=== PATIENT | male | born 1935 | race Caucasian/White ===

== ENCOUNTER 2017-01-02 22:46 | Inpatient (IN) ==
[2017-01-02] MEDS ORDERED: LACTATED RINGERS 1,000 ML IV ONE (23:29)
--- NOTE | 2017-01-02 23:33 | Emergency Department Note ---
Abdominal Pain HPI - General Chief Complaint: Abdominal Pain Stated Complaint: c/o stamach pain also fever Time Seen by Provider: 01/02/17 23:19 Mode of arrival: wheelchair - History of Present Illness HPI Narrative: Patient comes in today via EMS, too weak to get up on his own he weighs probably 300 pounds and has been getting weaker and weaker over the course of last 24 hours. States today had 2 episodes of vomiting, any changes colostomy bag about noon and there has been no output is bag since about noon. Does have a history of A. fib, chronic takes Coumadin. Very weak today, denies cough, history of smoking in the past but quit many years ago, history of colon cancer with colostomy in the left lower quadrant that he's had for last 20 years.denies urinary symptoms, he does have some chronic lower leg ulcers as well. MD Complaint: abdominal pain - Related Data Home Medications Medication Instructions Recorded Confirmed Allopurinol [Zyloprim] 200 mg PO DAILY 05/29/15 05/29/15 Furosemide [Lasix] 40 mg PO DAILY 05/29/15 05/29/15 Glimepiride [Amaryl] 1 mg PO QAMAC 05/29/15 05/29/15 Levothyroxine [Synthroid] 25 mcg PO DAILY 05/29/15 05/29/15 Oxybutynin Chloride [Oxybutynin 10 mg PO DAILY 05/29/15 05/29/15 Chloride ER] Simvastatin [Zocor] 40 mg PO HS 05/29/15 05/29/15 cloNIDine HCL [Catapres] 0.1 mg PO BID 05/29/15 05/29/15 hydrALAZINE [Apresoline] 25 mg PO BID 05/29/15 05/29/15 Previous Rx's Medication Instructions Recorded HYDROcodone/APAP 5/325MG [[place] 1 - 2 tab PO Q4HP PRN #20 tablet 05/29/15 5/325Mg] Allergies Allergy/AdvReac Type Severity Reaction Status Date / Time No Known Drug Allergies Allergy Unverified 05/29/15 10:46 Review of Systems All systems ED: reviewed and negative except as stated. Constitutional: Reports: fever, chills, weakness Cardiovascular: Reports: palpitations, dyspnea on exertion. Denies: chest pain Genitourinary: Denies: dysuria, frequency Musculoskeletal: Reports: back pain Abdominal Pain PMH - Past Medical History Attestation: Yes: The following information was validated with the patient. Medical history: Reports: atrial fibrillation, coronary artery disease, GERD, hyperlipidemia, obesity, osteoporosis, peripheral artery disease, other ( history of gout, history of colon cancer) Reports: diverticulosis, diverticulitis Surgical history ED: Reports: cancer surgery, orthopedic, other Family history: Reports: no significant family history - Social History Smoking status: Never smoker Alcohol use: Reports: None Physical Exam Limitations: no limitations General appearance: alert, in distress Head: atraumatic, normocephalic Eye: Present: PERRL, EOMI, conjunctival injection. Absent: scleral icterus, nystagmus ENT: mucous membranes dry, normal external ear exam Neck: Present: normal inspection, full ROM. Absent: tenderness, meningismus Chest: Present: normal inspection, symmetric chest wall rise. Absent: tenderness Respiratory: Present: normal lung sounds bilaterally. Absent: respiratory distress, wheezes, stridor Cardiovascular: Present: tachycardia, irregular rhythm Abdominal: Present: soft, distention, tenderness, hypoactive bowel sounds, hernia Abdominal tenderness: Present: epigastrium Extremities: Present: other (redness from the ankle on the right side up to the knee) Back: Present: normal inspection. Absent: CVA tenderness (R), CVA tenderness (L ) Neurological: Present: alert, oriented X3 Psychiatric: Present: normal affect Skin: Present: warm, dry, intact, erythema, other (Cellulitis right lower extremity) Course - Reevaluation(s) Reevaluation #1: Labs reviewed and I discussed hospitalization with the patient. I strongly recommended he be hospitalized for cellulitis of the right lower leg #2 atrial fibrillation with RVR. #3 CHF. #4 renal insufficiency, chronic #5 abdominal pain resolved. Unfortunately there were no beds available at our facility nor at [facility] nor at [facility] nor at [facility]. Patient was refusing to go to [place] and thus we are treating him here in our facility, he is getting digoxin for CHF and for his slow heart rate, his blood pressure would not tolerate any further intervention with calcium channel blockers and/or more beta blockers at. We did try a low-dose carvedilol. At this point he received IV Rocephin as well as IV vancomycin. He feels much better and we will repeat labs at this point, vital signs reassess and see if he would qualify for outpatient IV vancomycin and oral antibiotics. Reevaluation #2: His lungs are clear this morning, his blood pressures improved, clinically he looks a lot better he feels better he has more energy, he has been getting IV fluids, urinalysis is still pending but he does have a significant cellulitis to right lower leg, he has atrial fibrillation which is chronic for him but he is not on Coumadin and he is on hydralazine which might help his CHF somewhat but certainly would worsen his heart rate in the setting of atrial fibrillation.His kidney function is compromise but similar to lab values 2 years ago. Vital Signs Temperature 100.9 F H 01/02/17 22:47 Pulse Rate 139 H 01/02/17 22:47 Respiratory Rate 22 01/02/17 22:47 Blood Pressure 133/62 01/02/17 22:47 Pulse Oximetry (%) 97 01/02/17 22:47 Temperature 98.5 F 01/03/17 07:30 Pulse Rate 115 H 01/03/17 08:00 Respiratory Rate 22 01/03/17 08:00 Blood Pressure 117/65 01/03/17 08:00 Pulse Oximetry (%) 100 01/03/17 08:00 Abdominal Pain - MDM Narrative Medical decision making narrative: his diagnosis isCellulitis right lower leg number to atrial fibrillation rapid ventricular response, #3 abdominal pain resolved, history of colon cancer with colostomy left lower quadrant with peristomal hernia. So far no stool output into the colostomy bag. #4 renal insufficiency #5 borderline hypotension #6 CHF #7 fever associated with cellulitis. EKG so far is improving, borderline troponin which is probably from his CHF. We will recheck this this morning. At this point he is waiting for a bed to open up. - Lab Data Result diagrams: 01/03/17 07:45 01/03/17 07:45 Lab Results 01/02/17 01/02/17 01/02/17 Range/Units 23:45 23:45 23:45 WBC 5.5 (4.5-11.0) K/mcL RBC 3.27 L (4.50-5.90) M/mcL Hgb 11.1 L (13.5-16.5) g/dL Hct 32.7 L (41.0-55.0) % MCV 100.0 (80.0-100.0) fL MCH 33.8 (26.0-34.0) pg MCHC 33.8 (31.0-36.0) g/dL RDW 16.1 H (11.5-14.5) % Plt Count 102 L (140-440) K/mcL MPV 8.2 (7.4-10.4) fL Gran % 80.0 H (38.0-78.0) % Lymph % (Auto) 14.6 L (15.5-49.0) % [place] % (Auto) 4.5 (1.0-12.0) % Eos % (Auto) 0.8 (0.0-7.0) % Baso % (Auto) 0.1 (0.0-2.0) % Gran # 4.4 (1.8-8.0) K/mcL Lymph # (Auto) 0.8 L (1.5-4.8) K/mcL [place] # (Auto) 0.2 (0.1-0.9) K/mcL Eos # (Auto) 0 (0.0-0.7) K/mcL Baso # (Auto) 0 (0.0-0.3) K/mcL Band Neutrophils % ESR 43 H (0-15) mm/hr PT 14.8 H (11.9-14.5) sec INR 1.1 (0.9-1.1) VBG Lactic Acid (0.5-2.2) mmol/L Sodium 142 (133-145) mmol/L Potassium 4.3 (3.3-5.1) mmol/L Chloride 100 (96-108) mmol/L Carbon Dioxide 26 (22-30) mmol/L Anion Gap 16.0 (8-16) BUN 50 H (8-23) mg/dl Creatinine 2.4 H (0.7-1.2) mg/dl GFR Calculation 24 Glucose 116 H (70-105) mg/dL Calcium 9.0 (8.6-10.4) mg/dl Total Bilirubin 0.7 (0.0-1.0) mg/dL AST 29 (0-37) U/l ALT 15 (0-40) U/l Alkaline Phosphatase 99 (39-117) U/L Troponin T (0-0.03) ng/ml C-Reactive Protein 0.3 (0.0-0.8) mg/dl NT-Pro-B Natriuret Pep 4037.0 H (0-450) pg/ml Total Protein 6.8 (5.9-8.4) gm/dL Albumin 3.8 (3.2-5.2) gm/dL Globulin 3.0 (2.2-3.7) gm/dL Albumin/Globulin Ratio 1.3 (1.0-2.3) 01/02/17 01/02/17 01/03/17 Range/Units 23:45 23:45 07:45 WBC 7.4 (4.5-11.0) K/mcL RBC 2.95 L (4.50-5.90) M/mcL Hgb 9.9 L (13.5-16.5) g/dL Hct 29.7 L (41.0-55.0) % MCV 100.5 H (80.0-100.0) fL MCH 33.4 (26.0-34.0) pg MCHC 33.2 (31.0-36.0) g/dL RDW 15.9 H (11.5-14.5) % Plt Count 82 L (140-440) K/mcL MPV 8.5 (7.4-10.4) fL Gran % (38.0-78.0) % Lymph % (Auto) (15.5-49.0) % [place] % (Auto) (1.0-12.0) % Eos % (Auto) (0.0-7.0) % Baso % (Auto) (0.0-2.0) % Gran # (1.8-8.0) K/mcL Lymph # (Auto) (1.5-4.8) K/mcL [place] # (Auto) (0.1-0.9) K/mcL Eos # (Auto) (0.0-0.7) K/mcL Baso # (Auto) (0.0-0.3) K/mcL Band Neutrophils % Not Reportable ESR (0-15) mm/hr PT (11.9-14.5) sec INR (0.9-1.1) VBG Lactic Acid 1.3 (0.5-2.2) mmol/L Sodium (133-145) mmol/L Potassium (3.3-5.1) mmol/L Chloride (96-108) mmol/L Carbon Dioxide (22-30) mmol/L Anion Gap (8-16) BUN (8-23) mg/dl Creatinine (0.7-1.2) mg/dl GFR Calculation Glucose (70-105) mg/dL Calcium (8.6-10.4) mg/dl Total Bilirubin (0.0-1.0) mg/dL AST (0-37) U/l ALT (0-40) U/l Alkaline Phosphatase (39-117) U/L Troponin T 0.04 H* (0-0.03) ng/ml C-Reactive Protein (0.0-0.8) mg/dl NT-Pro-B Natriuret Pep (0-450) pg/ml Total Protein (5.9-8.4) gm/dL Albumin (3.2-5.2) gm/dL Globulin (2.2-3.7) gm/dL Albumin/Globulin Ratio (1.0-2.3) 01/03/17 Range/Units 07:45 WBC (4.5-11.0) K/mcL RBC (4.50-5.90) M/mcL Hgb (13.5-16.5) g/dL Hct (41.0-55.0) % MCV (80.0-100.0) fL MCH (26.0-34.0) pg MCHC (31.0-36.0) g/dL RDW (11.5-14.5) % Plt Count (140-440) K/mcL MPV (7.4-10.4) fL Gran % (38.0-78.0) % Lymph % (Auto) (15.5-49.0) % [place] % (Auto) (1.0-12.0) % Eos % (Auto) (0.0-7.0) % Baso % (Auto) (0.0-2.0) % Gran # (1.8-8.0) K/mcL Lymph # (Auto) (1.5-4.8) K/mcL [place] # (Auto) (0.1-0.9) K/mcL Eos # (Auto) (0.0-0.7) K/mcL Baso # (Auto) (0.0-0.3) K/mcL Band Neutrophils % ESR (0-15) mm/hr PT (11.9-14.5) sec INR (0.9-1.1) VBG Lactic Acid (0.5-2.2) mmol/L Sodium 141 (133-145) mmol/L Potassium 4.3 (3.3-5.1) mmol/L Chloride 102 (96-108) mmol/L Carbon Dioxide 25 (22-30) mmol/L Anion Gap 14.0 (8-16) BUN 50 H (8-23) mg/dl Creatinine 2.3 H (0.7-1.2) mg/dl GFR Calculation 26 Glucose 84 (70-105) mg/dL Calcium 8.5 L (8.6-10.4) mg/dl Total Bilirubin 0.8 (0.0-1.0) mg/dL AST 25 (0-37) U/l ALT 13 (0-40) U/l Alkaline Phosphatase 82 (39-117) U/L Troponin T (0-0.03) ng/ml C-Reactive Protein (0.0-0.8) mg/dl NT-Pro-B Natriuret Pep (0-450) pg/ml Total Protein 5.9 (5.9-8.4) gm/dL Albumin 3.3 (3.2-5.2) gm/dL Globulin 2.6 (2.2-3.7) gm/dL Albumin/Globulin Ratio 1.3 (1.0-2.3) Disposition Pt seen by [facility] only: No Condition: Undetermined Referrals: Apryl Bravo MD [Primary Care Provider] -
[2017-01-02] MEDS ORDERED: ACETAMINOPHEN 325 MG TABLET PO ONE (23:37)
[2017-01-02] MEDS ORDERED: DIGOXIN 500 MCG/2 ML AMPUL IV ONE (23:39)
[2017-01-02] MEDS ORDERED: CARVEDILOL 6.25 MG TABLET PO ONE (23:39)
[2017-01-03 00:32] LABS: Basophils # (Auto) 0 K/mcL (0.0-0.3); Basophils % (Auto) 0.1 % (0.0-2.0); Eosinophils # (Auto) 0 K/mcL (0.0-0.7); Eosinophils % (Auto) 0.8 % (0.0-7.0); Lymphocytes # (Auto) 0.8 K/mcL (1.5-4.8); Lymphocytes % (Auto) 14.6 % (15.5-49.0); Mean Corpuscular HGB Conc 33.8 g/dL (31.0-36.0); Mean Corpuscular Hemoglobin 33.8 pg (26.0-34.0); Monocytes # (Auto) 0.2 K/mcL (0.1-0.9); Monocytes % (Auto) 4.5 % (1.0-12.0); Platelet Count 102 K/mcL (140-440); RBC 3.27 M/mcL (4.50-5.90); Red Cell Distribution Width 16.1 % (11.5-14.5)
[2017-01-03] MEDS ORDERED: VANCOMYCIN 1,500 MG in 0.9 % SODIUM CHLORIDE 500 ML IV ONE (00:41)
[2017-01-03 00:55] LABS: ALT/SGPT 15 U/l (0-40); Albumin 3.8 gm/dL (3.2-5.2); Albumin/Globulin Ratio 1.3 (1.0-2.3); Alkaline Phosphatase 99 U/L (39-117); Blood Urea Nitrogen 50 mg/dl (8-23); C-Reactive Protein 0.3 mg/dl (0.0-0.8)
[2017-01-03] MEDS ORDERED: VANCOMYCIN 1,000 MG in 0.9 % SODIUM CHLORIDE 500 ML IV ONE (00:58)
[2017-01-03 01:24] LABS: Erythrocyte Sedimentation Rate 43 mm/hr (0-15)
[2017-01-03] MEDS ORDERED: DIGOXIN 500 MCG/2 ML AMPUL IV ONE (02:51)
[2017-01-03] MEDS ORDERED: cefTRIAXone 1 GM VIAL IV ONE (02:52)
[2017-01-03] MEDS ORDERED: IBUPROFEN 600 MG TABLET PO ONE (02:52)
[2017-01-03] MEDS ORDERED: 0.9 % SODIUM CHLORIDE 1,000 ML IV SCH ×2 (05:25→11:38)
--- NOTE | 2017-01-03 07:06 | XRay Report ---
CLINICAL INFORMATION: Fever COMPARISON: 07/28/2014 and 10/04/2012 chest x-ray FINDINGS: Moderate cardiomegaly has increased considerably. Mediastinum is unremarkable. Pulmonary vessels are mildly distended in the upper lungs. No definite edema. There is minor bibasilar atelectasis, but no definite infiltrates. No effusions. IMPRESSION: Mild CHF Interpreted and Authenticated by: Gene Capellan 01/03/17
[2017-01-03] MEDS ORDERED: ENOXAPARIN 120 MG/0.8 ML SYRINGE SQ ONE (07:57)
[2017-01-03 08:14] LABS: Mean Cell Volume 100.5 fL (80.0-100.0); Mean Corpuscular HGB Conc 33.2 g/dL (31.0-36.0); Mean Corpuscular Hemoglobin 33.4 pg (26.0-34.0); Platelet Count 82 K/mcL (140-440); RBC 2.95 M/mcL (4.50-5.90); Red Cell Distribution Width 15.9 % (11.5-14.5)
[2017-01-03 08:32] LABS: ALT/SGPT 13 U/l (0-40); Albumin 3.3 gm/dL (3.2-5.2); Albumin/Globulin Ratio 1.3 (1.0-2.3); Alkaline Phosphatase 82 U/L (39-117); Blood Urea Nitrogen 50 mg/dl (8-23)
[2017-01-03 08:50] LABS: Band Neutrophils % 5 % (0-10); Eosinophils % (Manual) 1 % (0-7); Lymphocytes % 19 % (15-49); Macrocytosis 1+ (NONE SEEN); Monocytes % (Manual) 8 % (1-12); Platelet Estimate DECREASED (NORMAL); RBC Morphology ABNORM (NORMAL); Segmented Neutrophils % 66 % (38-78)
[2017-01-03 10:02] LABS: Appearance,Urine CLEAR; Bilirubin,Urine NEG (NEG); Color,Urine YELLOW; Glucose,Urine (UA) NEGATIVE (NEG); Leukocyte Esterase,Urine NEG /uL (NEG); Nitrate,Urine NEG (NEG); Protein,Urine NEG (NEG); Specific Gravity,Urine 1.015 (1.000-1.035); Urine Blood NEG mg/dL (<0.03); Urobilinogen,Urine NEG (NEG)
[2017-01-03] MEDS ORDERED: ONDANSETRON 4 MG/2 ML VIAL IV PRN (11:38)
[2017-01-03] MEDS ORDERED: ALBUTEROL SULFATE 2.5 MG/3 ML NEBULIZER NEB PRN (11:38)
[2017-01-03] MEDS ORDERED: NALOXONE HCL 0.4 MG/ML VIAL IV PRN (11:38)
[2017-01-03] MEDS ORDERED: ACETAMINOPHEN 325 MG TABLET PO PRN (11:38)
[2017-01-03] MEDS ORDERED: DEXTROSE 50% 50 ML VIAL IV PRN (11:38)
[2017-01-03] MEDS ORDERED: DEXTROSE 31 GM ORAL.SUSP PO PRN (11:38)
[2017-01-03] MEDS ORDERED: PIPERACILLIN SODIUM/TAZOBACTAM 3.375 GM in DEXTROSE 5% IN WATER 50 ML IV SCH (12:00)
--- NOTE | 2017-01-03 12:23 | Internal Med History&Physical ---
Medical - H&P: HPI Patient information: Note initiated : 01/03/17 at 12:22 pm Patient: Kevin Albrecht 81 y/o M admitted on 01/03/17 for c/o stamach pain also fever. History of present illness: Mr. Albrecht is a 81 year old man who was in his normal state of health until about 2 days ago when he noticed that his right foot was getting red and swollen. Yesterday he started having shaking chills and noticed worsening of his right foot pain. He presented to the emergency room where he was found to have high fever, and significant cellulitis, as well as acute renal dysfunction. He was also found to have atrial fibrillation with rapid ventricular response in the ER. This responded to IV fluids and IV diltiazem. However, he did drop his blood pressure after diltiazem. He is now admitted for further evaluation and treatment. Otherwise, patient denies recent headaches or dizziness, new eye or ear symptoms. He says he has had a little bit of a cough and a sore throat, but no shortness of breath. He denies chest pain or palpitations. He says he has had some abdominal discomfort and nausea and particularly lower abdominal discomfort lately around the site of his colostomy. He thinks he is having less stool in his colostomy bag than is normal for him. He denies dysuria. Past medical history: Type 2 diabetes with diabetic neuropathy Sinusitis Anemia Aortic stenosis Atrial fibrillation Hypertension Chronic kidney disease, stage III BPH Chronic pain of shoulders and knees, generalized arthritic osteoarthritis History of colon cancer status post colostomy Hypersomnia with sleep apnea Hypothyroidism Iron deficiency anemia Mixed stress and urge urinary incontinence Gout? Medications: Allopurinol 100 mg 2 tabs daily Aspirin 81 mg daily Clonidine 0.1 mg half tab in the morning 1 tab nightly Iron sulfate 325 mg daily Lasix 20 mg 2 tabs daily Glimepiride 2 mg half tab by mouth every morning Hydralazine 25 mg twice daily Levothyroxine 25 mcg daily Oxybutynin ER 10 mg daily Simvastatin 40 mg nightly Saline nasal spray as needed Allergies: No known drug allergies Family history: Father had Parkinson's disease. Mother had multiple sclerosis and hypertension. Brothers had coronary disease. Social history: The patient is and lives with his . He says he quit smoking in high school. He has not had any alcohol for about 12 years. He does not use drugs. He has 2 sons that live nearby. Health maintenance: Patient had a pneumococcal vaccine in January 2016, and a Pneumovax in November 2000 Medical - H&P: Meds Home Medications Medication Instructions Recorded Confirmed Type Allopurinol [Zyloprim] 200 mg PO DAILY 05/29/15 01/03/17 History Furosemide [Lasix] 40 mg PO DAILY 05/29/15 01/03/17 History Glimepiride [Amaryl] 1 mg PO QAMAC 05/29/15 01/03/17 History HYDROcodone/APAP 5/325MG [[place] 1 - 2 tab PO Q4HP PRN #20 tablet 05/29/15 Rx 5/325Mg] Levothyroxine [Synthroid] 25 mcg PO DAILY 05/29/15 01/03/17 History Oxybutynin Chloride [Oxybutynin 10 mg PO DAILY 05/29/15 01/03/17 History Chloride ER] Simvastatin [Zocor] 40 mg PO HS 05/29/15 01/03/17 History cloNIDine HCL [Catapres] 0.1 mg PO BID 05/29/15 01/03/17 History hydrALAZINE [Apresoline] 25 mg PO BID 05/29/15 01/03/17 History Allergies Allergy/AdvReac Type Severity Reaction Status Date / Time No Known Drug Allergies Allergy Unverified 05/29/15 10:46 Medical - H&P: Exam - Constitutional Vitals: Temp Pulse Resp BP Pulse Ox 98.5 F 115 H 28 H 104/59 100 01/03/17 11:09 01/03/17 11:09 01/03/17 11:09 01/03/17 11:09 01/03/17 11:09 On exam, he is an overweight man, who is not otherwise in distress. T-max is 100.9. Respiratory rate ranges from 18-35. Head: Normocephalic, atraumatic. Eyes: PERRLA, EOMI, anicteric. Ears: TMs and canals are clear. Pharynx: Pharynx is quite crowded. Teeth are in good repair. Mucosa appears normal. Neck: Is supple, without lymphadenopathy, JVD, thyromegaly, bruits. Cardiac exam: Shows an irregularly irregular rhythm, with normal S1 and S2. No murmurs, rubs, gallops are noted. Lungs: Clear to auscultation, without rales, rhonchi, wheezes. Abdomen: Is quite obese. There is a left-sided colostomy with a small amount of liquid brown stool in the bag. Abdomen appears soft and nontender. Bowel sounds are active. Extremities: Patient has bilateral stasis dermatitis of his distal legs. He has about 2+ pitting edema. The right lower extremity is also pink extending from his foot all the way up to the upper inner thigh. The leg is warm to touch, but not particularly tender. There is a dry shallow right lateral malleolus ulcer noted. Neurologic exam: Is grossly nonfocal. Medical - H&P: Reslt - Labs CBC & Chem 7: 01/03/17 07:45 01/04/17 04:00 Labs: Short CBC 01/02/17 01/03/17 Range/Units 23:45 07:45 WBC 5.5 7.4 (4.5-11.0) K/mcL Hgb 11.1 L 9.9 L (13.5-16.5) g/dL Hct 32.7 L 29.7 L (41.0-55.0) % Plt Count 102 L 82 L (140-440) K/mcL BMP 01/02/17 01/03/17 23:45 07:45 Sodium 142 141 Potassium 4.3 4.3 Chloride 100 102 Carbon Dioxide 26 25 BUN 50 H 50 H Creatinine 2.4 H 2.3 H Glucose 116 H 84 Calcium 9.0 8.5 L Cardiac Enzymes 01/02/17 01/03/17 Range/Units 23:45 07:45 Troponin T 0.04 H* 0.05 H* (0-0.03) ng/ml Liver Function 01/02/17 01/03/17 Range/Units 23:45 07:45 Total Bilirubin 0.7 0.8 (0.0-1.0) mg/dL AST 29 25 (0-37) U/l ALT 15 13 (0-40) U/l Alkaline Phosphatase 99 82 (39-117) U/L Albumin 3.8 3.3 (3.2-5.2) gm/dL Urine 01/03/17 Range/Units 09:35 Urine Color Yellow Urine Appearance Clear Urine pH 5.0 (5.0-9.0) Ur Specific [place] 1.015 (1.000-1.035) Urine Protein Neg (NEG) mg/dL Urine Glucose (UA) Negative (NEG) mg/dL EKG: Shows atrial fibrillation at a rate of 116, with early right bundle branch block. There are no obvious acute ischemic changes. Next Lactic acid is normal at 1.3 Chest x-ray: Shows mild pulmonary vascular congestion. Medical - H&P: A/P (1) Cellulitis of right foot Current visit: Yes Status: Acute (2) Atrial fibrillation with RVR Current visit: Yes Status: Acute (3) Elevated troponin Current visit: Yes Status: Acute (4) CHF (congestive heart failure) Current visit: Yes Status: Acute (5) Anemia Current visit: Yes Status: Acute (6) Thrombocytopenia Current visit: Yes Status: Acute - Narrative A/P Narrative: #1. Infectious disease. SIRS syndrome. Patient presents with severe cellulitis of his right foot and leg, associated with a diabetic foot ulcer. -Admit to ICU for possible early sepsis. -IV fluids, blood cultures. -Wound care consult. -Empiric coverage with Zosyn and vancomycin. 2. Cardiac. Patient presents with what appears to be new onset atrial fibrillation with rapid ventricular response. He was given diltiazem and digoxin in the emergency room, and has converted back to sinus rhythm at this time. Continue to monitor on telemetry. If atrial fibrillation persists or recurs, we may need to discuss anticoagulation therapy. -Troponin and BNP are mildly elevated, but this may be a false positive in the setting of his chronic kidney disease. -Check echocardiogram. -Probable previous history of congestive heart failure. This is not entirely clear on the records we obtained from his primary care physician's office. 3. CODE STATUS: Patient requests full code. His will act as his POA. 4. DVT prophylaxis: Subcu heparin. 5. Hematologic. Patient has mild anemia and thrombocytopenia, both of which appear chronic. Monitor platelets while on heparin. 6. Endocrine. Type 2 diabetes. Hold glimepiride and cover with sliding scale insulin, until we see how he will do. -Hypothyroidism. Continue levothyroxine. 7. Reported chronic kidney disease, although the patient does not seem fully aware of this. We are trying to send to Dr. Herrmann's office for records. -Patient may need nephrology evaluation. Recheck labs after hydration. Approximately 65 minutes was spent today reviewing the patient's records, reviewing his case with the ER MD, interviewing and examining him, and writing orders.
[2017-01-03] MEDS: PIPERACILLIN SODIUM/TAZOBACTAM 3.375 GM in DEXTROSE 5% IN WATER 100 ML IV SCH ×2 (13:00→17:35)
[2017-01-03] MEDS: INSULIN LISPRO 1 UNIT/0.01 ML UNIT SQ SCH ×3 (13:11→20:37)
[2017-01-03] MEDS: HEPARIN 5,000 UNIT/ML VIAL SQ SCH (20:37)
[2017-01-04] MEDS ORDERED: HYDROcodone/APAP 5/325MG TABLET PO PRN (00:27)
[2017-01-04] MEDS: PIPERACILLIN SODIUM/TAZOBACTAM 3.375 GM in DEXTROSE 5% IN WATER 100 ML IV SCH ×4 (00:35→17:52)
[2017-01-04 05:29] LABS: ALT/SGPT 14 U/l (0-40); Albumin 3.2 gm/dL (3.2-5.2); Alkaline Phosphatase 91 U/L (39-117); Bilirubin,Direct 0.2 mg/dL (0.0-0.3); Blood Urea Nitrogen 44 mg/dl (8-23); Gamma Glutamyl Transpeptidase 48 U/L (8-61); Magnesium 2.1 mg/dL (1.6-2.5); Uric Acid 5.5 mg/dL (2.5-8.0)
[2017-01-04] MEDS ORDERED: cloNIDine HCL 0.1 MG TABLET PO SCH (09:00)
[2017-01-04] MEDS: INSULIN LISPRO 1 UNIT/0.01 ML UNIT SQ SCH ×4 (09:22→20:25)
[2017-01-04] MEDS: hydrALAZINE 25 MG TABLET PO SCH ×2 (09:23→20:26)
[2017-01-04] MEDS: FUROSEMIDE 40 MG TABLET PO SCH (09:23)
[2017-01-04] MEDS: OXYBUTYNIN CHLORIDE 5 MG TAB.XL.24H PO SCH (09:23)
[2017-01-04] MEDS: METOPROLOL TARTRATE 25 MG TABLET PO SCH ×2 (09:24→20:26)
[2017-01-04] MEDS: HEPARIN 5,000 UNIT/ML VIAL SQ SCH ×2 (09:24→20:23)
[2017-01-04] MEDS: ALLOPURINOL 100 MG TABLET PO SCH (09:24)
--- NOTE | 2017-01-04 11:46 | Internal Med Progress Note ---
Medical - PN: Subj Patient information: Note initiated : 01/04/17 at 11:46 am Service Date, if different from initiated Date: [] Patient: Kevin Albrecht 81 y/o M admitted on 01/03/17 for Cellulitis of Right Foot, AFib w/ RVR. Chief Complaint: [] Interval history: January 03, 2017: History of present illness: Mr. Albrecht is a 81 year old man who was in his normal state of health until about 2 days ago when he noticed that his right foot was getting red and swollen. Yesterday he started having shaking chills and noticed worsening of his right foot pain. He presented to the emergency room where he was found to have high fever, and significant cellulitis, as well as acute renal dysfunction. He was also found to have atrial fibrillation with rapid ventricular response in the ER. This responded to IV fluids and IV diltiazem. However, he did drop his blood pressure after diltiazem. He is now admitted for further evaluation and treatment. Otherwise, patient denies recent headaches or dizziness, new eye or ear symptoms. He says he has had a little bit of a cough and a sore throat, but no shortness of breath. He denies chest pain or palpitations. He says he has had some abdominal discomfort and nausea and particularly lower abdominal discomfort lately around the site of his colostomy. He thinks he is having less stool in his colostomy bag than is normal for him. He denies dysuria. January 04: Today, the patient says he is feeling quite a bit better. He feels that he slept quite well because he had his CPAP machine. He notes that he is having increased stool output in his colostomy, which relieves his concerns about constipation. He says he does feel a bit chilled today, but denies fever, chest pain or shortness of breath or palpitations. He denies abdominal pain, nausea or vomiting, dysuria. We did obtain records from Dr. Herrmann, they do show that the patient has chronic kidney disease. His baseline creatinine appears to run around 2.1, as of last year. Patient's notes that the patient does not follow-up with Dr. Herrmann very often because he does not like to pay the high co-pay. - Constitutional Vitals: Vital Signs Temp Pulse Resp BP Pulse Ox 98.3 F 131 H 16 147/84 99 01/04/17 08:00 01/04/17 08:00 01/04/17 08:00 01/04/17 09:18 01/04/17 08:00 Period Temp Pulse Resp BP Sys/Mohr Pulse Ox Last 24 Hr 98.2 F-100.1 F 119-131 16-18 102-147/61-95 97-100 Intake and Output 01/03/17 01/04/17 01/04/17 21:59 05:59 13:59 Intake Total 200 / 200 380 / 380 480 / 480 Output Total 1075 / 1075 Balance 200 / 200 -695 / -695 480 / 480 Weight 265 lb 9.6 oz Intake & Output: Intake & Output 01/03/17 01/04/17 01/04/17 21:59 05:59 13:59 Intake Total 200 / 200 380 / 380 480 / 480 Output Total 1075 / 1075 Balance 200 / 200 -695 / -695 480 / 480 Weight 265 lb 9.6 oz Intake: IV 200 / 200 100 / 100 Zosyn 3.375 gm In Dextrose 5% 200 / 200 100 / 100 in Water 100 ml @ 100 mls/hr IV Q6H [facility] Rx#:[id number] Oral 280 / 280 480 / 480 Output: Urine Catheter Amount 775 / 775 Stool 300 / 300 Other: Meal Breakfast Percent of Meal Consumed 100% Feeding Ability Assist with Tray Set Up On exam, patient is sitting up in a chair, trimming a colostomy appliance while his assist him. He is awake and alert, and seems to be in good spirits. Neck is supple without obvious JVD. Cardiac exam shows an irregularly irregular rhythm. Lungs have a few crackles at the bases, but are otherwise clear. Abdomen is obese, but soft without significant tenderness. Left sided colostomy bag has liquid brown stool. Extremities: Show about 2+ pitting edema of both lower legs. The right leg continues to be red and warm to the touch with the erythema extending up onto the inner thigh. Neurologic exam: The patient appears to be quite forgetful about his medical history, but otherwise exam is grossly nonfocal today. Medical - PN: Obj Da - Labs CBC & Chem 7: 01/03/17 07:45 01/04/17 04:00 Labs: Abnormal Lab Results 01/04/17 01/03/1717 04:00 07:45 07:45 RBC Hgb Hct MCV RDW Plt Count Gran % Lymph % (Auto) Lymph # (Auto) Platelet Estimate RBC Morphology Macrocytosis ESR PT BUN 44 H 50 H Creatinine 2.2 H 2.3 H Glucose Calcium 8.5 L 8.5 L Troponin T 0.05 H* NT-Pro-B Natriuret Pep 01/03/17 01/02/17 01/02/17 07:45 23:45 23:45 RBC 2.95 L Hgb 9.9 L Hct 29.7 L MCV 100.5 H RDW 15.9 H Plt Count 82 L Gran % Lymph % (Auto) Lymph # (Auto) Platelet Estimate Decreased A RBC Morphology Abnorm A Macrocytosis 1+ A ESR PT BUN 50 H Creatinine 2.4 H Glucose 116 H Calcium Troponin T 0.04 H* NT-Pro-B Natriuret Pep 4037.0 H 01/02/17 01/02/17 23:45 23:45 RBC 3.27 L Hgb 11.1 L Hct 32.7 L MCV RDW 16.1 H Plt Count 102 L Gran % 80.0 H Lymph % (Auto) 14.6 L Lymph # (Auto) 0.8 L Platelet Estimate RBC Morphology Macrocytosis ESR 43 H PT 14.8 H BUN Creatinine Glucose Calcium Troponin T NT-Pro-B Natriuret Pep January 04: Echocardiogram: Left ventricle shows moderate concentric LVH, with ejection fraction 65-70%. Left atrium is moderate to severely dilated, and right atrium is mildly dilated. Moderate mitral calcification. Moderate pulmonary hypertension. Severe valvular aortic stenosis. January 03: EKG: Shows atrial fibrillation at a rate of 116, with early right bundle branch block. There are no obvious acute ischemic changes. Lactic acid is normal at 1.3 Chest x-ray: Shows mild pulmonary vascular congestion. Urinalysis is essentially normal. Nasal MRSA screen is negative. Blood cultures are negative so far. Meds: Medications Acetaminophen (Tylenol) 650 mg PO Q6HP PRN PRN Reason: PAIN/FEVER > 101 Hydrocodone Bitart/Acetaminophen ([place] 5/325mg) 1 tab PO Q4HP PRN PRN Reason: PAIN LEVEL 3-6 Albuterol Sulfate (Ventolin) 2.5 mg NEB Q4HRT PRN PRN Reason: Shortness Of Breath Or Wheezing Allopurinol (Zyloprim) 200 mg PO DAILY [facility] Last Admin: 01/04/17 09:24 Dose: 200 mg Dextrose (Dextrose 50%) 0 ml IV UD PRN PRN Reason: Hypoglycemia Diagnostic Test (Pha) (Accu-Chek) 1 each FS ACHS [facility] Last Admin: 01/04/17 08:30 Dose: 1 each Docusate Sodium (Colace) 100 mg PO BID PRN PRN Reason: Constipation Furosemide (Lasix) 40 mg PO DAILY [facility] Last Admin: 01/04/17 09:23 Dose: 40 mg Glucose (Insta-Glucose) 15 gm PO PRN PRN PRN Reason: Hypoglycemia Heparin Sodium (Porcine) (Heparin) 5,000 unit SQ Q12 [facility] Last Admin: 01/04/17 09:24 Dose: 5,000 unit Hydralazine HCl (Apresoline) 25 mg PO BID [facility] Last Admin: 01/04/17 09:23 Dose: 25 mg Piperacillin Sod/Tazobactam (Sod 3.375 gm/ Dextrose) 100 mls @ 100 mls/hr IV Q6H [facility] Last Admin: 01/04/17 05:30 Dose: 100 mls/hr Insulin Human Lispro (Humalog) 0 unit SQ [facility] PRN Reason: Protocol Last Admin: 01/04/17 09:22 Dose: Not Given Levothyroxine Sodium (Synthroid) 25 mcg PO ACB [facility] Metoprolol Tartrate (Lopressor) 25 mg PO BID [facility] Last Admin: 01/04/17 09:24 Dose: 25 mg Naloxone HCl (Narcan) 0.1 mg IV Q2MIN PRN PRN Reason: Opiate Reversal Ondansetron HCl (Zofran) 4 mg IV Q4HP PRN PRN Reason: Nausea And Vomiting Oxybutynin Chloride (Ditropan Xl) 10 mg PO DAILY [facility] Last Admin: 01/04/17 09:23 Dose: 10 mg Simvastatin (Zocor) 40 mg PO [facility] Medical - PN: A/P - Time Spent With Patient Total time spent is greater than 50% in coordination of care (as documented) at patient's floor/unit and/or counseling patient: 25 - 35 minutes (1) Cellulitis of right foot Status: Acute Current Visit: Yes (2) Atrial fibrillation with RVR Status: Acute Current Visit: Yes (3) Elevated troponin Status: Acute Current Visit: Yes (4) CHF (congestive heart failure) Status: Acute Current Visit: Yes (5) Anemia Status: Acute Current Visit: Yes (6) Thrombocytopenia Status: Acute Current Visit: Yes - Narrative A/P Narrative: #1. Infectious disease. SIRS syndrome. Patient presents with cellulitis of his right foot and leg, associated with a diabetic foot ulcer. He appeared to have possible early sepsis last night, but is much improved today. -Blood cultures are pending. - of wound care is now following. Continue empiric coverage with Zosyn and vancomycin. 2. Cardiac. -Patient presented with what we thought was new onset atrial fibrillation with rapid ventricular response. However, old records indicate he has had atrial fibrillation in the past, although he cannot recall this. His does recall a previous diagnosis of this. It is not clear why he is not on anticoagulation therapy or rate control drugs. His really cannot recall. -Clonidine is held today, and metoprolol added for better rate control. Continue to monitor on telemetry. If atrial fibrillation persists , we may need to discuss anticoagulation therapy. -Troponin and BNP are mildly elevated, but this may be a false positive in the setting of his chronic kidney disease. Echocardiogram shows normal LV function, but dilated lateral atria probably explains his atrial fibrillation. He has severe aortic stenosis, but does not report significant dyspnea or chest pain. I suspect he leads a very sedentary lifestyle. 3. CODE STATUS: Patient requests full code. His will act as his POA. 4. DVT prophylaxis: Subcu heparin. 5. Hematologic. Patient has mild anemia and thrombocytopenia, both of which appear chronic. Monitor platelets while on heparin. 6. Endocrine. Type 2 diabetes. This is ranging from 90-170. Glimepiride is on hold. Continue sliding scale coverage. Sulfonylureas to increase his risk for hypoglycemia, especially in the setting of renal disease. I think this should be discontinued. -Hypothyroidism. Continue levothyroxine. 7. chronic kidney disease, although the patient does not seem fully aware of this. creatinine is apparently near 2.1. He is near this at this time. He should follow-up with Dr. Herrmann, but apparently does not like to pay the co- pay to do this. Continue Lasix, hydralazine, metoprolol for hypertension.. Medical - PN: Qual - Stroke Symptom Onset Unknown: No - VTE Deep Vein Thrombosis/Pulmonary Embolism Present on Admission: No
[2017-01-04] MEDS: LEVOTHYROXINE 25 MCG TABLET PO SCH (17:00)
--- NOTE | 2017-01-04 18:47 | General Surgery Consult Note ---
History of Present Illness Patient information: Note initiated : 01/04/17 at 6:46 pm Service Date, if different from initiated Date: [] Patient: Kevin Albrecht 81 y/o M admitted on 01/03/17 for Cellulitis of Right Foot, AFib w/ RVR. Chief Complaint: [] Consult date: 01/04/17 Requesting physician: Taina Garcia (Wound care. ) History of present illness: I saw this patient in ICU 120/C along with nursing staff. Admitted via ER for Low grader fever, cellulitis and dermatitis of legs right > left and superficial skin abrasion / epithelial ulcer over lateral malleolus ankle area. Wound care was consulted for evaluation and recommendations. Patient was noted to have AF with arrhythmia. Started on medications. I reviewed details of his past medical and surgical history Medications and Allergies Home Medications Medication Instructions Recorded Confirmed Type Allopurinol [Zyloprim] 200 mg PO DAILY 05/29/15 01/03/17 History Furosemide [Lasix] 40 mg PO DAILY 05/29/15 01/03/17 History Glimepiride [Amaryl] 1 mg PO QAMAC 05/29/15 01/03/17 History HYDROcodone/APAP 5/325MG [[place] 1 - 2 tab PO Q4HP PRN #20 tablet 05/29/15 Rx 5/325Mg] Levothyroxine [Synthroid] 25 mcg PO DAILY 05/29/15 01/03/17 History Oxybutynin Chloride [Oxybutynin 10 mg PO DAILY 05/29/15 01/03/17 History Chloride ER] Simvastatin [Zocor] 40 mg PO HS 05/29/15 01/03/17 History cloNIDine HCL [Catapres] 0.1 mg PO BID 05/29/15 01/03/17 History hydrALAZINE [Apresoline] 25 mg PO BID 05/29/15 01/03/17 History Allergies Allergy/AdvReac Type Severity Reaction Status Date / Time No Known Drug Allergies Allergy Unverified 05/29/15 10:46 Exam Temp Pulse Resp BP Pulse Ox 99.2 F H 114 H 18 144/92 100 01/04/17 16:00 01/04/17 16:00 01/04/17 16:00 01/04/17 16:00 01/04/17 16:00 - General physical appearance well nourished, no distress - Eyes PERRL, normal ocular movement - ENT normal pinna, normal nares, normal mucosa, no congestion - Head Head exam IM: Present: atraumatic, normal inspection, normocephalic - Neck no masses, no bruits, trachea midline, no lymphadectomy, no venous distension - Cardiovascular Cardiovascular exam IM: Present: irregular rhythm - Respiratory normal expansion, normal respiratory effort, clear to auscultation - Abdomen Abdomen: Present: soft, non tender, bowel sounds, surgical scars, wound ( Colostomy. H/O surgery for colon cancer, ) - Integumentary Present: other (Post phlebitis syndrome and chronic phlebitis / dermatitis of legs bilaterally , right more than left. Superficial skin abrasion ulceration over right lateral malleolus. ) - Neurologic Present: normal coordination, other (Non focal / lateralizing neurological examination. Peripheral neuropathy. ) - Psychiatric Present: oriented to time, oriented to person, oriented to place, speech is normal, memory intact Results - Labs 01/05/17 03:50 01/05/17 03:50 Abnormal lab results 01/04/17 Range/Units 04:00 BUN 44 H (8-23) mg/dl Creatinine 2.2 H (0.7-1.2) mg/dl Calcium 8.5 L (8.6-10.4) mg/dl Diabetes panel 01/04/17 Range/Units 04:00 Sodium 140 (133-145) mmol/L Potassium 4.0 (3.3-5.1) mmol/L Chloride 103 (96-108) mmol/L Carbon Dioxide 22 (22-30) mmol/L BUN 44 H (8-23) mg/dl Creatinine 2.2 H (0.7-1.2) mg/dl Glucose 88 (70-105) mg/dL Calcium 8.5 L (8.6-10.4) mg/dl AST 29 (0-37) U/l ALT 14 (0-40) U/l Alkaline Phosphatase 91 (39-117) U/L Total Protein 6.4 (5.9-8.4) gm/dL Albumin 3.2 (3.2-5.2) gm/dL Triglycerides 53 (<150) mg/dl Calcium panel 01/04/17 Range/Units 04:00 Calcium 8.5 L (8.6-10.4) mg/dl Phosphorus 3.1 (2.7-4.5) mg/dL Albumin 3.2 (3.2-5.2) gm/dL Pituitary panel 01/04/17 Range/Units 04:00 Sodium 140 (133-145) mmol/L Potassium 4.0 (3.3-5.1) mmol/L Chloride 103 (96-108) mmol/L Carbon Dioxide 22 (22-30) mmol/L BUN 44 H (8-23) mg/dl Creatinine 2.2 H (0.7-1.2) mg/dl Glucose 88 (70-105) mg/dL Calcium 8.5 L (8.6-10.4) mg/dl Adrenal panel 01/04/17 Range/Units 04:00 Sodium 140 (133-145) mmol/L Potassium 4.0 (3.3-5.1) mmol/L Chloride 103 (96-108) mmol/L Carbon Dioxide 22 (22-30) mmol/L BUN 44 H (8-23) mg/dl Creatinine 2.2 H (0.7-1.2) mg/dl Glucose 88 (70-105) mg/dL Calcium 8.5 L (8.6-10.4) mg/dl Total Bilirubin 0.8 (0.0-1.0) mg/dL AST 29 (0-37) U/l ALT 14 (0-40) U/l Alkaline Phosphatase 91 (39-117) U/L Total Protein 6.4 (5.9-8.4) gm/dL Albumin 3.2 (3.2-5.2) gm/dL All other labs normal. 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 Dry skin and superficial skin abrasion right lateral ankle area. Plan: Clean with Chlorhexidine daily from groins to toes and apply moisturizing skin lotion. Place CHUCKS absorbant pad under buttocks , hips and thighs all times. Will see again on PRN basis and follow along while oke is in hospital. Status: Chronic Priority: Low Comment: Conservative management. Skin , Nail and Hair hygiene discussed with nursing staff.
[2017-01-04] MEDS: SIMVASTATIN 40 MG TABLET PO SCH (20:26)
[2017-01-05] MEDS: PIPERACILLIN SODIUM/TAZOBACTAM 3.375 GM in DEXTROSE 5% IN WATER 100 ML IV SCH ×4 (00:30→17:18)
[2017-01-05 05:43] LABS: Basophils # (Auto) 0 K/mcL (0.0-0.3); Basophils % (Auto) 0.2 % (0.0-2.0); Eosinophils # (Auto) 0.1 K/mcL (0.0-0.7); Eosinophils % (Auto) 2.7 % (0.0-7.0); Granulocytes % (Auto) 60.3 % (38.0-78.0); Lymphocytes # (Auto) 1.4 K/mcL (1.5-4.8); Lymphocytes % (Auto) 26.3 % (15.5-49.0); Mean Cell Volume 100.9 fL (80.0-100.0); Mean Corpuscular HGB Conc 33.6 g/dL (31.0-36.0); Mean Corpuscular Hemoglobin 33.9 pg (26.0-34.0); Monocytes # (Auto) 0.6 K/mcL (0.1-0.9); Monocytes % (Auto) 10.5 % (1.0-12.0); Platelet Count 110 K/mcL (140-440); RBC 3.27 M/mcL (4.50-5.90)
[2017-01-05 06:02] LABS: ALT/SGPT 14 U/l (0-40); Albumin 3.3 gm/dL (3.2-5.2); Alkaline Phosphatase 113 U/L (39-117); Bilirubin,Direct < 0.2 mg/dL (0.0-0.3); Blood Urea Nitrogen 48 mg/dl (8-23); Gamma Glutamyl Transpeptidase 55 U/L (8-61); Magnesium 2.2 mg/dL (1.6-2.5); Uric Acid 4.8 mg/dL (2.5-8.0)
[2017-01-05] MEDS: HYDROcodone/APAP 5/325MG TABLET PO PRN ×2 (07:02→19:24)
[2017-01-05] MEDS: INSULIN LISPRO 1 UNIT/0.01 ML UNIT SQ SCH ×4 (07:06→20:50)
[2017-01-05] MEDS: DOCUSATE SODIUM 100 MG CAPSULE PO PRN ×2 (07:39→20:51)
[2017-01-05] MEDS: LEVOTHYROXINE 25 MCG TABLET PO SCH (07:39)
[2017-01-05] MEDS: ALLOPURINOL 100 MG TABLET PO SCH (08:50)
[2017-01-05] MEDS: METOPROLOL TARTRATE 25 MG TABLET PO SCH ×2 (08:52→19:24)
[2017-01-05] MEDS: FUROSEMIDE 40 MG TABLET PO SCH (08:53)
[2017-01-05] MEDS: hydrALAZINE 25 MG TABLET PO SCH ×2 (08:53→19:24)
[2017-01-05] MEDS: OXYBUTYNIN CHLORIDE 5 MG TAB.XL.24H PO SCH (08:54)
[2017-01-05] MEDS: HEPARIN 5,000 UNIT/ML VIAL SQ SCH ×2 (08:54→20:51)
--- NOTE | 2017-01-05 11:05 | Internal Med Progress Note ---
Medical - PN: Subj Patient information: Note initiated : 01/05/17 at 11:05 am Service Date, if different from initiated Date: [] Patient: Kevin Albrecht 81 y/o M admitted on 01/03/17 for Cellulitis of Right Foot, AFib w/ RVR. Chief Complaint: [] Interval history: January 03, 2017: History of present illness: Mr. Albrecht is a 81 year old man who was in his normal state of health until about 2 days ago when he noticed that his right foot was getting red and swollen. Yesterday he started having shaking chills and noticed worsening of his right foot pain. He presented to the emergency room where he was found to have high fever, and significant cellulitis, as well as acute renal dysfunction. He was also found to have atrial fibrillation with rapid ventricular response in the ER. This responded to IV fluids and IV diltiazem. However, he did drop his blood pressure after diltiazem. He is now admitted for further evaluation and treatment. Otherwise, patient denies recent headaches or dizziness, new eye or ear symptoms. He says he has had a little bit of a cough and a sore throat, but no shortness of breath. He denies chest pain or palpitations. He says he has had some abdominal discomfort and nausea and particularly lower abdominal discomfort lately around the site of his colostomy. He thinks he is having less stool in his colostomy bag than is normal for him. He denies dysuria. January 04: Today, the patient says he is feeling quite a bit better. He feels that he slept quite well because he had his CPAP machine. He notes that he is having increased stool output in his colostomy, which relieves his concerns about constipation. He says he does feel a bit chilled today, but denies fever, chest pain or shortness of breath or palpitations. He denies abdominal pain, nausea or vomiting, dysuria. We did obtain records from Dr. Herrmann, they do show that the patient has chronic kidney disease. His baseline creatinine appears to run around 2.1, as of last year. Patient's notes that the patient does not follow-up with Dr. Herrmann very often because he does not like to pay the high co-pay. January 05: Today, the patient says he is feeling well, and feels well enough to go home. However the nurses note that he is still extremely weak, and requires a minimum to person assist to move out of bed. Today he tells me that he previously saw Dr. Ahn, perhaps 1-2 years ago. We are sending for old records. We are still trying to figure out why the patient is not on anti-coagulation therapy for his A. fib and aortic stenosis, and also not on any rate control drugs. Echo showed biatrial enlargement but normal LV function, with severe aortic stenosis. Otherwise, today he says his right leg is feeling quite a bit better. He has occasional chills, but otherwise denies fever, chest pain or palpitations, shortness of breath, GI or issues. - Constitutional Vitals: Vital Signs Temp Pulse Resp BP Pulse Ox 98.4 F 112 H 16 135/101 95 01/05/17 06:48 01/04/17 18:27 01/05/17 06:50 01/05/17 06:50 01/05/17 06:50 Period Temp Pulse Resp BP Sys/Mohr Pulse Ox Last 24 Hr 98.2 F-100.2 F 112-114 16-24 119-164/75-117 95-100 Intake and Output 01/04/17 01/05/17 01/05/17 21:59 05:59 13:59 Intake Total 400 / 400 400 / 400 340 / 340 Output Total 1150 / 1150 800 / 800 Balance -750 / -750 -400 / -400 340 / 340 Weight 268 lb 12.8 oz Intake & Output: Intake & Output 01/04/17 01/05/17 01/05/17 21:59 05:59 13:59 Intake Total 400 / 400 400 / 400 340 / 340 Output Total 1150 / 1150 800 / 800 Balance -750 / -750 -400 / -400 340 / 340 Weight 268 lb 12.8 oz Intake: IV 100 / 100 100 / 100 100 / 100 Zosyn 3.375 gm In Dextrose 5% 100 / 100 100 / 100 100 / 100 in Water 100 ml @ 100 mls/hr IV Q6H [facility] Rx#:[id number] Oral 300 / 300 300 / 300 240 / 240 Output: Urine Catheter Amount 1150 / 1150 800 / 800 Other: Meal Breakfast Percent of Meal Consumed 100% Feeding Ability Assist with Tray Set Up # Bowel Movements 1 The patient is sitting up in a chair, in no acute distress. He seems in good spirits. Neck is supple without obvious JVD. Cardiac exam shows an irregularly irregular rhythm. 2/6 systolic ejection murmur noted. Lungs have a few crackles at the bases, but are otherwise clear. Abdomen is obese, but soft without significant tenderness. Left sided colostomy bag has liquid brown stool. Extremities: Show about 2+ pitting edema of both lower legs. The right leg is less red and warm to the touch, with the erythema extending up onto the inner thigh. Exam overall is improved. Neurologic exam: The patient appears to be quite forgetful about his medical history, but otherwise exam is grossly nonfocal today. Medical - PN: Obj Da - Labs CBC & Chem 7: 01/05/17 03:50 01/05/17 03:50 Labs: Abnormal Lab Results 01/05/17 01/05/17 01/04/17 03:50 03:50 04:00 RBC 3.27 L Hgb 11.1 L Hct 33.0 L MCV 100.9 H RDW 16.0 H Plt Count 110 L Gran % Lymph % (Auto) Lymph # (Auto) 1.4 L Platelet Estimate RBC Morphology Macrocytosis ESR PT BUN 48 H 44 H Creatinine 2.3 H 2.2 H Glucose Calcium 8.5 L Troponin T NT-Pro-B Natriuret Pep 01/03/17 01/03/17 01/03/17 07:45 07:45 07:45 RBC 2.95 L Hgb 9.9 L Hct 29.7 L MCV 100.5 H RDW 15.9 H Plt Count 82 L Gran % Lymph % (Auto) Lymph # (Auto) Platelet Estimate Decreased A RBC Morphology Abnorm A Macrocytosis 1+ A ESR PT BUN 50 H Creatinine 2.3 H Glucose Calcium 8.5 L Troponin T 0.05 H* NT-Pro-B Natriuret Pep 01/02/17 01/02/17 01/02/17 23:45 23:45 23:45 RBC Hgb Hct MCV RDW Plt Count Gran % Lymph % (Auto) Lymph # (Auto) Platelet Estimate RBC Morphology Macrocytosis ESR PT 14.8 H BUN 50 H Creatinine 2.4 H Glucose 116 H Calcium Troponin T 0.04 H* NT-Pro-B Natriuret Pep 4037.0 H 01/02/17 23:45 RBC 3.27 L Hgb 11.1 L Hct 32.7 L MCV RDW 16.1 H Plt Count 102 L Gran % 80.0 H Lymph % (Auto) 14.6 L Lymph # (Auto) 0.8 L Platelet Estimate RBC Morphology Macrocytosis ESR 43 H PT BUN Creatinine Glucose Calcium Troponin T NT-Pro-B Natriuret Pep January 04: Echocardiogram: Left ventricle shows moderate concentric LVH, with ejection fraction 65-70%. Left atrium is moderate to severely dilated, and right atrium is mildly dilated. Moderate mitral calcification. Moderate pulmonary hypertension. Severe valvular aortic stenosis. January 03: EKG: Shows atrial fibrillation at a rate of 116, with early right bundle branch block. There are no obvious acute ischemic changes. Lactic acid is normal at 1.3 Chest x-ray: Shows mild pulmonary vascular congestion. Urinalysis is essentially normal. Nasal MRSA screen is negative. Blood cultures are negative so far. Meds: Medications Acetaminophen (Tylenol) 650 mg PO Q6HP PRN PRN Reason: PAIN/FEVER > 101 Last Admin: 01/04/17 20:23 Dose: 650 mg Hydrocodone Bitart/Acetaminophen ([place] 5/325mg) 1 tab PO Q4HP PRN PRN Reason: PAIN LEVEL 3-6 Last Admin: 01/05/17 07:02 Dose: 1 tab Albuterol Sulfate (Ventolin) 2.5 mg NEB Q4HRT PRN PRN Reason: Shortness Of Breath Or Wheezing Allopurinol (Zyloprim) 200 mg PO DAILY [facility] Last Admin: 01/05/17 08:50 Dose: 200 mg Dextrose (Dextrose 50%) 0 ml IV UD PRN PRN Reason: Hypoglycemia Diagnostic Test (Pha) (Accu-Chek) 1 each FS ACHS [facility] Last Admin: 01/05/17 07:06 Dose: 1 each Docusate Sodium (Colace) 100 mg PO BID PRN PRN Reason: Constipation Last Admin: 01/05/17 07:39 Dose: 100 mg Furosemide (Lasix) 40 mg PO DAILY [facility] Last Admin: 01/05/17 08:53 Dose: 40 mg Glucose (Insta-Glucose) 15 gm PO PRN PRN PRN Reason: Hypoglycemia Heparin Sodium (Porcine) (Heparin) 5,000 unit SQ Q12 [facility] Last Admin: 01/05/17 08:54 Dose: 5,000 unit Hydralazine HCl (Apresoline) 25 mg PO BID [facility] Last Admin: 01/05/17 08:53 Dose: 25 mg Piperacillin Sod/Tazobactam (Sod 3.375 gm/ Dextrose) 100 mls @ 100 mls/hr IV Q6H [facility] Last Infusion: 01/05/17 06:00 Dose: Infused Insulin Human Lispro (Humalog) 0 unit SQ ACHS [facility] PRN Reason: Protocol Last Admin: 01/05/17 07:06 Dose: Not Given Levothyroxine Sodium (Synthroid) 25 mcg PO ACB [facility] Last Admin: 01/05/17 07:39 Dose: 25 mcg Metoprolol Tartrate (Lopressor) 50 mg PO BID [facility] Last Admin: 01/05/17 08:52 Dose: 50 mg Naloxone HCl (Narcan) 0.1 mg IV Q2MIN PRN PRN Reason: Opiate Reversal Ondansetron HCl (Zofran) 4 mg IV Q4HP PRN PRN Reason: Nausea And Vomiting Oxybutynin Chloride (Ditropan Xl) 10 mg PO DAILY [facility] Last Admin: 01/05/17 08:54 Dose: 10 mg Simvastatin (Zocor) 40 mg PO HS [facility] Last Admin: 01/04/17 20:26 Dose: 40 mg Medical - PN: A/P - Time Spent With Patient Total time spent is greater than 50% in coordination of care (as documented) at patient's floor/unit and/or counseling patient: 25 - 35 minutes (1) Cellulitis of right foot Status: Acute Current Visit: Yes (2) Atrial fibrillation with RVR Status: Acute Current Visit: Yes (3) Elevated troponin Status: Acute Current Visit: Yes (4) CHF (congestive heart failure) Status: Acute Current Visit: Yes (5) Anemia Status: Acute Current Visit: Yes (6) Thrombocytopenia Status: Acute Current Visit: Yes - Narrative A/P Narrative: #1. Infectious disease. SIRS syndrome. Patient presents with cellulitis of his right foot and leg, associated with a diabetic foot ulcer. He appeared to have possible early sepsis , but is much improved . -Right lower extremity erythema is much improved today, as is his pain. -Blood cultures are pending. - of wound care is now following. Continue empiric coverage with Zosyn and vancomycin. 2. Cardiac. -Patient presented with what we thought was new onset atrial fibrillation with rapid ventricular response. However, old records indicate he has had atrial fibrillation in the past, although he cannot recall this. His does recall a previous diagnosis of this. It is not clear why he is not on anticoagulation therapy or rate control drugs. His really cannot recall. -He now thinks he is to see Dr. Ahn. We have sent for records, to try to clarify management issues. Clonidine was held and metoprolol started. He seems to be tolerating this so far. Heart rate and blood pressure are improving. Continue to monitor on telemetry. If atrial fibrillation persists , we may need to discuss anticoagulation therapy. -Troponin and BNP are mildly elevated, but this may be a false positive in the setting of his chronic kidney disease. Echocardiogram shows normal LV function, but dilated lateral atria probably explains his atrial fibrillation. He has severe aortic stenosis, but does not report significant dyspnea or chest pain. I suspect he leads a very sedentary lifestyle. 3. CODE STATUS: Patient requests full code. His will act as his POA. 4. DVT prophylaxis: Subcu heparin. 5. Hematologic. Patient has mild anemia and thrombocytopenia, both of which appear chronic. Both of these issues look moderately improved today. 6. Endocrine. Type 2 diabetes. This is ranging from 97-171. glimepiride is on hold. Continue sliding scale coverage. Sulfonylureas to increase his risk for hypoglycemia, especially in the setting of renal disease. I think this should be discontinued. -Hypothyroidism. Continue levothyroxine. 7. chronic kidney disease, although the patient does not seem fully aware of this. creatinine is apparently near 2.1. He is near this at this time. He should follow-up with Dr. Herrmann, but apparently does not like to pay the co- pay to do this. Continue Lasix, hydralazine, metoprolol for hypertension.. Am not sure if hydralazine is the best choice for his blood pressure, given his severe aortic stenosis. Hopefully we can get him to follow-up with both cardiology and nephrology at some point. Medical - PN: Qual - Stroke Symptom Onset Unknown: No - VTE Deep Vein Thrombosis/Pulmonary Embolism Present on Admission: No
[2017-01-05] MEDS: SIMVASTATIN 40 MG TABLET PO SCH (19:24)
[2017-01-06] MEDS: PIPERACILLIN SODIUM/TAZOBACTAM 3.375 GM in DEXTROSE 5% IN WATER 100 ML IV SCH ×5 (00:16→23:30)
[2017-01-06 05:13] LABS: ALT/SGPT 16 U/l (0-40); Albumin 3.5 gm/dL (3.2-5.2); Alkaline Phosphatase 122 U/L (39-117); Bilirubin,Direct < 0.2 mg/dL (0.0-0.3); Blood Urea Nitrogen 52 mg/dl (8-23); Gamma Glutamyl Transpeptidase 69 U/L (8-61); Magnesium 2.2 mg/dL (1.6-2.5); Uric Acid 4.6 mg/dL (2.5-8.0)
[2017-01-06 05:14] LABS: Basophils # (Auto) 0 K/mcL (0.0-0.3); Basophils % (Auto) 0.5 % (0.0-2.0); Eosinophils # (Auto) 0.2 K/mcL (0.0-0.7); Eosinophils % (Auto) 3.8 % (0.0-7.0); Lymphocytes # (Auto) 1.4 K/mcL (1.5-4.8); Lymphocytes % (Auto) 24.9 % (15.5-49.0); Mean Cell Volume 100.9 fL (80.0-100.0); Mean Corpuscular HGB Conc 32.9 g/dL (31.0-36.0); Mean Corpuscular Hemoglobin 33.2 pg (26.0-34.0); Monocytes # (Auto) 0.6 K/mcL (0.1-0.9); Monocytes % (Auto) 10.8 % (1.0-12.0); Platelet Count 145 K/mcL (140-440); RBC 3.44 M/mcL (4.50-5.90); Red Cell Distribution Width 15.6 % (11.5-14.5)
[2017-01-06] MEDS ORDERED: MAGNESIUM HYDROXIDE 30 ML ORAL.SUSP PO PRN (06:42)
[2017-01-06] MEDS: LEVOTHYROXINE 25 MCG TABLET PO SCH (07:56)
[2017-01-06] MEDS: INSULIN LISPRO 1 UNIT/0.01 ML UNIT SQ SCH ×4 (07:56→21:18)
[2017-01-06] MEDS: FUROSEMIDE 40 MG TABLET PO SCH (09:29)
[2017-01-06] MEDS: hydrALAZINE 25 MG TABLET PO SCH ×2 (09:29→21:18)
[2017-01-06] MEDS: OXYBUTYNIN CHLORIDE 5 MG TAB.XL.24H PO SCH (09:30)
[2017-01-06] MEDS: METOPROLOL TARTRATE 25 MG TABLET PO SCH ×3 (09:31→21:18)
[2017-01-06] MEDS: HEPARIN 5,000 UNIT/ML VIAL SQ SCH ×2 (09:31→21:18)
[2017-01-06] MEDS: ALLOPURINOL 100 MG TABLET PO SCH (09:31)
--- NOTE | 2017-01-06 11:58 | Internal Med Progress Note ---
Medical - PN: Subj Patient information: Note initiated : 01/06/17 at 11:57 am Service Date, if different from initiated Date: [] Patient: Kevin Albrecht 81 y/o M admitted on 01/03/17 for Cellulitis of Right Foot, AFib w/ RVR. Chief Complaint: [] Interval history: January 03, 2017: History of present illness: Mr. Albrecht is a 81 year old man who was in his normal state of health until about 2 days ago when he noticed that his right foot was getting red and swollen. Yesterday he started having shaking chills and noticed worsening of his right foot pain. He presented to the emergency room where he was found to have high fever, and significant cellulitis, as well as acute renal dysfunction. He was also found to have atrial fibrillation with rapid ventricular response in the ER. This responded to IV fluids and IV diltiazem. However, he did drop his blood pressure after diltiazem. He is now admitted for further evaluation and treatment. Otherwise, patient denies recent headaches or dizziness, new eye or ear symptoms. He says he has had a little bit of a cough and a sore throat, but no shortness of breath. He denies chest pain or palpitations. He says he has had some abdominal discomfort and nausea and particularly lower abdominal discomfort lately around the site of his colostomy. He thinks he is having less stool in his colostomy bag than is normal for him. He denies dysuria. January 04: Today, the patient says he is feeling quite a bit better. He feels that he slept quite well because he had his CPAP machine. He notes that he is having increased stool output in his colostomy, which relieves his concerns about constipation. He says he does feel a bit chilled today, but denies fever, chest pain or shortness of breath or palpitations. He denies abdominal pain, nausea or vomiting, dysuria. We did obtain records from Dr. Herrmann, they do show that the patient has chronic kidney disease. His baseline creatinine appears to run around 2.1, as of last year. Patient's notes that the patient does not follow-up with Dr. Herrmann very often because he does not like to pay the high co-pay. January 05: Today, the patient says he is feeling well, and feels well enough to go home. However the nurses note that he is still extremely weak, and requires a minimum to person assist to move out of bed. Today he tells me that he previously saw Dr. Ahn, perhaps 1-2 years ago. We are sending for old records. We are still trying to figure out why the patient is not on anti-coagulation therapy for his A. fib and aortic stenosis, and also not on any rate control drugs. Echo showed biatrial enlargement but normal LV function, with severe aortic stenosis. Otherwise, today he says his right leg is feeling quite a bit better. He has occasional chills, but otherwise denies fever, chest pain or palpitations, shortness of breath, GI or issues. January 06: Today, the patient says he is feeling quite well. Staff notes he is making some progress with strengthening and transferring. Glucoses are ranging from 90 -170. His stools in his colostomy have been rather hard, so he was given milk of magnesia and prune juice this morning. Staff reports he was quite confused overnight, and has a TENS unit tendency to be confused at night, although his says he really does not do this at home. He is alert and oriented this morning. Otherwise, he denies fever or chills, chest pain or palpitations, shortness of breath, nausea or vomiting, diarrhea, dysuria. Torres catheter remains in place. He says his right leg is feeling quite a bit better. He thinks it is always a little bit more swollen than the left side, but is not certain. - Constitutional Vitals: Vital Signs Temp Pulse Resp BP Pulse Ox 98.1 F 121 H 20 161/104 100 01/06/17 04:12 01/05/17 20:00 01/06/17 04:12 01/06/17 04:12 01/06/17 04:12 Period Temp Pulse Resp BP Sys/Mohr Pulse Ox Last 24 Hr 98.1 F-98.7 F 121-122 16-20 100-175/53-121 88-100 Intake and Output 01/05/17 01/06/17 01/06/17 21:59 05:59 13:59 Intake Total 100 / 100 350 / 350 100 / 100 Output Total 1380 / 1380 1250 / 1250 Balance -1280 / -1280 -900 / -900 100 / 100 Weight 268 lb 8 oz 268 lb 8 oz Patient Weight 01/07/17 05:59 Weight 268 lb 8 oz Intake & Output: Intake & Output 01/05/17 01/06/17 01/06/17 21:59 05:59 13:59 Intake Total 100 / 100 350 / 350 100 / 100 Output Total 1380 / 1380 1250 / 1250 Balance -1280 / -1280 -900 / -900 100 / 100 Weight 268 lb 8 oz 268 lb 8 oz Intake: IV 100 / 100 100 / 100 100 / 100 Zosyn 3.375 gm In Dextrose 5% 100 / 100 100 / 100 100 / 100 in Water 100 ml @ 100 mls/hr IV Q6H RA Rx#:[id number] Oral 250 / 250 Output: Urine Catheter Amount 1350 / 1350 1250 / 1250 Stool 30 / 30 Other: # Bowel Movements 1 The patient is sitting up in a chair, in no acute distress. He seems in good spirits. Temperature is 99.2. Neck is supple without obvious JVD. Cardiac exam shows an irregularly irregular rhythm. 2/6 systolic ejection murmur noted. Lungs have scattered crackles at the bases, but are otherwise clear. Abdomen is obese, but soft without significant tenderness. Left sided colostomy bag has some liquid brown stool. Extremities: Show about 2+ pitting edema of both lower legs. The right leg is less red and warm to the touch, with the erythema extending up onto the inner thigh, overall improved. The right lower leg is definitely more swollen than the left today, and the patient is quite unsure about how long this has been going on. Neurologic exam: The patient appears to be quite forgetful about his medical history, but otherwise exam is grossly nonfocal today. Medical - PN: Obj Da - Labs CBC & Chem 7: 01/06/17 03:50 01/06/17 03:50 Labs: Abnormal Lab Results 01/06/17 01/06/17 01/05/17 03:50 03:50 03:50 RBC 3.44 L 3.27 L Hgb 11.4 L 11.1 L Hct 34.7 L 33.0 L MCV 100.9 H 100.9 H RDW 15.6 H 16.0 H Plt Count 110 L Lymph # (Auto) 1.4 L 1.4 L BUN 52 H Creatinine 2.3 H Glucose 132 H Calcium GGT 69 H Alkaline Phosphatase 122 H 01/05/17 01/04/17 03:50 04:00 RBC Hgb Hct MCV RDW Plt Count Lymph # (Auto) BUN 48 H 44 H Creatinine 2.3 H 2.2 H Glucose Calcium 8.5 L GGT Alkaline Phosphatase January 06: Lower extremity ultrasound is pending. January 04: Echocardiogram: Left ventricle shows moderate concentric LVH, with ejection fraction 65-70%. Left atrium is moderate to severely dilated, and right atrium is mildly dilated. Moderate mitral calcification. Moderate pulmonary hypertension. Severe valvular aortic stenosis. January 03: EKG: Shows atrial fibrillation at a rate of 116, with early right bundle branch block. There are no obvious acute ischemic changes. Lactic acid is normal at 1.3 Chest x-ray: Shows mild pulmonary vascular congestion. Urinalysis is essentially normal. Nasal MRSA screen is negative. Blood cultures are negative so far. Meds: Medications Acetaminophen (Tylenol) 650 mg PO Q6HP PRN PRN Reason: PAIN/FEVER > 101 Last Admin: 01/04/17 20:23 Dose: 650 mg Hydrocodone Bitart/Acetaminophen ([place] 5/325mg) 1 tab PO Q4HP PRN PRN Reason: PAIN LEVEL 3-6 Last Admin: 01/05/17 19:24 Dose: 1 tab Albuterol Sulfate (Ventolin) 2.5 mg NEB Q4HRT PRN PRN Reason: Shortness Of Breath Or Wheezing Allopurinol (Zyloprim) 200 mg PO DAILY [facility] Last Admin: 01/06/17 09:31 Dose: 200 mg Dextrose (Dextrose 50%) 0 ml IV UD PRN PRN Reason: Hypoglycemia Diagnostic Test (Pha) (Accu-Chek) 1 each FS ACHS [facility] Last Admin: 01/06/17 07:56 Dose: 1 each Docusate Sodium (Colace) 100 mg PO BID PRN PRN Reason: Constipation Last Admin: 01/05/17 20:51 Dose: 100 mg Furosemide (Lasix) 40 mg PO DAILY [facility] Last Admin: 01/06/17 09:29 Dose: 40 mg Glucose (Insta-Glucose) 15 gm PO PRN PRN PRN Reason: Hypoglycemia Heparin Sodium (Porcine) (Heparin) 5,000 unit SQ Q12 [facility] Last Admin: 01/06/17 09:31 Dose: 5,000 unit Hydralazine HCl (Apresoline) 25 mg PO BID [facility] Last Admin: 01/06/17 09:29 Dose: 25 mg Piperacillin Sod/Tazobactam (Sod 3.375 gm/ Dextrose) 100 mls @ 100 mls/hr IV Q6H [facility] Last Infusion: 01/06/17 06:27 Dose: Infused Insulin Human Lispro (Humalog) 0 unit SQ ACHS [facility] PRN Reason: Protocol Last Admin: 01/06/17 07:56 Dose: Not Given Levothyroxine Sodium (Synthroid) 25 mcg PO ACB [facility] Last Admin: 01/06/17 07:56 Dose: 25 mcg Magnesium Hydroxide (Milk Of Magnesia) 30 ml PO BIDP PRN PRN Reason: Constipation Metoprolol Tartrate (Lopressor) 75 mg PO BID [facility] Last Admin: 01/06/17 09:31 Dose: 75 mg Naloxone HCl (Narcan) 0.1 mg IV Q2MIN PRN PRN Reason: Opiate Reversal Ondansetron HCl (Zofran) 4 mg IV Q4HP PRN PRN Reason: Nausea And Vomiting Oxybutynin Chloride (Ditropan Xl) 10 mg PO DAILY [facility] Last Admin: 01/06/17 09:30 Dose: 10 mg Simvastatin (Zocor) 40 mg PO HS [facility] Last Admin: 01/05/17 19:24 Dose: 40 mg Medical - PN: A/P - Time Spent With Patient Total time spent is greater than 50% in coordination of care (as documented) at patient's floor/unit and/or counseling patient: 25 - 35 minutes (1) Cellulitis of right foot Status: Acute Current Visit: Yes (2) Atrial fibrillation with RVR Status: Acute Current Visit: Yes (3) Elevated troponin Status: Acute Current Visit: Yes (4) CHF (congestive heart failure) Status: Acute Current Visit: Yes (5) Anemia Status: Acute Current Visit: Yes (6) Thrombocytopenia Status: Acute Current Visit: Yes - Narrative A/P Narrative: #1. Infectious disease. SIRS syndrome. Patient presents with cellulitis of his right foot and leg, associated with a diabetic foot ulcer. He appeared to have possible early sepsis , but is much improved . -Right lower extremity erythema is much improved today, as is his pain. -Blood cultures are pending. - of wound care is now following. Continue empiric coverage with Zosyn and vancomycin. -Right lower leg is more swollen than the left, so venous Doppler was ordered. This is pending. 2. Cardiac. -Patient presented with what we thought was new onset atrial fibrillation with rapid ventricular response. However, old records indicate he has had atrial fibrillation in the past, although he cannot recall this. His does recall a previous diagnosis of this. It is not clear why he is not on anticoagulation therapy or rate control drugs. His really cannot recall. He now thinks he is to see Dr. Ahn. We have sent for records, to try to clarify management issues. Clonidine was held and metoprolol started. He seems to be tolerating this so far. Heart rate and blood pressure are improving. We are titrating the metoprolol up as tolerated. Continue to monitor on telemetry. If atrial fibrillation persists , we may need to discuss anticoagulation therapy. He should be anticoagulated for stroke prophylaxis, but he is also probably high risk for falls. -Troponin and BNP were mildly elevated, but this may be a false positive in the setting of his chronic kidney disease. Echocardiogram shows normal LV function, but dilated lateral atria probably explains his atrial fibrillation. He has severe aortic stenosis, but does not report significant dyspnea or chest pain. I suspect he leads a very sedentary lifestyle. -He will need follow-up with cardiology at some point. 3. CODE STATUS: Patient requests full code. His will act as his POA. 4. DVT prophylaxis: Subcu heparin. 5. Hematologic. Patient has mild anemia and thrombocytopenia, both of which appear chronic. Both of these issues look moderately improved today. 6. Endocrine. Type 2 diabetes. This is ranging from 132- 200. glimepiride is on hold. Continue sliding scale coverage. Sulfonylureas to increase his risk for hypoglycemia, especially in the setting of renal disease. I think this should be discontinued. He is not a candidate for metformin regarding renal function. We could consider a trial of low-dose Lantus. -Hypothyroidism. Continue levothyroxine. 7. chronic kidney disease, although the patient does not seem fully aware of this. creatinine is apparently near 2.1. He is near this at this time. He should follow-up with Dr. Herrmann, but apparently does not like to pay the co- pay to do this. Continue Lasix, hydralazine, metoprolol for hypertension.. Am not sure if hydralazine is the best choice for his blood pressure, given his severe aortic stenosis. Hopefully we can get him to follow-up with both cardiology and nephrology at some point. Medical - PN: Qual - Stroke Symptom Onset Unknown: No - VTE Deep Vein Thrombosis/Pulmonary Embolism Present on Admission: No
--- NOTE | 2017-01-06 13:51 | General Surgery Progress Note ---
Subjective Narrative: Note initiated : 01/06/17 at 1:48 pm Service Date, if different from initiated Date: [] Patient: Kevin Albrecht 81 y/o M admitted on 01/03/17 for Cellulitis of Right Foot, AFib w/ RVR. Chief Complaint: []I saw patient in ICU 120/C this afternoon along with [place] RN. He is resting comfortably and asymptomatic from wound care point of view. Objective Temp Pulse Resp BP Pulse Ox 99.2 F H 121 H 16 133/83 98 01/06/17 12:08 01/05/17 20:00 01/06/17 12:08 01/06/17 12:08 01/06/17 12:08 - Additional Data Intake & Output - Last 24 hours: Intake & Output 01/04/17 01/05/17 01/06/17 01/07/17 05:59 05:59 05:59 05:59 Intake Total 1284 / 1284 1480 / 1480 1430 / 1430 100 / 100 Output Total 1974 / 1974 1950 / 1950 2630 / 2630 Balance -691 / -691 -470 / -470 -1200 / -1200 100 / 100 Weight 265 lb 9.6 oz 268 lb 12.8 oz 268 lb 8 oz 268 lb 8 oz 01/06/17 13:50 AVSS. Hemodynamically stable. No changes in clinical examination. O/E. Epidermal abrasion and ulcer over right lateral malleolus have epithelialized and healed over, - Labs 01/06/17 03:50 01/06/17 03:50 Diabetes panel 01/06/17 Range/Units 03:50 Sodium 141 (133-145) mmol/L Potassium 4.3 (3.3-5.1) mmol/L Chloride 101 (96-108) mmol/L Carbon Dioxide 26 (22-30) mmol/L BUN 52 H (8-23) mg/dl Creatinine 2.3 H (0.7-1.2) mg/dl Glucose 132 H (70-105) mg/dL Calcium 8.8 (8.6-10.4) mg/dl AST 28 (0-37) U/l ALT 16 (0-40) U/l Alkaline Phosphatase 122 H (39-117) U/L Total Protein 7.0 (5.9-8.4) gm/dL Albumin 3.5 (3.2-5.2) gm/dL Triglycerides 84 (<150) mg/dl Calcium panel 01/06/17 Range/Units 03:50 Calcium 8.8 (8.6-10.4) mg/dl Phosphorus 4.1 (2.7-4.5) mg/dL Albumin 3.5 (3.2-5.2) gm/dL Pituitary panel 01/06/17 Range/Units 03:50 Sodium 141 (133-145) mmol/L Potassium 4.3 (3.3-5.1) mmol/L Chloride 101 (96-108) mmol/L Carbon Dioxide 26 (22-30) mmol/L BUN 52 H (8-23) mg/dl Creatinine 2.3 H (0.7-1.2) mg/dl Glucose 132 H (70-105) mg/dL Calcium 8.8 (8.6-10.4) mg/dl Adrenal panel 01/06/17 Range/Units 03:50 Sodium 141 (133-145) mmol/L Potassium 4.3 (3.3-5.1) mmol/L Chloride 101 (96-108) mmol/L Carbon Dioxide 26 (22-30) mmol/L BUN 52 H (8-23) mg/dl Creatinine 2.3 H (0.7-1.2) mg/dl Glucose 132 H (70-105) mg/dL Calcium 8.8 (8.6-10.4) mg/dl Total Bilirubin 0.6 (0.0-1.0) mg/dL AST 28 (0-37) U/l ALT 16 (0-40) U/l Alkaline Phosphatase 122 H (39-117) U/L Total Protein 7.0 (5.9-8.4) gm/dL Albumin 3.5 (3.2-5.2) gm/dL Assessment and Plan (1) Dermatitis associated with moisture Problem details: Conservative management. Skin , Nail and Hair hygiene discussed with nursing staff. Status: Chronic Current Visit: Yes - Narrative A/P Narrative: Assessment: Epidermal abrasion and ulcer over right lateral malleolus has healed over. NO debridement necessary. Plan: Conservative treatment. Continue current schedule of cleansing both legs with chlorhexidine prep daily and application of skin moisturizers. Cover the pressure point over right lateral malleolus with Mepilex foam bordered dressing. May change q weekly or sooner as needed. Upon discharge, follow up at wound center in ONE week. - Time Spent With Patient Total time spent is greater than 50% in coordination of care (as documented) at patient's floor/unit and/or counseling patient: less than 15 minutes
[2017-01-06] MEDS: 0.9 % SODIUM CHLORIDE 10 ML SYRINGE IV SCH ×2 (17:38→21:19)
--- NOTE | 2017-01-06 19:39 | Ultrasound Report ---
CLINICAL INFORMATION: Right lower extremity swelling COMPARISON: None. FINDINGS: The entire deep venous system including the common femoral, superficial femoral, popliteal and paired trifurcation calf veins are easily compressible and show normal venous blood flow on color and spectral Doppler. No evidence of thrombus IMPRESSION: Negative exam - no evidence of deep vein thrombosis. Interpreted and Authenticated by: Gene Capellan 01/06/17
[2017-01-06] MEDS: SIMVASTATIN 40 MG TABLET PO SCH (21:18)
[2017-01-07] MEDS: PIPERACILLIN SODIUM/TAZOBACTAM 3.375 GM in DEXTROSE 5% IN WATER 100 ML IV SCH ×4 (05:14→23:38)
[2017-01-07] MEDS: 0.9 % SODIUM CHLORIDE 10 ML SYRINGE IV SCH ×3 (05:14→21:19)
[2017-01-07 06:30] LABS: Basophils # (Auto) 0 K/mcL (0.0-0.3); Basophils % (Auto) 0.5 % (0.0-2.0); Eosinophils # (Auto) 0.3 K/mcL (0.0-0.7); Eosinophils % (Auto) 4.4 % (0.0-7.0); Granulocytes % (Auto) 54.3 % (38.0-78.0); Lymphocytes # (Auto) 2.1 K/mcL (1.5-4.8); Lymphocytes % (Auto) 29.3 % (15.5-49.0); Mean Cell Volume 100.5 fL (80.0-100.0); Mean Corpuscular HGB Conc 33.3 g/dL (31.0-36.0); Mean Corpuscular Hemoglobin 33.4 pg (26.0-34.0); Monocytes # (Auto) 0.8 K/mcL (0.1-0.9); Monocytes % (Auto) 11.5 % (1.0-12.0); Platelet Count 173 K/mcL (140-440); RBC 3.53 M/mcL (4.50-5.90); Red Cell Distribution Width 15.6 % (11.5-14.5)
[2017-01-07 06:37] LABS: ALT/SGPT 16 U/l (0-40); Albumin 3.3 gm/dL (3.2-5.2); Albumin/Globulin Ratio 0.9 (1.0-2.3); Alkaline Phosphatase 138 U/L (39-117); Bilirubin,Direct < 0.2 mg/dL (0.0-0.3); Blood Urea Nitrogen 45 mg/dl (8-23); Gamma Glutamyl Transpeptidase 77 U/L (8-61); Magnesium 2.1 mg/dL (1.6-2.5); Uric Acid 4.7 mg/dL (2.5-8.0)
[2017-01-07] MEDS: INSULIN LISPRO 1 UNIT/0.01 ML UNIT SQ SCH ×4 (08:02→21:19)
[2017-01-07] MEDS: LEVOTHYROXINE 25 MCG TABLET PO SCH (08:02)
[2017-01-07] MEDS: INSULIN GLARGINE, HUMAN 1 UNIT/0.01 ML SQ SCH (08:55)
[2017-01-07] MEDS: HEPARIN 5,000 UNIT/ML VIAL SQ SCH ×2 (08:55→21:19)
[2017-01-07] MEDS: ALLOPURINOL 100 MG TABLET PO SCH (08:55)
[2017-01-07] MEDS: hydrALAZINE 25 MG TABLET PO SCH ×3 (08:56→21:12)
[2017-01-07] MEDS: FUROSEMIDE 40 MG TABLET PO SCH (08:56)
[2017-01-07] MEDS: OXYBUTYNIN CHLORIDE 5 MG TAB.XL.24H PO SCH (08:56)
[2017-01-07] MEDS: METOPROLOL TARTRATE 25 MG TABLET PO SCH ×3 (08:56→21:13)
--- NOTE | 2017-01-07 11:32 | Internal Med Progress Note ---
Medical - PN: Subj Patient information: Note initiated : 01/07/17 at 11:32 am Service Date, if different from initiated Date: [] Patient: Kevin Albrecht 81 y/o M admitted on 01/03/17 for Cellulitis of Right Foot, AFib w/ RVR. Chief Complaint: [] Interval history: January 03, 2017: History of present illness: Mr. Albrecht is a 81 year old man who was in his normal state of health until about 2 days ago when he noticed that his right foot was getting red and swollen. Yesterday he started having shaking chills and noticed worsening of his right foot pain. He presented to the emergency room where he was found to have high fever, and significant cellulitis, as well as acute renal dysfunction. He was also found to have atrial fibrillation with rapid ventricular response in the ER. This responded to IV fluids and IV diltiazem. However, he did drop his blood pressure after diltiazem. He is now admitted for further evaluation and treatment. Otherwise, patient denies recent headaches or dizziness, new eye or ear symptoms. He says he has had a little bit of a cough and a sore throat, but no shortness of breath. He denies chest pain or palpitations. He says he has had some abdominal discomfort and nausea and particularly lower abdominal discomfort lately around the site of his colostomy. He thinks he is having less stool in his colostomy bag than is normal for him. He denies dysuria. January 04: Today, the patient says he is feeling quite a bit better. He feels that he slept quite well because he had his CPAP machine. He notes that he is having increased stool output in his colostomy, which relieves his concerns about constipation. He says he does feel a bit chilled today, but denies fever, chest pain or shortness of breath or palpitations. He denies abdominal pain, nausea or vomiting, dysuria. We did obtain records from Dr. Herrmann, they do show that the patient has chronic kidney disease. His baseline creatinine appears to run around 2.1, as of last year. Patient's notes that the patient does not follow-up with Dr. Herrmann very often because he does not like to pay the high co-pay. January 05: Today, the patient says he is feeling well, and feels well enough to go home. However the nurses note that he is still extremely weak, and requires a minimum to person assist to move out of bed. Today he tells me that he previously saw Dr. Ahn, perhaps 1-2 years ago. We are sending for old records. We are still trying to figure out why the patient is not on anti-coagulation therapy for his A. fib and aortic stenosis, and also not on any rate control drugs. Echo showed biatrial enlargement but normal LV function, with severe aortic stenosis. Otherwise, today he says his right leg is feeling quite a bit better. He has occasional chills, but otherwise denies fever, chest pain or palpitations, shortness of breath, GI or issues. January 06: Today, the patient says he is feeling quite well. Staff notes he is making some progress with strengthening and transferring. Glucoses are ranging from 90 -170. His stools in his colostomy have been rather hard, so he was given milk of magnesia and prune juice this morning. Staff reports he was quite confused overnight, and has a TENS unit tendency to be confused at night, although his says he really does not do this at home. He is alert and oriented this morning. Otherwise, he denies fever or chills, chest pain or palpitations, shortness of breath, nausea or vomiting, diarrhea, dysuria. Torres catheter remains in place. He says his right leg is feeling quite a bit better. He thinks it is always a little bit more swollen than the left side, but is not certain. January 07: The patient continues to have mild sundowning and hallucinations at night. He had a very restless night and did not sleep well. This morning he is alert, and says he recalls people telling him that he was having hallucinations, but does not recall the hallucinations themselves. He does not think that he has this problem at home. Otherwise, he denies fever or chills, chest pain or palpitations, shortness of breath, abdominal pain, nausea or vomiting, diarrhea. Torres catheter is still in place, but removal is planned. We have not been able to ascertain why patient is not on anticoagulation for his A. fib and aortic stenosis. I will plan on starting that today. - Constitutional Vitals: Vital Signs Temp Pulse Resp BP Pulse Ox 99.0 F H 107 H 18 127/94 100 01/07/17 08:23 01/06/17 20:00 01/07/17 08:23 01/07/17 08:23 01/07/17 08:23 Period Temp Pulse Resp BP Sys/Mohr Pulse Ox Last 24 Hr 97.8 F-99.2 F 104-107 16-20 123-169/83-120 97-100 Intake and Output 01/06/17 01/07/17 01/07/17 21:59 05:59 13:59 Intake Total 400 / 400 300 / 300 100 / 100 Output Total 1950 / 1950 1500 / 1500 Balance -1550 / -1550 -1200 / -1200 100 / 100 Weight 264 lb 4.8 oz Intake & Output: Intake & Output 01/06/17 01/07/17 01/07/17 21:59 05:59 13:59 Intake Total 400 / 400 300 / 300 100 / 100 Output Total 1950 / 1950 1500 / 1500 Balance -1550 / -1550 -1200 / -1200 100 / 100 Weight 264 lb 4.8 oz Intake: IV 100 / 100 100 / 100 100 / 100 Zosyn 3.375 gm In Dextrose 5% 100 / 100 100 / 100 100 / 100 in Water 100 ml @ 100 mls/hr IV Q6H [facility] Rx#:[id number] Oral 300 / 300 200 / 200 Output: Urine Catheter Amount 1450 / 1450 1500 / 1500 Stool 500 / 500 0 / 0 Other: Meal Dinner Percent of Meal Consumed 75% Feeding Ability Independent The patient is awake and alert, calm and cooperative. Neck is supple without obvious JVD. Cardiac exam shows an irregularly irregular rhythm. 2/6 systolic ejection murmur noted. Lungs have fairly coarse breath sounds, but are otherwise clear. Abdomen is obese, but soft without significant tenderness. Left sided colostomy bag has some liquid brown stool and gas. Extremities: Show about 1+ pitting edema of both lower legs. The right leg is less red and warm to the touch, with the erythema extending up onto the inner thigh, overall improved. Neurologic exam: The patient appears to be quite forgetful about his medical history, but otherwise exam is grossly nonfocal today. Medical - PN: Obj Da - Labs CBC & Chem 7: 01/07/17 03:45 01/07/17 03:45 Labs: Abnormal Lab Results 01/07/17 01/07/17 01/06/17 03:45 03:45 03:50 RBC 3.53 L 3.44 L Hgb 11.8 L 11.4 L Hct 35.5 L 34.7 L MCV 100.5 H 100.9 H RDW 15.6 H 15.6 H Plt Count Lymph # (Auto) 1.4 L BUN 45 H Creatinine 2.4 H Glucose 137 H GGT 77 H Alkaline Phosphatase 138 H Globulin 3.8 H Albumin/Globulin Ratio 0.9 L 01/06/17 01/05/17 01/05/17 03:50 03:50 03:50 RBC 3.27 L Hgb 11.1 L Hct 33.0 L MCV 100.9 H RDW 16.0 H Plt Count 110 L Lymph # (Auto) 1.4 L BUN 52 H 48 H Creatinine 2.3 H 2.3 H Glucose 132 H GGT 69 H Alkaline Phosphatase 122 H Globulin Albumin/Globulin Ratio January 07: Blood culture from January 03 is now showing gram-positive cocci in a single bottle. ID pending. January 06: Lower extremity ultrasound shows no evidence of DVT. January 04: Echocardiogram: Left ventricle shows moderate concentric LVH, with ejection fraction 65-70%. Left atrium is moderate to severely dilated, and right atrium is mildly dilated. Moderate mitral calcification. Moderate pulmonary hypertension. Severe valvular aortic stenosis. January 03: EKG: Shows atrial fibrillation at a rate of 116, with early right bundle branch block. There are no obvious acute ischemic changes. Lactic acid is normal at 1.3 Chest x-ray: Shows mild pulmonary vascular congestion. Urinalysis is essentially normal. Nasal MRSA screen is negative. Blood cultures are negative so far. Meds: Medications Acetaminophen (Tylenol) 650 mg PO Q6HP PRN PRN Reason: PAIN/FEVER > 101 Last Admin: 01/04/17 20:23 Dose: 650 mg Hydrocodone Bitart/Acetaminophen (Morrison 5/325mg) 1 tab PO Q4HP PRN PRN Reason: PAIN LEVEL 3-6 Last Admin: 01/05/17 19:24 Dose: 1 tab Albuterol Sulfate (Ventolin) 2.5 mg NEB Q4HRT PRN PRN Reason: Shortness Of Breath Or Wheezing Allopurinol (Zyloprim) 200 mg PO DAILY RA Last Admin: 01/07/17 08:55 Dose: 200 mg Dextrose (Dextrose 50%) 0 ml IV UD PRN PRN Reason: Hypoglycemia Diagnostic Test (Pha) (Accu-Chek) 1 each FS ACHS [facility] Last Admin: 01/07/17 08:01 Dose: 1 each Docusate Sodium (Colace) 100 mg PO BID PRN PRN Reason: Constipation Last Admin: 01/05/17 20:51 Dose: 100 mg Furosemide (Lasix) 40 mg PO DAILY [facility] Last Admin: 01/07/17 08:56 Dose: 40 mg Glucose (Insta-Glucose) 15 gm PO PRN PRN PRN Reason: Hypoglycemia Heparin Sodium (Porcine) (Heparin) 5,000 unit SQ Q12 [facility] Last Admin: 01/07/17 08:55 Dose: 5,000 unit Hydralazine HCl (Apresoline) 25 mg PO BID [facility] Last Admin: 01/07/17 08:56 Dose: 25 mg Piperacillin Sod/Tazobactam (Sod 3.375 gm/ Dextrose) 100 mls @ 100 mls/hr IV Q6H [facility] Last Infusion: 01/07/17 06:14 Dose: Infused Insulin Glargine (Lantus) 5 unit SQ DAILY [facility] Last Admin: 01/07/17 08:55 Dose: 5 unit Insulin Human Lispro (Humalog) 0 unit SQ ACHS [facility] PRN Reason: Protocol Last Admin: 01/07/17 08:02 Dose: Not Given Levothyroxine Sodium (Synthroid) 25 mcg PO ACB [facility] Last Admin: 01/07/17 08:02 Dose: 25 mcg Magnesium Hydroxide (Milk Of Magnesia) 30 ml PO BIDP PRN PRN Reason: Constipation Metoprolol Tartrate (Lopressor) 75 mg PO BID [facility] Last Admin: 01/07/17 08:56 Dose: 75 mg Naloxone HCl (Narcan) 0.1 mg IV Q2MIN PRN PRN Reason: Opiate Reversal Ondansetron HCl (Zofran) 4 mg IV Q4HP PRN PRN Reason: Nausea And Vomiting Oxybutynin Chloride (Ditropan Xl) 10 mg PO DAILY [facility] Last Admin: 01/07/17 08:56 Dose: 10 mg Quetiapine Fumarate (Seroquel) 25 mg PO HS RA Simvastatin (Zocor) 40 mg PO HS [facility] Last Admin: 01/06/17 21:18 Dose: 40 mg Sodium Chloride (Saline Flush) 10 ml IV Q8 [facility] Last Admin: 12/03/17 05:14 Dose: 10 ml Warfarin Sodium (Coumadin Per Pharmacy) 1 order PO DAILY@1400 [facility] Warfarin Sodium (Coumadin) 4 mg PO DAILY@1400 [facility] Medical - PN: A/P - Time Spent With Patient Total time spent is greater than 50% in coordination of care (as documented) at patient's floor/unit and/or counseling patient: 25 - 35 minutes (1) Cellulitis of right foot Status: Acute Current Visit: Yes (2) Atrial fibrillation with RVR Status: Acute Current Visit: Yes (3) Elevated troponin Status: Acute Current Visit: Yes (4) CHF (congestive heart failure) Status: Acute Current Visit: Yes (5) Anemia Status: Acute Current Visit: Yes (6) Thrombocytopenia Status: Acute Current Visit: Yes - Narrative A/P Narrative: #1. Infectious disease. SIRS syndrome. Patient presents with cellulitis of his right foot and leg, associated with a diabetic foot ulcer. He appeared to have possible early sepsis , but is much improved . -Right lower extremity erythema is much improved today, as is his pain. -Blood cultures: 1 of 4 bottles is now growing gram-positive cocci. 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 Patient is well covered for staph. - of wound care is now following. Continue empiric coverage with Zosyn and vancomycin. -Right lower leg Doppler did not show DVT. 2. Cardiac. -Patient presented with what we thought was new onset atrial fibrillation with rapid ventricular response. However, old records indicate he has had atrial fibrillation in the past, although he cannot recall this. His does recall a previous diagnosis of this. It is not clear why he is not on anticoagulation therapy or rate control drugs. His really cannot recall. He now thinks he is to see Dr. Ahn. We have sent for records, to try to clarify management issues. Clonidine was held and metoprolol started. He seems to be tolerating this so far. Heart rate and blood pressure are improving. We are titrating the metoprolol up as tolerated. Blood pressure and heart rate are well controlled at this time. Continue to monitor on telemetry. Atrial fibrillation-patient is at high risk for stroke. Coumadin will be started today, pending discussion with cardiology. I left a message with Dr. Ahn to touch base with me. -Troponin and BNP were mildly elevated, but this may be a false positive in the setting of his chronic kidney disease. Echocardiogram shows normal LV function, but dilated lateral atria probably explains his atrial fibrillation. He has severe aortic stenosis, but does not report significant dyspnea or chest pain. I suspect he leads a very sedentary lifestyle. -He will need follow-up with cardiology at some point. 3. CODE STATUS: Patient requests full code. His will act as his POA. 4. DVT prophylaxis: Subcu heparin. 5. Hematologic. Patient has mild anemia and thrombocytopenia, both of which appear chronic. Both of these issues look moderately improved today. 6. Endocrine. Type 2 diabetes. This is ranging from 120-130. glimepiride is on hold. Continue sliding scale coverage. Sulfonylureas to increase his risk for hypoglycemia, especially in the setting of renal disease. I think this should be discontinued. He is not a candidate for metformin regarding renal function. Low-dose Lantus was started. -Hypothyroidism. Continue levothyroxine. 7. chronic kidney disease, although the patient does not seem fully aware of this. creatinine is apparently near 2.1. He is near this at this time. He should follow-up with Dr. Herrmann, but apparently does not like to pay the co- pay to do this. Continue Lasix, hydralazine, metoprolol for hypertension.. Am not sure if hydralazine is the best choice for his blood pressure, given his severe aortic stenosis. Hopefully we can get him to follow-up with both cardiology and nephrology at some point. #8. Psychiatric. Patient continues to have mild sundowning and hallucinations at night. We will try him on low-dose Seroquel at bedtime to see if this helps him get a better nights rest. Medical - PN: Qual - Stroke Symptom Onset Unknown: No - VTE Deep Vein Thrombosis/Pulmonary Embolism Present on Admission: No
[2017-01-07] MEDS ORDERED: WARFARIN 4 MG TABLET PO SCH (14:00)
[2017-01-07] MEDS: QUEtiapine 25 MG TABLET PO SCH ×2 (18:39→21:13)
[2017-01-07] MEDS: SIMVASTATIN 40 MG TABLET PO SCH ×2 (18:39→21:13)
[2017-01-07] MEDS: DOCUSATE SODIUM 100 MG CAPSULE PO PRN (18:43)
[2017-01-08] MEDS: PIPERACILLIN SODIUM/TAZOBACTAM 3.375 GM in DEXTROSE 5% IN WATER 100 ML IV SCH ×2 (04:57→11:56)
[2017-01-08 04:59] LABS: Basophils # (Auto) 0 K/mcL (0.0-0.3); Basophils % (Auto) 0.5 % (0.0-2.0); Eosinophils # (Auto) 0.2 K/mcL (0.0-0.7); Eosinophils % (Auto) 4.1 % (0.0-7.0); Granulocytes % (Auto) 51.7 % (38.0-78.0); Lymphocytes # (Auto) 1.5 K/mcL (1.5-4.8); Lymphocytes % (Auto) 29.5 % (15.5-49.0); Mean Cell Volume 100.1 fL (80.0-100.0); Mean Corpuscular HGB Conc 33.2 g/dL (31.0-36.0); Mean Corpuscular Hemoglobin 33.3 pg (26.0-34.0); Monocytes # (Auto) 0.7 K/mcL (0.1-0.9); Monocytes % (Auto) 14.2 % (1.0-12.0); Platelet Count 141 K/mcL (140-440); RBC 3.34 M/mcL (4.50-5.90); Red Cell Distribution Width 15.6 % (11.5-14.5)
[2017-01-08] MEDS: 0.9 % SODIUM CHLORIDE 10 ML SYRINGE IV SCH (05:55)
[2017-01-08] MEDS: LEVOTHYROXINE 25 MCG TABLET PO SCH (08:03)
[2017-01-08] MEDS: INSULIN LISPRO 1 UNIT/0.01 ML UNIT SQ SCH ×2 (08:12→11:58)
[2017-01-08] MEDS: OXYBUTYNIN CHLORIDE 5 MG TAB.XL.24H PO SCH (09:00)
[2017-01-08] MEDS: ALLOPURINOL 100 MG TABLET PO SCH (09:01)
[2017-01-08] MEDS: hydrALAZINE 25 MG TABLET PO SCH (09:01)
[2017-01-08] MEDS: METOPROLOL TARTRATE 25 MG TABLET PO SCH (09:01)
[2017-01-08] MEDS: FUROSEMIDE 40 MG TABLET PO SCH (09:01)
[2017-01-08] MEDS: INSULIN GLARGINE, HUMAN 1 UNIT/0.01 ML SQ SCH (09:01)
[2017-01-08] MEDS: HEPARIN 5,000 UNIT/ML VIAL SQ SCH (09:40)
--- NOTE | 2017-01-08 11:07 | Discharge Summary ---
Medical - DS: Prov Patient information: Note initiated : 01/08/17 at 10:59 am Service Date, if different from initiated Date: [] Patient: Kevin Albrecht 81 y/o M admitted on 01/03/17 for Cellulitis of Right Foot, AFib w/ RVR. Chief Complaint: [] Date of admission: 01/03/17 11:00 Discharge date: 01/08/17 Primary care physician: Apryl Bravo Cardiology: Dr. Ahn Admitting clinician: Tiana Garcia Consults: 01/03/17 09:17 Consult to Physician [CONS] Stat Comment: Consulting Provider: Tiana Garcia Reason For Exam: Physician to Consult 01/04/17 08:24 Consult to Physician [CONS] Routine Comment: Consulting Provider: Delroy Pedraza Reason For Exam: Physician to Consult Attending physician on discharge: Tiana Garcia Medical - DS: Meds - Discharge Medications Prescriptions: Amoxicillin/Potassium Clav [Augmentin] 875 mg PO Q12H #8 tab HYDROcodone/APAP 5/325MG [Grace 5/325Mg] 1 tab PO Q4HP PRN #30 tab PRN Reason: Pain Level 3-6 Warfarin [Coumadin] 5 mg PO DAILY #1 tab Active and Home Medications: Discharge medications: Warfarin 5 mg p.o. nightly. He will need daily INRs until stable Augmentin 875 mg p.o. twice daily, 4 more days, for right leg cellulitis. Tylenol 650 mg every 6 hours as needed Albuterol nebulizer or inhaler every 4 hours as needed shortness of breath Colace 100 mg p.o. twice daily as needed Lasix 40 mg p.o. daily Heparin 5000 units subcu every 12 hours until warfarin is therapeutic Hydralazine 25 mg p.o. twice daily Grace 5/325 one every 4 hours as needed pain Lantus 5 units subcu daily Humalog sliding scale, low-dose, before meals and at bedtime Levothyroxine 25 mcg daily Milk of magnesia 30 mL p.o. twice daily as needed constipation Metoprolol succinate 75 mg p.o. twice daily, or change to 150 mg p.o. once daily (succinate form) Oxybutynin 10 mg p.o. daily Seroquel 25 mg nightly, for mild sundowning and hallucinations Simvastatin 40 mg nightly Please stop: Allopurinol, regarding renal function Glimepiride, regarding risk of hypoglycemia Clonidine, replaced by metoprolol, regarding atrial fibrillation Previous home Medications: Allopurinol [Zyloprim] 200 mg PO DAILY 05/29/15 [History Confirmed 01/03/17 Last Taken Unknown] Furosemide [Lasix] 40 mg PO DAILY 05/29/15 [History Confirmed 01/03/17 Last Taken Unknown] Glimepiride [Amaryl] 1 mg PO QAMAC 05/29/15 [History Confirmed 01/03/17 Last Taken Unknown] HYDROcodone/APAP 5/325MG [Grace 5/325Mg] 1 - 2 tab PO Q4HP PRN #20 tablet [Rx Confirmed 01/03/17 Last Taken Unknown] Levothyroxine [Synthroid] 25 mcg PO DAILY 05/29/15 [History Confirmed 01/03/17 Last Taken Unknown] Oxybutynin Chloride [Oxybutynin Chloride ER] 10 mg PO DAILY 05/29/15 [History Confirmed 01/03/17 Last Taken Unknown] Simvastatin [Zocor] 40 mg PO HS 05/29/15 [History Confirmed 01/03/17 Last Taken Unknown] cloNIDine HCL [Catapres] 0.1 mg PO BID 05/29/15 [History Confirmed 01/03/17 Last Taken Unknown] hydrALAZINE [Apresoline] 25 mg PO BID 05/29/15 [History Confirmed 01/03/17 Last Taken Unknown] Medical - DS: Hosp Hospital course: Mr. Albrecht is a 81 year old M January 03, 2017: History of present illness: Mr. Albrecht is a 81 year old man who was in his normal state of health until about 2 days ago when he noticed that his right foot was getting red and swollen. Yesterday he started having shaking chills and noticed worsening of his right foot pain. He presented to the emergency room where he was found to have high fever, and significant cellulitis, as well as acute renal dysfunction. He was also found to have atrial fibrillation with rapid ventricular response in the ER. This responded to IV fluids and IV diltiazem. However, he did drop his blood pressure after diltiazem. He is now admitted for further evaluation and treatment. Otherwise, patient denies recent headaches or dizziness, new eye or ear symptoms. He says he has had a little bit of a cough and a sore throat, but no shortness of breath. He denies chest pain or palpitations. He says he has had some abdominal discomfort and nausea and particularly lower abdominal discomfort lately around the site of his colostomy. He thinks he is having less stool in his colostomy bag than is normal for him. He denies dysuria. January 04: Today, the patient says he is feeling quite a bit better. He feels that he slept quite well because he had his CPAP machine. He notes that he is having increased stool output in his colostomy, which relieves his concerns about constipation. He says he does feel a bit chilled today, but denies fever, chest pain or shortness of breath or palpitations. He denies abdominal pain, nausea or vomiting, dysuria. We did obtain records from Dr. Herrmann, they do show that the patient has chronic kidney disease. His baseline creatinine appears to run around 2.1, as of last year. Patient's notes that the patient does not follow-up with Dr. Herrmann very often because he does not like to pay the high co-pay. January 05: Today, the patient says he is feeling well, and feels well enough to go home. However the nurses note that he is still extremely weak, and requires a minimum to person assist to move out of bed. Today he tells me that he previously saw Dr. Ahn, perhaps 1-2 years ago. We are sending for old records. We are still trying to figure out why the patient is not on anti-coagulation therapy for his A. fib and aortic stenosis, and also not on any rate control drugs. Echo showed biatrial enlargement but normal LV function, with severe aortic stenosis. Otherwise, today he says his right leg is feeling quite a bit better. He has occasional chills, but otherwise denies fever, chest pain or palpitations, shortness of breath, GI or issues. January 06: Today, the patient says he is feeling quite well. Staff notes he is making some progress with strengthening and transferring. Glucoses are ranging from 90 -170. His stools in his colostomy have been rather hard, so he was given milk of magnesia and prune juice this morning. Staff reports he was quite confused overnight, and has a TENS unit tendency to be confused at night, although his says he really does not do this at home. He is alert and oriented this morning. Otherwise, he denies fever or chills, chest pain or palpitations, shortness of breath, nausea or vomiting, diarrhea, dysuria. Torres catheter remains in place. He says his right leg is feeling quite a bit better. He thinks it is always a little bit more swollen than the left side, but is not certain. January 07: The patient continues to have mild sundowning and hallucinations at night. He had a very restless night and did not sleep well. This morning he is alert, and says he recalls people telling him that he was having hallucinations, but does not recall the hallucinations themselves. He does not think that he has this problem at home. Otherwise, he denies fever or chills, chest pain or palpitations, shortness of breath, abdominal pain, nausea or vomiting, diarrhea. Torres catheter is still in place, but removal is planned. We have not been able to ascertain why patient is not on anticoagulation for his A. fib and aortic stenosis. I will plan on starting that today. January 08: Hospital course: -This patient was admitted with chills and evidence of right lower extremity cellulitis. He was started on IV Zosyn, and leg swelling and redness improved fairly quickly. of wound care saw him, and did not feel that further investigation or procedures were warranted. Patient will be changed from IV Zosyn over to oral Augmentin for the next 4 days. -Patient presented with atrial fibrillation with rapid ventricular response. There was confusion about whether this was a chronic or an acute condition. Yesterday, Dr. Ahn said that it had never been formally diagnosed, although he had had previous atrial arrhythmias. He agreed with starting the patient on anticoagulation therapy. The patient also has severe aortic stenosis, and should follow-up with Dr. Ahn sometime in the next few weeks. -The patient has had some mild sundowning symptoms while in the ICU. It is unclear if this is a chronic underlying mild dementia,, or if this may be an ICU delirium. He did sleep better last night with low-dose Seroquel. -Patient has type 2 diabetes. It does not sound like he was monitoring at home. Here glucoses have ranged from 70-200. His oral hypoglycemic was held. He has managed with low-dose Lantus plus sliding scale Humalog with meals. I believe his Lantus dose could be titrated so that he could come off of the sliding scale, but would not reinstitute sulfonylureas given risk for hypoglycemia. Kidney function will not allow for metformin. -He does have known chronic kidney disease, and BUN and creatinine have been stable. He missed his last follow-up with Dr. Herrmann, and should plan on following up with him in the near future. Today, the patient does not really recall not being able to sleep until about 2 AM. He did sleep well after that. He has no particular complaints today. He denies pain, chest pain or palpitations, fever or chills, shortness of breath, abdominal pain, nausea or vomiting, diarrhea or constipation. On exam, he is sitting up in a chair, and is very pleasant and cooperative. Neck is supple without obvious JVD. Cardiac exam shows an irregularly irregular rhythm Lungs are clear to auscultation. Abdomen is quite obese but otherwise soft. His left-sided colostomy has a fair amount of air in it and minimal stool. Extremities continue to show about 1+ woody edema. Most of the erythema in the right lower extremity has resolved. Neurologic exam: The patient is alert and oriented, but still seems to have some memories of things happening that did not actually happen. He believes he had car trouble last night. Cranial nerves and motor exam are grossly nonfocal. A/P Narrative: #1. Infectious disease. SIRS syndrome. Patient presents with cellulitis of his right foot and leg, associated with a diabetic foot ulcer. He appeared to have possible early sepsis , but is much improved . -Right lower extremity erythema is much improved today, as is his pain. -Blood cultures: 1 of 4 bottles is now growing gram-positive cocci. This looks like it will be a micrococcus. 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 Oral Augmentin should cover. - of wound care followed. -Right lower leg Doppler did not show DVT. 2. Cardiac. Patient presented with what we thought was new onset atrial fibrillation with rapid ventricular response. However, old records indicate he has had atrial fibrillation in the past, although he cannot recall this. His does recall a previous diagnosis of this. -Did speak with Dr. Ahn yesterday, who does not think the patient was ever diagnosed with A. fib in the past. He does have severe aortic stenosis. -Clonidine was held and metoprolol started. He seems to be tolerating this so far. Heart rate and blood pressure are improving. We are titrating the metoprolol up as tolerated. Blood pressure and heart rate are well controlled at this time. -Warfarin has been started. He will need daily INRs until this is stable. -Echocardiogram shows normal LV function, but dilated bilateral atria probably explains his atrial fibrillation. He has severe aortic stenosis, but does not report significant dyspnea or chest pain. I suspect he leads a very sedentary lifestyle. -He will need follow-up with cardiology at some point. 3. CODE STATUS: Patient requests full code. His will act as his POA. 4. DVT prophylaxis: Subcu heparin continue until warfarin is therapeutic.. 5. Hematologic. Patient has mild anemia and thrombocytopenia, both of which appear chronic. Both of these issues look moderately improved . 6. Endocrine. Type 2 diabetes. This is ranging from 120-130. glimepiride is on hold. Continue sliding scale coverage. Sulfonylureas to increase his risk for hypoglycemia, especially in the setting of renal disease. I think this should be discontinued. He is not a candidate for metformin regarding renal function. Low-dose Lantus was started. -Hypothyroidism. Continue levothyroxine. 7. chronic kidney disease, although the patient does not seem fully aware of this. creatinine is apparently near 2.1. He is near this at this time. He should follow-up with Dr. Herrmann, but apparently does not like to pay the co- pay to do this. Continue Lasix, hydralazine, metoprolol for hypertension.. Am not sure if hydralazine is the best choice for his blood pressure, given his severe aortic stenosis. Hopefully we can get him to follow-up with both cardiology and nephrology at some point. #8. Psychiatric. Patient continues to have mild sundowning and hallucinations at night. He had a better night sleep last night with low-dose Seroquel. Disposition: Patient continues to be quite weak, although seems to be making progress daily with physical therapy. He should continue rehab to decrease his fall risk, prior to returning home. Patient is a good candidate for physical therapy, Occupational Therapy, speech therapy evaluations, to optimize his functioning prior to returning home. Discharge diagnosis: RLE cellulitis. A. fib with RVR. Dementia. Weakness. Aortic stenosis. - Time Spent with Patient Total time spent providing and/or coordinating discharge services: Greater than 30 minutes Medical - DS: Exam - Constitutional Vitals: Vital Signs Temp Pulse Resp BP BP BP Pulse Ox 01/08/17 08:00 99.3 F H 18 134/97 95 01/08/17 03:44 99.6 F H 24 H 136/87 99 01/07/17 23:32 98.2 F 20 137/115 137/115 94 01/07/17 20:00 98.9 F 20 111/89 95 01/07/17 19:54 111/89 01/07/17 18:32 103 H 98 01/07/17 15:34 98.4 F 18 120/100 98 01/07/17 11:27 97.8 F 20 127/86 96 Intake and Output 01/07/17 01/08/17 01/08/17 21:59 05:59 13:59 Intake Total 580 / 580 200 / 200 100 / 100 Output Total 2525 / 2525 400 / 400 Balance -1945 / -1945 -200 / -200 100 / 100 Intake: IV 100 / 100 100 / 100 100 / 100 Zosyn 3.375 gm In Dextrose 5% 100 / 100 100 / 100 100 / 100 in Water 100 ml @ 100 mls/hr IV Q6H [facility] Rx#:[id number] Oral 480 / 480 100 / 100 Output: Urine Catheter Amount 2525 / 2525 400 / 400 Stool 0 / 0 Other: Meal Dinner Percent of Meal Consumed 25% Feeding Ability Assist with Tray Set Up Weight 260 lb 11.2 oz Medical - DS: Data Labs on day of discharge: Labs from last 24 hours 01/08/17 03:35 WBC 5.1 RBC 3.34 L Hgb 11.1 L Hct 33.4 L MCV 100.1 H MCH 33.3 MCHC 33.2 RDW 15.6 H Plt Count 141 MPV 8.3 Gran % 51.7 Lymph % (Auto) 29.5 [place] % (Auto) 14.2 H Eos % (Auto) 4.1 Baso % (Auto) 0.5 Gran # 2.6 Lymph # (Auto) 1.5 [place] # (Auto) 0.7 Eos # (Auto) 0.2 Baso # (Auto) 0 Preliminary micro results at discharge 01/03/17 12:50 Blood Culture - Preliminary Blood Staphylococcus species 01/03/17 12:41 Blood Culture - Preliminary Blood January 07: Chemistry panel: Sodium 138, potassium 3.8, chloride 97, CO2 25, anion gap 16, BUN 45, creatinine 2.4 (stable), glucose 137, calcium 9.0, phosphorus 3.4, magnesium 2.1, total bilirubin 0.5, GGT 77, AST 27 , ALT 16, alk phos 138, albumin 3.3, globulin 3.8 Blood culture from January 03 is now showing gram-positive cocci in a single bottle. Likely micrococcus. Likely contaminant. January 06: Lower extremity ultrasound shows no evidence of DVT. January 04: Echocardiogram: Left ventricle shows moderate concentric LVH, with ejection fraction 65-70%. Left atrium is moderate to severely dilated, and right atrium is mildly dilated. Moderate mitral calcification. Moderate pulmonary hypertension. Severe valvular aortic stenosis. January 03: EKG: Shows atrial fibrillation at a rate of 116, with early right bundle branch block. There are no obvious acute ischemic changes. Lactic acid is normal at 1.3 Chest x-ray: Shows mild pulmonary vascular congestion. Urinalysis is essentially normal. Nasal MRSA screen is negative. Blood cultures are negative so far. Medical - DS: A/P - Patient/Caregiver Discharge Instructions Activity: as per physical therapy Diet: Low Sodium (2gm), Renal/Consistent Carbs Prescriptions: Amoxicillin/Potassium Clav [Augmentin] 875 mg PO Q12H #8 tab HYDROcodone/APAP 5/325MG [Grace 5/325Mg] 1 tab PO Q4HP PRN #30 tab PRN Reason: Pain Level 3-6 Warfarin [Coumadin] 5 mg PO DAILY #1 tab Other Amb Orders: Aspiration Precautions Location: Determined By Patient Fall Risk Location: Determined By Patient OT Discharge Order Location: Determined By Patient Physical Therapy at Discharge - General Location: Determined By Patient ST Discharge Order Facility: [facility], Location: [facility]- Assisted ST Discharge Order Location: Determined By Patient Basic Metabolic Panel Time Frame: 2 Days, Location: Determined By Patient Complete Blood Count Time Frame: 2 Days, Location: Determined By Patient Prothrombin Time INR Time Frame: 1 Day, Location: Determined By Patient - Problem Maintenance (1) Cellulitis of right foot Status: Acute (2) Atrial fibrillation with RVR Status: Acute (3) Elevated troponin Status: Acute (4) CHF (congestive heart failure) Status: Acute (5) Anemia Status: Acute (6) Thrombocytopenia Status: Acute - Follow up Plan Follow up with: Apryl Bravo MD [Primary Care Provider] - Broderick Ahn MD [Physician] - Disposition: [facility] Prognosis: Fair Rehab Potential: Fair Overall status at discharge: patient is progressing back to baseline Medical - DS: Qual - VTE Deep Vein Thrombosis/Pulmonary Embolism Present on Admission: No
== END 2017-01-08 13:15 | DRG 638 ==
LOC: ED 22:46 → ICU 01-03 11:00
PROVIDERS: ADMIT Internal Medicine; ATTEND Internal Medicine

== ENCOUNTER 2017-02-17 17:44 | Inpatient (IN) ==
[2017-02-17] MEDS ORDERED: LACTATED RINGERS 1,000 ML IV ONE (18:24)
--- NOTE | 2017-02-17 18:26 | Emergency Department Note ---
Fever HPI - General Chief Complaint: Fever Stated Complaint: Fever Time Seen by Provider: 02/17/17 17:46 Source: patient, family Mode of arrival: EMS Limitations: no limitations - History of Present Illness HPI Narrative: Brought in by EMS with a history of generalized weakness. Apparently he is being taken care of by his and EMS was concerned secondary to lack of set up and care at home. He was laying in a puddle of urine, skin partially macerated from urine exposure, he does have a colostomy bag and states that was last changed this morning. He has been vomiting and there was coffee-ground material on his lips, unclear as to whether he had a nosebleed or not, he is on Coumadin dates he's had a cough for the last few months and feels a little bit short of breath, notably his temperature was almost 103 when he arrived here. 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 General weakness, he's been crawling around on his knees, unable to walk on his own. His flu test was negative. - Related Data Home Medications Medication Instructions Recorded Confirmed Allopurinol [Zyloprim] 200 mg PO DAILY 05/29/15 01/03/17 Furosemide [Lasix] 40 mg PO DAILY 05/29/15 01/03/17 Levothyroxine [Synthroid] 25 mcg PO DAILY 05/29/15 01/03/17 Oxybutynin Chloride [Oxybutynin 10 mg PO DAILY 05/29/15 01/03/17 Chloride ER] Simvastatin [Zocor] 40 mg PO HS 05/29/15 01/03/17 hydrALAZINE [Apresoline] 25 mg PO BID 05/29/15 01/03/17 Previous Rx's Medication Instructions Recorded Accu-Chek 1 each FS ACHS strip 01/08/17 Acetaminophen [Tylenol] 650 mg PO Q6HP PRN tablet 01/08/17 Albuterol Sulfate [Ventolin] 2.5 mg NEB Q4HRT PRN ampul.neb 01/08/17 Amoxicillin/Potassium Clav 875 mg PO Q12H #8 tab 01/08/17 [Augmentin] Docusate Sodium [Colace] 100 mg PO BID PRN capsule 01/08/17 HYDROcodone/APAP 5/325MG [[place] 1 tab PO Q4HP PRN #30 tab 01/08/17 5/325Mg] Heparin 5,000 unit SQ Q12 vial 01/08/17 Insulin Glargine, Human [Lantus] 5 unit SQ DAILY unit 01/08/17 Insulin Lispro [Humalog] See Protocol SQ ACHS #1 unit 01/08/17 Magnesium Hydroxide [Milk of 30 ml PO BIDP PRN oral.susp 01/08/17 Magnesia] Metoprolol Tartrate [Lopressor] 75 mg PO BID tablet 01/08/17 QUEtiapine [Seroquel] 25 mg PO HS tablet 01/08/17 Warfarin [Coumadin] 5 mg PO DAILY #1 tab 01/08/17 Allergies Allergy/AdvReac Type Severity Reaction Status Date / Time No Known Drug Allergies Allergy Unverified 05/29/15 10:46 Review of Systems Limitations: ROS unobtainable due to patients medical condition Constitutional: Reports: fever, chills, weakness ENT ED: Denies: throat pain Cardiovascular: Reports: dyspnea on exertion. Denies: chest pain Respiratory: Reports: shortness of breath, cough Gastrointestinal: Reports: abdominal pain, nausea, vomiting Neurological: Reports: weakness. Denies: headache Endocrine: Reports: fatigue Hematological/Lymphatic: Reports: easy bleeding, easy bruising Allergic/Immunologic: Denies: facial swelling Fever PMH - Past Medical History Attestation: Yes: The following information was validated with the patient. Medical history: Reports: atrial fibrillation, coronary artery disease, GERD, hyperlipidemia, obesity, osteoporosis, peripheral artery disease, other ( history of gout, history of colon cancer) Surgical history ED: Reports: cancer surgery, colostomy, orthopedic, other Family history: Reports: no significant family history - Social History smoking status: Former smoker Alcohol use: Reports: None Drug use: Reports: none Physical Exam Limitations: no limitations General appearance: alert Head: atraumatic, normocephalic Eye: Present: PERRL, EOMI, conjunctival injection ENT: mucous membranes dry, TM's normal bilaterally, normal external ear exam Neck: Present: normal inspection, full ROM, trachea midline. Absent: tenderness , meningismus, lymphadenopathy, thyromegaly Chest: Present: normal inspection, symmetric chest wall rise Respiratory: Present: respiratory distress, accessory muscle use Cardiovascular: Present: irregular rhythm, normal heart sounds Abdominal: Present: soft, distention, guarding, rebound, diminished bowel sounds Abdominal tenderness: Present: RLQ Rectal: Present: deferred, other (ccolostomy left lower quadrant with a peristomal hernia which is soft.) : Present: normal inspection, normal testicular lie. Absent: testicular tenderness, scrotal swelling Extremities: Present: joint swelling, other (deficit and knee extension.). Absent: full ROM Back: Present: normal inspection, other (Skin maceration). Absent: CVA tenderness (R), CVA tenderness (L) Neurological: Present: alert, CN II-XII intact. Absent: motor sensory deficit Psychiatric: Present: depressed, flat affect Skin: Present: warm, dry, cyanosis, other (multiple bruises, one to his left upper chest wall, several bruises to his arms) Course Vital Signs Temperature 102.8 F H 02/17/17 17:45 Pulse Rate 115 H 02/17/17 17:45 Respiratory Rate 24 H 02/17/17 17:45 Pulse Oximetry (%) 98 02/17/17 17:45 Temperature 101.8 F H 02/17/17 19:16 Pulse Rate 99 H 02/17/17 19:05 Respiratory Rate 24 H 02/17/17 17:45 Blood Pressure 92/66 02/17/17 19:16 Pulse Oximetry (%) 96 02/17/17 19:05 Fever - MDM Narrative Medical decision making narrative: History but there was a little almost 103, he was started on Rocephin based on the sepsis protocol, respiratory barkley his chest x-ray was clear, his white blood cell count was normal but then he did have heme positive stools in his colostomy bag. His flu test was negative. Not sure what the source of his infection has of the urine came back normal. At this point he has fever, undetermined etiology, generalized weakness associated with febrile illness, likely sepsis, high CRP and he does have a drop in his hemoglobin of at least one unit from his last visit and his Bielen is elevated, his creatinine also 2.5. He certainly has a mild degree of dehydration, also GI bleed and he will be admitted on the basis of high INR, GI bleed as well as sepsis criteria.discussed with our hospitalist. - Lab Data Result diagrams: 02/17/17 18:06 02/17/17 18:06 Lab Results 02/17/17 02/17/17 02/17/17 Range/Units 18:06 18:06 18:06 WBC 10.6 (4.5-11.0) K/mcL RBC 2.97 L (4.50-5.90) M/mcL Hgb 9.6 L (13.5-16.5) g/dL Hct 29.0 L (41.0-55.0) % POC Hct (41.0-55.0) % MCV 97.5 (80.0-100.0) fL MCH 32.4 (26.0-34.0) pg MCHC 33.3 (31.0-36.0) g/dL RDW 16.4 H (11.5-14.5) % Plt Count 219 (140-440) K/mcL MPV 8.5 (7.4-10.4) fL Total Counted 100 Seg Neutrophils % 60 (38-78) % Band Neutrophils % 2 (0-10) % Lymphocytes % 21 (15-49) % Monocytes % (Manual) 10 (1-12) % Eosinophils % (Manual) 5 (0-7) % Basophils % (Manual) 2 (0-2) % Platelet Estimate Normal (NORMAL) RBC Morphology Abnorm A (NORMAL) Anisocytosis 1+ A (NONE SEEN) PT (11.9-14.5) sec INR (0.9-1.1) VBG Lactic Acid 1.1 (0.5-2.2) mmol/L POC Sodium (133-145) mmol/L Sodium 136 (133-145) mmol/L POC Potassium (3.3-5.1) mmol/L Potassium 4.3 (3.3-5.1) mmol/L POC Chloride (96-108) mmol/L Chloride 93 L (96-108) mmol/L Carbon Dioxide 29 (22-30) mmol/L POC Total CO2 (22-30) mmol/L Anion Gap 14.0 (8-16) POC BUN (8-23) mg/dl BUN 81 H (8-23) mg/dl Creatinine 2.5 H (0.7-1.2) mg/dl POC Creatinine (0.7-1.2) mg/dl GFR Calculation 23 Glucose 64 L (70-105) mg/dL POC Glucose (70-105) mg/dL Calcium 8.3 L (8.6-10.4) mg/dl POC WB Ioniz Calcium (1.16-1.32) mmol/L Total Bilirubin 0.6 (0.0-1.0) mg/dL AST 31 (0-37) U/l ALT 12 (0-40) U/l Alkaline Phosphatase 112 (39-117) U/L C-Reactive Protein (0.0-0.8) mg/dl Total Protein 6.7 (5.9-8.4) gm/dL Albumin 2.8 L (3.2-5.2) gm/dL Globulin 3.9 H (2.2-3.7) gm/dL Albumin/Globulin Ratio 0.7 L (1.0-2.3) Urine Color Urine Appearance Urine pH (5.0-9.0) Ur Specific [place] (1.000-1.035) Urine Protein (NEG) mg/dL Urine Glucose (UA) (NEG) mg/dL Urine Ketones (NEG) mg/dL Urine Occult Blood (<0.03) mg/dL Urine Nitrate (NEG) Urine Bilirubin (NEG) mg/dL Urine Urobilinogen (NEG) mg/dL Ur Leukocyte Esterase (NEG) /uL Urine RBC (0-1) /hpf Urine WBC (0-4) /hpf Ur Squamous Epith Cells (0-4) /hpf Urine Bacteria (0) /hpf Hyaline Casts (0-2) /lpf Urine Mucus (0) /hpf Ur Culture Indicated? 02/17/17 02/17/17 02/17/17 Range/Units 18:06 18:06 19:00 WBC (4.5-11.0) K/mcL RBC (4.50-5.90) M/mcL Hgb (13.5-16.5) g/dL Hct (41.0-55.0) % POC Hct (41.0-55.0) % MCV (80.0-100.0) fL MCH (26.0-34.0) pg MCHC (31.0-36.0) g/dL RDW (11.5-14.5) % Plt Count (140-440) K/mcL MPV (7.4-10.4) fL Total Counted Seg Neutrophils % (38-78) % Band Neutrophils % (0-10) % Lymphocytes % (15-49) % Monocytes % (Manual) (1-12) % Eosinophils % (Manual) (0-7) % Basophils % (Manual) (0-2) % Platelet Estimate (NORMAL) RBC Morphology (NORMAL) Anisocytosis (NONE SEEN) PT 91.2 H (11.9-14.5) sec INR 11.0 H* (0.9-1.1) VBG Lactic Acid (0.5-2.2) mmol/L POC Sodium (133-145) mmol/L Sodium (133-145) mmol/L POC Potassium (3.3-5.1) mmol/L Potassium (3.3-5.1) mmol/L POC Chloride (96-108) mmol/L Chloride (96-108) mmol/L Carbon Dioxide (22-30) mmol/L POC Total CO2 (22-30) mmol/L Anion Gap (8-16) POC BUN (8-23) mg/dl BUN (8-23) mg/dl Creatinine (0.7-1.2) mg/dl POC Creatinine (0.7-1.2) mg/dl GFR Calculation Glucose (70-105) mg/dL POC Glucose (70-105) mg/dL Calcium (8.6-10.4) mg/dl POC WB Ioniz Calcium (1.16-1.32) mmol/L Total Bilirubin (0.0-1.0) mg/dL AST (0-37) U/l ALT (0-40) U/l Alkaline Phosphatase (39-117) U/L C-Reactive Protein 6.5 H (0.0-0.8) mg/dl Total Protein (5.9-8.4) gm/dL Albumin (3.2-5.2) gm/dL Globulin (2.2-3.7) gm/dL Albumin/Globulin Ratio (1.0-2.3) Urine Color Yellow Urine Appearance Clear Urine pH 6.0 (5.0-9.0) Ur Specific [place] 1.010 (1.000-1.035) Urine Protein Neg (NEG) mg/dL Urine Glucose (UA) Negative (NEG) mg/dL Urine Ketones Neg (NEG) mg/dL Urine Occult Blood Neg (<0.03) mg/dL Urine Nitrate Neg (NEG) Urine Bilirubin Neg (NEG) mg/dL Urine Urobilinogen Neg (NEG) mg/dL Ur Leukocyte Esterase Neg (NEG) /uL Urine RBC 1 (0-1) /hpf Urine WBC < 1 (0-4) /hpf Ur Squamous Epith Cells 0 (0-4) /hpf Urine Bacteria 0 (0) /hpf Hyaline Casts 2 (0-2) /lpf Urine Mucus Few (0) /hpf Ur Culture Indicated? No 02/17/17 Range/Units 20:30 WBC (4.5-11.0) K/mcL RBC (4.50-5.90) M/mcL Hgb (13.5-16.5) g/dL Hct (41.0-55.0) % POC Hct 26.0 L (41.0-55.0) % MCV (80.0-100.0) fL MCH (26.0-34.0) pg MCHC (31.0-36.0) g/dL RDW (11.5-14.5) % Plt Count (140-440) K/mcL MPV (7.4-10.4) fL Total Counted Seg Neutrophils % (38-78) % Band Neutrophils % (0-10) % Lymphocytes % (15-49) % Monocytes % (Manual) (1-12) % Eosinophils % (Manual) (0-7) % Basophils % (Manual) (0-2) % Platelet Estimate (NORMAL) RBC Morphology (NORMAL) Anisocytosis (NONE SEEN) PT (11.9-14.5) sec INR (0.9-1.1) VBG Lactic Acid (0.5-2.2) mmol/L POC Sodium 137 (133-145) mmol/L Sodium (133-145) mmol/L POC Potassium 3.9 (3.3-5.1) mmol/L Potassium (3.3-5.1) mmol/L POC Chloride 93 L (96-108) mmol/L Chloride (96-108) mmol/L Carbon Dioxide (22-30) mmol/L POC Total CO2 34 H (22-30) mmol/L Anion Gap (8-16) POC BUN 78 H (8-23) mg/dl BUN (8-23) mg/dl Creatinine (0.7-1.2) mg/dl POC Creatinine 2.7 H (0.7-1.2) mg/dl GFR Calculation Glucose (70-105) mg/dL POC Glucose 47 L (70-105) mg/dL Calcium (8.6-10.4) mg/dl POC WB Ioniz Calcium 1.04 L (1.16-1.32) mmol/L Total Bilirubin (0.0-1.0) mg/dL AST (0-37) U/l ALT (0-40) U/l Alkaline Phosphatase (39-117) U/L C-Reactive Protein (0.0-0.8) mg/dl Total Protein (5.9-8.4) gm/dL Albumin (3.2-5.2) gm/dL Globulin (2.2-3.7) gm/dL Albumin/Globulin Ratio (1.0-2.3) Urine Color Urine Appearance Urine pH (5.0-9.0) Ur Specific [place] (1.000-1.035) Urine Protein (NEG) mg/dL Urine Glucose (UA) (NEG) mg/dL Urine Ketones (NEG) mg/dL Urine Occult Blood (<0.03) mg/dL Urine Nitrate (NEG) Urine Bilirubin (NEG) mg/dL Urine Urobilinogen (NEG) mg/dL Ur Leukocyte Esterase (NEG) /uL Urine RBC (0-1) /hpf Urine WBC (0-4) /hpf Ur Squamous Epith Cells (0-4) /hpf Urine Bacteria (0) /hpf Hyaline Casts (0-2) /lpf Urine Mucus (0) /hpf Ur Culture Indicated? Disposition Pt seen by [employer]/PA only: No Clinical Impression: Fever of unknown origin, Sepsis Disposition: Xfer As Inpt ([facility]) Condition: Fair Referrals: Apryl Bravo MD [Primary Care Provider] -
[2017-02-17] MEDS ORDERED: cefTRIAXone 2 GM VIAL IV ONE (18:31)
[2017-02-17 18:45] LABS: Mean Cell Volume 97.5 fL (80.0-100.0); Mean Corpuscular HGB Conc 33.3 g/dL (31.0-36.0); Mean Corpuscular Hemoglobin 32.4 pg (26.0-34.0); Platelet Count 219 K/mcL (140-440); RBC 2.97 M/mcL (4.50-5.90); Red Cell Distribution Width 16.4 % (11.5-14.5)
--- NOTE | 2017-02-17 18:49 | XRay Report ---
INDICATION: Cough. Fever. TECHNIQUE: AP chest x-ray,portable COMPARISON: Chest x-rays dated 01/02/2017, 07/28/2014, 10/04/2012 FINDINGS:Lungs are negative. No parenchymal infiltrate or mass. Heart size and vascularity are within normal limits considering AP positioning. No pulmonary edema. No pulmonary congestion. No interval change. IMPRESSION: 1. No acute abnormality 2. No interval change since 01/02/2017 Interpreted and Authenticated by: Gene Barroso 02/17/17
[2017-02-17] MEDS ORDERED: 0.9 % SODIUM CHLORIDE 50 ML IV ONE (19:00)
[2017-02-17 19:04] LABS: ALT/SGPT 12 U/l (0-40); Albumin 2.8 gm/dL (3.2-5.2); Albumin/Globulin Ratio 0.7 (1.0-2.3); Alkaline Phosphatase 112 U/L (39-117); Blood Urea Nitrogen 81 mg/dl (8-23); C-Reactive Protein 6.5 mg/dl (0.0-0.8)
[2017-02-17 19:15] LABS: Anisocytosis 1+ (NONE SEEN); Band Neutrophils % 2 % (0-10); Basophils % (Manual) 2 % (0-2); Eosinophils % (Manual) 5 % (0-7); Lymphocytes % 21 % (15-49); Monocytes % (Manual) 10 % (1-12); Platelet Estimate NORMAL (NORMAL); RBC Morphology ABNORM (NORMAL); Segmented Neutrophils % 60 % (38-78)
[2017-02-17 19:59] LABS: Appearance,Urine CLEAR; Bacteria,Urine 0 /hpf (0); Bilirubin,Urine NEG (NEG); Color,Urine YELLOW; Glucose,Urine (UA) NEGATIVE (NEG); Leukocyte Esterase,Urine NEG /uL (NEG); Mucus,Urine FEW /hpf (0); Nitrate,Urine NEG (NEG); Protein,Urine NEG (NEG); Urine Blood NEG mg/dL (<0.03); Urine Hyaline Cast 2 /lpf (0-2); Urine RBC 1 /hpf (0-1); Urine Squamous Epithelial Cell 0 /hpf (0-4); Urine WBC < 1 /hpf (0-4); Urobilinogen,Urine NEG (NEG)
[2017-02-17] MEDS ORDERED: PHYTONADIONE 2.5 MG in 0.9 % SODIUM CHLORIDE 50 ML IV ONE (19:59)
[2017-02-17] MEDS ORDERED: PHYTONADIONE 10 MG/ML AMPUL ONE (20:24)
[2017-02-17] MEDS ORDERED: LACTATED RINGERS 1,000 ML IV SCH (20:45)
[2017-02-17] MEDS ORDERED: ONDANSETRON 4 MG/2 ML VIAL IV PRN (22:06)
[2017-02-17] MEDS ORDERED: DEXTROSE 31 GM ORAL.SUSP PO PRN (22:06)
[2017-02-17] MEDS ORDERED: DEXTROSE 50% 50 ML VIAL IV PRN (22:06)
--- NOTE | 2017-02-17 22:23 | Internal Med History&Physical ---
Medical - H&P: [facility] Patient information: Note initiated : 02/17/17 at 9:57 pm Service Date, if different from initiated Date: [] Patient: Kevin Albrecht 81 y/o M admitted on for Fever. Chief Complaint: [] Chief complaint: fever and general malaise History of present illness: Mr. Albrecht is a 81 year old Male, with muliple medical problems including chronic atrial fibrillation, DM, severe , called EMS because of 'feeling sick ' for the last 2 days with fever, nausea, vomiting (x1) and generalized weakness. He was for about ten days in a 'care facility'. but 'it didn't work out' and he was discharged about one week ago. He has not been able to walk for the last few weeks because of 'bad knees ' and he has been crawling around in the house, but the last two days he has been bedbound, and has been requiring help from his and son. EMS reported that patient was found smelling of urine in a dirty home. Patient has non-specific symptoms. VS upon arrival to ED was 101.6, 138, 96/70, 97%. He admits to having mild abdominal pain, but no problems with colostomy output. He has a cough, for the last few weeks, but it has been getting better. He denies SOB, CP, palpitations. He had nausea earlier today, but that has resolved. Labs significant for drop in hb, elevated INR and Bun/Cr. Lactate level, WBC and CXR were wnl. Patient was admitted in January to this hospital with R foot cellulits and atrial fibrillation with RVR, and started on coumadin. PMH is significant for DM, HTN, colon ca (has colostomy 12 years) and severe All systems: reviewed and no additional remarkable complaints except as stated Medical - H&P: PMH Medical history: Medical History Contusion of left knee (Acute) Degenerative joint disease (Acute) Cellulitis of right foot (Acute) Atrial fibrillation with RVR (Acute) Elevated troponin (Acute) CHF (congestive heart failure) (Acute) Anemia (Acute) Thrombocytopenia (Acute) Dermatitis associated with moisture (Chronic) Fever of unknown origin (Acute) Sepsis (Acute) Surgical history: S/P colon surgery for ca (colostomy) 12 years ago Social history: lives home with Functional capacity: bed bound (inability to walk x few weeks due to 'bad' knees ) Smoking status: Never smoker Drug use: none Alcohol use: none Medical - H&P: Meds Home Medications Medication Instructions Recorded Confirmed Type Allopurinol [Zyloprim] 200 mg PO DAILY 05/29/15 01/03/17 History Furosemide [Lasix] 40 mg PO DAILY 05/29/15 01/03/17 History Levothyroxine [Synthroid] 25 mcg PO DAILY 05/29/15 01/03/17 History Oxybutynin Chloride [Oxybutynin 10 mg PO DAILY 05/29/15 01/03/17 History Chloride ER] Simvastatin [Zocor] 40 mg PO HS 05/29/15 01/03/17 History hydrALAZINE [Apresoline] 25 mg PO BID 05/29/15 01/03/17 History Accu-Chek 1 each FS ACHS strip 01/08/17 Rx Acetaminophen [Tylenol] 650 mg PO Q6HP PRN tablet 01/08/17 Rx Albuterol Sulfate [Ventolin] 2.5 mg NEB Q4HRT PRN ampul.neb 01/08/17 Rx Amoxicillin/Potassium Clav 875 mg PO Q12H #8 tab 01/08/17 Rx [Augmentin] Docusate Sodium [Colace] 100 mg PO BID PRN capsule 01/08/17 Rx HYDROcodone/APAP 5/325MG [[place] 1 tab PO Q4HP PRN #30 tab 01/08/17 Rx 5/325Mg] Heparin 5,000 unit SQ Q12 vial 01/08/17 Rx Insulin Glargine, Human [Lantus] 5 unit SQ DAILY unit 01/08/17 Rx Insulin Lispro [Humalog] See Protocol SQ ACHS #1 unit 01/08/17 Rx Magnesium Hydroxide [Milk of 30 ml PO BIDP PRN oral.susp 01/08/17 Rx Magnesia] Metoprolol Tartrate [Lopressor] 75 mg PO BID tablet 01/08/17 Rx QUEtiapine [Seroquel] 25 mg PO HS tablet 01/08/17 Rx Warfarin [Coumadin] 5 mg PO DAILY #1 tab 01/08/17 Rx Allergies Allergy/AdvReac Type Severity Reaction Status Date / Time No Known Drug Allergies Allergy Unverified 05/29/15 10:46 Medical - H&P: Exam - Constitutional Vitals: Temp Pulse Resp BP Pulse Ox 100.0 F H 128 H 30 H 92/60 100 02/17/17 21:26 02/17/17 21:26 02/17/17 21:26 02/17/17 21:26 02/17/17 21:26 General appearance: mild distress, obese - Head Head exam: Present: normal inspection - Eye Eye exam: Present: PERRL - Expanded ENT Exam Mouth exam: Present: dry mucosa, laceration (lips) - Neck Neck exam: Present: normal inspection - Respiratory Respiratory exam: Present: decreased breath sounds - Cardiovascular Cardiovascular exam: Present: irregular rhythm - Extremities Exam Additional comments: CHRONIC VENOUS STASIS DERMATITIS. R ENGLISH ABRASION - Neurological Exam Neurological exam: Present: alert, oriented X3 - Skin Additional comments: DECUBITUS ULCERS R AND L GLUTEAL FOLD Medical - H&P: Reslt - Labs CBC & Chem 7: 02/17/17 18:06 02/17/17 18:06 Labs: Short CBC 02/17/17 Range/Units 18:06 WBC 10.6 (4.5-11.0) K/mcL Hgb 9.6 L (13.5-16.5) g/dL Hct 29.0 L (41.0-55.0) % Plt Count 219 (140-440) K/mcL BMP 02/17/17 18:06 Sodium 136 Potassium 4.3 Chloride 93 L Carbon Dioxide 29 BUN 81 H Creatinine 2.5 H Glucose 64 L Calcium 8.3 L Liver Function 02/17/17 Range/Units 18:06 Total Bilirubin 0.6 (0.0-1.0) mg/dL AST 31 (0-37) U/l ALT 12 (0-40) U/l Alkaline Phosphatase 112 (39-117) U/L Albumin 2.8 L (3.2-5.2) gm/dL Urine 02/17/17 Range/Units 19:00 Urine Color Yellow Urine Appearance Clear Urine pH 6.0 (5.0-9.0) Ur Specific [place] 1.010 (1.000-1.035) Urine Protein Neg (NEG) mg/dL Urine Glucose (UA) Negative (NEG) mg/dL - Impressions ECG: AFIB 150 PCXR:NO ACUTE CHANGES Medical - H&P: A/P - Narrative A/P Narrative: 81-YEAR-OLD MALE PRESENTED 02/17 WITH C/O FEVER AND GENERALIZED WEAKNESS X 2 DAYS. PRIMARY PROBLEMS: -FEVER, UNKNOWN SOURCE Inital VS 102.8, 108, 92/69 Inluenza screen: neg will obtain MRSA screen, blood and urine culture - PAROXYSMAL ATRIAL FIBRILLATION WITH RVR IVF fluidbolus Cardizem gtt at low dose as patient has moderate to severe Supratherapeutic INR. Vit K given - POSSIBLE GIB Drop in Hb from 11 in early Jan 2017 to 9.6. Stool in colostomy bag is brown, but heme pos. -AORTIC STENOSIS on ECHO 12/2016 AV area 0.8/0.35 cm2. Known with since 2014, likely stable. However, study 2014 was suboptimal Discontinue Lasix. Reassess need/dosis of metoprolol - DIABETES MELLITUS Cont insulin. SS insulin - ACUTE ON CHRONIC RENAL FAILURE BUN/CR: 81/2.5 cR IN jan was 2.4 IVF
[2017-02-17] MEDS: LACTATED RINGERS 1,000 ML IV SCH (22:45)
[2017-02-17] MEDS ORDERED: DEXTROSE 5% IN WATER 100 ML IV ONE (23:00)
[2017-02-17] MEDS ORDERED: DILTIAZEM 125 MG in DEXTROSE 5% IN WATER 100 ML IV SCH (23:00)
[2017-02-17] MEDS ORDERED: DILTIAZEM 125 MG/25 ML VIAL IV ONE (23:04)
[2017-02-17] MEDS: 0.9 % SODIUM CHLORIDE 10 ML SYRINGE IV SCH (23:24)
[2017-02-17 23:53] LABS: Estimated Average Glucose(eAG) 117 mg/dL; Hemoglobin A1C 5.7 % HGB (4.0-6.0)
[2017-02-18] MEDS: ACETAMINOPHEN 325 MG TABLET PO PRN ×2 (00:45→19:05)
[2017-02-18] MEDS ORDERED: 0.9 % SODIUM CHLORIDE 500 ML IV ONE (01:56)
[2017-02-18] MEDS ORDERED: NOREPINEPHRINE BITARTRATE 8 MG in 0.9 % SODIUM CHLORIDE 242 ML IV SCH (03:15)
[2017-02-18] MEDS ORDERED: VASOPRESSIN 20 UNIT/ML VIAL ONE ×2 (03:34→03:38)
[2017-02-18] MEDS: VASOPRESSIN 20 UNIT in DEXTROSE 5% IN WATER 99 ML IV SCH ×2 (03:43→12:19)
[2017-02-18] MEDS: 0.9 % SODIUM CHLORIDE 250 ML IV SCH ×2 (03:44→19:13)
[2017-02-18] MEDS: PIPERACILLIN SODIUM/TAZOBACTAM 2.25 GM in DEXTROSE 5% IN WATER 50 ML IV SCH ×4 (03:59→19:05)
[2017-02-18] MEDS ORDERED: DEXTROSE 5% IV ONE (04:20)
[2017-02-18] MEDS ORDERED: WATER IV ONE (04:20)
[2017-02-18] MEDS ORDERED: PIPERACILLIN SODIUM IV ONE (04:20)
[2017-02-18] MEDS ORDERED: TAZOBACTAM IV ONE (04:20)
[2017-02-18 05:18] LABS: Mean Cell Volume 97.9 fL (80.0-100.0); Mean Corpuscular Hemoglobin 32.3 pg (26.0-34.0); Platelet Count 144 K/mcL (140-440); RBC 2.43 M/mcL (4.50-5.90); Red Cell Distribution Width 16.9 % (11.5-14.5)
[2017-02-18 05:30] LABS: Blood Urea Nitrogen 84 mg/dl (8-23)
[2017-02-18] MEDS: LACTATED RINGERS 1,000 ML IV SCH ×2 (05:49→14:04)
[2017-02-18] MEDS: 0.9 % SODIUM CHLORIDE 10 ML SYRINGE IV SCH ×3 (05:56→21:03)
[2017-02-18] MEDS ORDERED: PHYTONADIONE 10 MG in 0.9 % SODIUM CHLORIDE 50 ML IV ONE (05:58)
[2017-02-18 05:59] LABS: Anisocytosis 2+ (NONE SEEN); Band Neutrophils % 1 % (0-10); Lymphocytes % 29 % (15-49); Monocytes % (Manual) 10 % (1-12); Platelet Estimate NORMAL (NORMAL); RBC Morphology ABNORM (NORMAL); Segmented Neutrophils % 60 % (38-78)
[2017-02-18] MEDS ORDERED: PHYTONADIONE 5 MG in 0.9 % SODIUM CHLORIDE 50 ML IV ONE (06:40)
[2017-02-18] MEDS ORDERED: 0.9 % SODIUM CHLORIDE 250 ML IV SCH (07:00)
[2017-02-18] MEDS: PANTOPRAZOLE 40 MG VIAL IV SCH (07:07)
[2017-02-18] MEDS ORDERED: DILTIAZEM 125 MG in DEXTROSE 5% IN WATER 100 ML IV PRN (07:15)
[2017-02-18] MEDS ORDERED: NOREPINEPHRINE BITARTRATE 8 MG in 0.9 % SODIUM CHLORIDE 242 ML IV PRN (07:15)
--- NOTE | 2017-02-18 07:34 | Internal Med Progress Note ---
Medical - PN: Subj Patient information: Note initiated : 02/18/17 at 7:26 am Service Date, if different from initiated Date: [] Patient: Kevin Albrecht a 81 y/o M admitted on 02/17/17 for Fever. Chief Complaint: [fever and general malaise] History of present illness: Mr. Albrecht is a 81 year old Male, with muliple medical problems including chronic atrial fibrillation, DM, severe , called EMS because of 'feeling sick ' for the last 2 days with fever, nausea, vomiting (x1) and generalized weakness. He was for about ten days in a 'care facility'. but 'it didn't work out' and he was discharged about one week ago. He has not been able to walk for the last few weeks because of 'bad knees ' and he has been crawling around in the house, but the last two days he has been bedbound, and has been requiring help from his and son. EMS reported that patient was found smelling of urine in a dirty home. Patient has non-specific symptoms. VS upon arrival to ED was 101.6, 138, 96/70, 97%. He admits to having mild abdominal pain, but no problems with colostomy output. He has a cough, for the last few weeks, but it has been getting better. He denies SOB, CP, palpitations. He had nausea earlier today, but that has resolved. Labs significant for drop in hb, elevated INR and Bun/Cr. Lactate level, WBC and CXR were wnl. Patient was admitted in January to this hospital with R foot cellulits and atrial fibrillation with RVR, and started on coumadin. PMH is significant for DM, HTN, colon ca (has colostomy 12 years) and severe Interval history: 02/17: Admitted to ICU for atrial fibrillation with RVR, SBP 100-110, and fever. HR was around 130's Started on Diltiazem gtt on 5 mg/hr without bolus. After 2 hours MBP 62-65. HR 110. Vasopressin gtt started prn to keep MBP > 60 02/18 Patient is awake, alert No specific complaints Hb dropped from 9.6 to 7.9. Stool is heme positive INR 11 dropped to 5.2 after vit K 2.5 mg. Today give vit K 5 mg, 2 U RBC and consult GI - Constitutional Vitals: Vital Signs Temp Pulse Resp BP Pulse Ox 99.0 F H 91 H 25 H 97/49 94 02/18/17 06:01 02/18/17 06:01 02/18/17 06:01 02/18/17 06:01 02/18/17 06:01 Period Temp Pulse Resp BP Sys/Mohr Pulse Ox Last 24 Hr 99.0 F-102.8 F 91-145 14-35 61-157/47-141 94-100 Intake and Output 02/17/17 02/18/17 02/18/17 21:59 05:59 13:59 Intake Total 1000 / 1000 2361 / 2361 800 / 800 Output Total 1700 / 1700 815 / 815 250 / 250 Balance -700 / -700 1546 / 1546 550 / 550 Weight 262 lb 257 lb 14.4 oz Intake & Output: Intake & Output 02/17/17 02/18/17 02/18/17 21:59 05:59 13:59 Intake Total 1000 / 1000 2361 / 2361 800 / 800 Output Total 1700 / 1700 815 / 815 250 / 250 Balance -700 / -700 1546 / 1546 550 / 550 Weight 262 lb 257 lb 14.4 oz Intake: IV 1000 / 1000 1561 / 1561 Sodium Chloride 0.9% 500 ml @ 500 / 500 Wide Open IV BOLUS ONE Rx#: [id number] Cardizem 125 mg In Dextrose 5% 11 11 in Water 100 ml @ 5 MG/HR 5 mls /hr IV Q12H [facility] Rx#:[id number] Lactated Ringers 1,000 ml @ 150 1000 / 1000 1000 / 1000 mls/hr IV .Q6H40M [facility] Rx#: [id number] Zosyn 2.25 gm In Dextrose 5% in 50 / 50 Water 50 ml @ 100 mls/hr IV Q6H [facility] Rx#:[id number] Oral 800 / 800 800 / 800 Output: Urine Catheter Amount 1700 / 1700 815 / 815 Stool 250 / 250 Other: # Bowel Movements 1 General appearance: no acute distress - Respiratory Respiratory exam: Present: normal respiratory exam - Cardiovascular Cardiovascular exam: Present: irregular rhythm, tachycardia - GI/Abdominal GI/Abdominal exam: Present: normal bowel sounds Additional comments: COLOSTOMY WITH DARK BROWN STOOL. WAS HEME POSITIVE - Extremities Exam Additional comments: CHRONIC VENOUS STASIS DERMATITIS. NO EVIDENCE OF INFECTION Medical - PN: Obj Da - Labs CBC & Chem 7: 02/18/17 04:15 02/18/17 04:15 Labs: Abnormal Lab Results 02/18/17 02/18/17 02/18/17 05:10 04:15 04:15 RBC Hgb Hct POC Hct RDW RBC Morphology Polychromasia Anisocytosis PT 50.3 H INR 5.2 H POC Chloride Chloride POC Total CO2 POC BUN BUN 84 H Creatinine 2.5 H POC Creatinine Glucose POC Glucose Calcium 7.9 L POC WB Ioniz Calcium Troponin T 0.04 H* C-Reactive Protein Albumin Globulin Albumin/Globulin Ratio 02/18/17 02/17/17 02/17/17 04:15 20:30 18:06 RBC 2.43 L Hgb 7.9 L Hct 23.8 L POC Hct 26.0 L RDW 16.9 H RBC Morphology Abnorm A Polychromasia 1+ A Anisocytosis 2+ A PT INR POC Chloride 93 L Chloride POC Total CO2 34 H POC BUN 78 H BUN Creatinine POC Creatinine 2.7 H Glucose POC Glucose 47 L Calcium POC WB Ioniz Calcium 1.04 L Troponin T C-Reactive Protein 6.5 H Albumin Globulin Albumin/Globulin Ratio 02/17/17 02/17/17 02/17/17 18:06 18:06 18:06 RBC 2.97 L Hgb 9.6 L Hct 29.0 L POC Hct RDW 16.4 H RBC Morphology Abnorm A Polychromasia Anisocytosis 1+ A PT 91.2 H INR 11.0 H* POC Chloride Chloride 93 L POC Total CO2 POC BUN BUN 81 H Creatinine 2.5 H POC Creatinine Glucose 64 L POC Glucose Calcium 8.3 L POC WB Ioniz Calcium Troponin T C-Reactive Protein Albumin 2.8 L Globulin 3.9 H Albumin/Globulin Ratio 0.7 L Meds: Medications Acetaminophen (Tylenol) 650 mg PO Q4-6HP PRN PRN Reason: PAIN/FEVER > 101 Last Admin: 02/18/17 00:45 Dose: 650 mg Dextrose (Dextrose 50%) 0 ml IV UD PRN PRN Reason: Hypoglycemia Diagnostic Test (Pha) (Accu-Chek) 1 each FS ACHS RA Last Admin: 02/17/17 22:10 Dose: 1 each Glucose (Insta-Glucose) 15 gm PO PRN PRN PRN Reason: Hypoglycemia Lactated Ringer's (Lactated Ringers) 1,000 mls @ 150 mls/hr IV .Q6H40M [facility] Last Admin: 02/18/17 05:49 Dose: 150 mls/hr Sodium Chloride (Sodium Chloride 0.9%) 250 mls @ 20 mls/hr IV .[id number] [facility] Last Admin: 02/18/17 03:44 Dose: 10 mls/hr Vasopressin 20 unit/ Dextrose 100 mls @ 6 mls/hr IV Q17H [facility]; 0.02 UNIT/MIN PRN Reason: Protocol Last Admin: 02/18/17 03:43 Dose: 0.04 unit/min, 12 mls/hr Piperacillin Sod/Tazobactam (Sod 2.25 gm/ Dextrose) 50 mls @ 100 mls/hr IV Q6H [facility] Last Infusion: 02/18/17 04:24 Dose: Infused Phytonadione 5 mg/ Sodium (Chloride) 50.5 mls @ 50 mls/hr IV ONCE ONE Stop: 02/18/17 07:40 Diltiazem HCl 125 mg/ Dextrose 125 mls @ 5 mls/hr IV Q12HP PRN; Protocol; 5 MG/ HR PRN Reason: TITRATE TO KEEP HR <100,SBP>90 Norepinephrine Bitartrate 8 mg (/ Sodium Chloride) 250 mls @ 9.37 mls/hr IV Q14H PRN; Protocol; 5 MCG/MIN PRN Reason: TITRATE TO KEEP MAP > 65 Insulin Human Lispro (Humalog) 0 unit SQ ACHS RA PRN Reason: Protocol Ondansetron HCl (Zofran) 4 mg IV Q4-6HP PRN PRN Reason: Nausea And Vomiting Oseltamivir Phosphate (Tamiflu) 75 mg PO DAILY [facility] Stop: 02/22/17 09:01 Pantoprazole Sodium (Protonix) 40 mg IV ACB [facility] Last Admin: 02/18/17 07:07 Dose: 40 mg Sodium Chloride (Saline Flush) 10 ml IV Q8 [facility] Last Admin: 02/18/17 05:56 Dose: Not Given Medical - PN: A/P - Time Spent With Patient Total time spent is greater than 50% in coordination of care (as documented) at patient's floor/unit and/or counseling patient: 25 - 35 minutes (1) Gastrointestinal bleeding Status: Acute Current Visit: Yes (2) Supratherapeutic INR Status: Acute Current Visit: Yes (3) Atrial fibrillation with rapid ventricular response Status: Acute Current Visit: Yes - Narrative A/P Narrative: A/P Narrative: 81-YEAR-OLD MALE PRESENTED 02/17 WITH C/O FEVER AND GENERALIZED WEAKNESS X 2 DAYS. PRIMARY PROBLEMS: -FEVER, UNKNOWN SOURCE Inital VS 102.8, 108, 92/69 Inluenza screen: neg will obtain MRSA screen, blood and urine culture 02/17: Febrile illness, no obvious source. Started empirically on Tamiflu and Zosyn - PAROXYSMAL ATRIAL FIBRILLATION WITH RVR IVF fluidbolus 02/17. Cardizem gtt at low dose as patient has moderate to severe . Was on 5mg/ hr x 2 hours MBP dropped to 62--> discontinued - SUPRTHERAPEUTIC INR 02/17 given 2.5 mg dropped from 11 to 5 02/18 will give 5 mg (has significant drop in Hb) - GIB Drop in Hb from 11 in early Jan 2017 to 9.6. Stool in colostomy bag is brown, but heme pos. Reversal of INR in progress Will consult GI -AORTIC STENOSIS on ECHO 12/2016 AV area 0.8/0.35 cm2. Known with since 2014, likely stable. However, study 2014 was suboptimal Discontinue Lasix. Reassess need/dosis of metoprolol. On hold for now. - DIABETES MELLITUS A1C: 5.7 hold insulin monitor bs - ACUTE ON CHRONIC RENAL FAILURE BUN/CR: 81/2.5 cR IN dEC was 2.4 IVF PLAN 02/18: RBC Continue vasopress gtt as needed to maintain BP vit K consult GI Will need central or PICC line. Vit K given, will recheck INR
[2017-02-18] MEDS ORDERED: PROTHROMBIN COMPLEX CONCENTRATE IV ONE (08:01)
[2017-02-18] MEDS: INSULIN LISPRO 1 UNIT/0.01 ML UNIT SQ SCH ×4 (08:05→20:52)
[2017-02-18] MEDS: OSELTAMIVIR PHOSPHATE 75 MG CAPSULE PO SCH (08:10)
[2017-02-18] MEDS ORDERED: [UNRECOGNIZED DRUG - OTHER] IV ONE (10:00)
[2017-02-18] MEDS ORDERED: [UNRECOGNIZED DRUG - OTHER] IV ONE (10:15)
[2017-02-18] MEDS ORDERED: HUM PROTHROMBIN CPLX IV ONE (10:15)
[2017-02-18] MEDS: 0.9 % SODIUM CHLORIDE 1,000 ML IV SCH (14:43)
[2017-02-18] MEDS ORDERED: VANCOMYCIN PER PHARMACY IV ONE (16:16)
[2017-02-18] MEDS ORDERED: VANCOMYCIN 1,500 MG in 0.9 % SODIUM CHLORIDE 500 ML IV ONE (17:00)
[2017-02-19] MEDS: PIPERACILLIN SODIUM/TAZOBACTAM 2.25 GM in DEXTROSE 5% IN WATER 50 ML IV SCH ×4 (00:20→19:00)
[2017-02-19] MEDS: 0.9 % SODIUM CHLORIDE 1,000 ML IV SCH ×4 (00:37→12:56)
[2017-02-19] MEDS: 0.9 % SODIUM CHLORIDE 250 ML IV SCH (03:53)
[2017-02-19 04:49] LABS: Platelet Estimate TPN (NORMAL)
[2017-02-19 05:03] LABS: Blood Urea Nitrogen 74 mg/dl (8-23)
[2017-02-19] MEDS: VASOPRESSIN 20 UNIT in DEXTROSE 5% IN WATER 99 ML IV SCH (05:41)
[2017-02-19] MEDS: 0.9 % SODIUM CHLORIDE 10 ML SYRINGE IV SCH ×3 (05:41→21:31)
[2017-02-19 06:02] LABS: Mean Corpuscular HGB Conc 33.5 g/dL (31.0-36.0); Mean Corpuscular Hemoglobin 32.5 pg (26.0-34.0); Platelet Count 164 K/mcL (140-440); RBC 3.21 M/mcL (4.50-5.90); Red Cell Distribution Width 15.9 % (11.5-14.5)
[2017-02-19 06:27] LABS: Anisocytosis 1+ (NONE SEEN); Band Neutrophils % 1 % (0-10); Eosinophils % (Manual) 5 % (0-7); Lymphocytes % 12 % (15-49); Monocytes % (Manual) 6 % (1-12); Platelet Estimate NORMAL (NORMAL); RBC Morphology ABNORM (NORMAL); Segmented Neutrophils % 72 % (38-78)
[2017-02-19] MEDS ORDERED: VANCOMYCIN PER PHARMACY IV SCH ×2 (07:00→11:26)
[2017-02-19] MEDS: PANTOPRAZOLE 40 MG VIAL IV SCH ×2 (07:42→21:30)
[2017-02-19] MEDS: INSULIN LISPRO 1 UNIT/0.01 ML UNIT SQ SCH ×4 (07:43→21:30)
[2017-02-19] MEDS: OSELTAMIVIR PHOSPHATE 75 MG CAPSULE PO SCH (08:03)
--- NOTE | 2017-02-19 11:32 | Internal Med Progress Note ---
Medical - PN: Subj Patient information: Note initiated : 02/19/17 at 11:29 am Service Date, if different from initiated Date: [] Patient: Kevin Albrecht 81 y/o M admitted on 02/17/17 for Fever. Chief Complaint: [] Interval history: 02/17: Admitted to ICU for atrial fibrillation with RVR, SBP 100-110, and fever. HR was around 130's Started on Diltiazem gtt on 5 mg/hr without bolus. After 2 hours MBP 62-65. HR 110. Vasopressin gtt started prn to keep MBP > 60 02/18 Patient is awake, alert No specific complaints Hb dropped from 9.6 to 7.9. Stool is heme positive INR 11 dropped to 5.2 after vit K 2.5 mg. Today give vit K 5 mg, 2 U RBC and consult GI 02/19-no further episodes of GI bleed. Hemoglobin at 10.4. No overnight events. Patient unwilling to participate in physical therapy due to generalized aches. Patient is clearly unable to take care of self and would need assistance/SNF placement. Case management coordinating placement. DC vancomycin in light of coag-negative staph on blood cultures.INR down to 1.2. Blood sugars at goal. improving BUN/creatinine. started on twice daily IV protonic state of upper GI bleed in light of elevated BUN. - Constitutional Vitals: Vital Signs Temp Pulse Resp BP Pulse Ox 98.3 F 113 H 23 H 108/86 98 02/19/17 11:01 02/18/17 10:00 02/19/17 11:01 02/19/17 11:01 02/19/17 11:01 Period Temp Pulse Resp BP Sys/Mohr Pulse Ox Last 24 Hr 97.8 F-100.2 F 12-35 90-129/39-110 97-100 Intake and Output 02/18/17 02/19/17 02/19/17 21:59 05:59 13:59 Intake Total 1628 / 1628 1799 / 1799 1010 / 1010 Output Total 845 / 845 585 / 585 370 / 370 Balance 783 / 783 1214 / 1214 640 / 640 Weight 256 lb 3.2 oz Intake & Output: Intake & Output 02/18/17 02/19/17 02/19/17 21:59 05:59 13:59 Intake Total 1628 / 1628 1799 / 1799 1010 / 1010 Output Total 845 / 845 585 / 585 370 / 370 Balance 783 / 783 1214 / 1214 640 / 640 Weight 256 lb 3.2 oz Intake: IV 933 / 933 1050 / 1050 50 / 50 Sodium Chloride 0.9% 1,000 ml @ 1000 / 1000 100 mls/hr IV .Q10H [facility] Rx#: [id number] Sodium Chloride 0.9% 250 ml @ 194 / 194 20 mls/hr IV .[id number] [facility] Rx#: [id number] Lactated Ringers 1,000 ml @ 150 70 / 70 mls/hr IV .Q6H40M [facility] Rx#: [id number] Zosyn 2.25 gm In Dextrose 5% in 100 / 100 50 / 50 50 / 50 Water 50 ml @ 100 mls/hr IV Q6H [facility] Rx#:[id number] Vasostrict 20 Unit In Dextrose 69 / 69 5% in Water 99 ml @ 0.02 UNIT/ MIN 6 mls/hr IV Q17H [facility] Rx#: [id number] Oral 420 / 420 960 / 960 Tube Feeding 749 / 749 Blood Product 275 / 275 Output: Urine Catheter Amount 595 / 595 435 / 435 370 / 370 Urine/Stool Mix 250 / 250 Stool 150 / 150 Other: Meal Dinner Breakfast Percent of Meal Consumed 75% 100% Feeding Ability Independent General appearance: cooperative, no acute distress Exam: alert oriented nondistended abdomen Nonlabored breathing No telemetry events Colostomy draining melenic stool Medical - PN: Obj Da - Labs CBC & Chem 7: 02/19/17 05:20 02/19/17 03:38 Labs: Abnormal Lab Results 02/19/17 02/19/17 02/18/17 05:20 03:38 15:34 RBC 3.21 L Hgb 10.4 L Hct 31.1 L POC Hct RDW 15.9 H Lymphocytes % 12 L Reactive Lymphocytes 4 H RBC Morphology Abnorm A Polychromasia Few A Anisocytosis 1+ A POC PT PT 15.5 H POC INR INR 1.2 H POC Chloride Chloride POC Total CO2 POC BUN BUN 74 H Creatinine 2.4 H POC Creatinine Glucose POC Glucose Calcium 7.8 L POC WB Ioniz Calcium Troponin T C-Reactive Protein Albumin Globulin Albumin/Globulin Ratio 02/18/17 02/18/17 02/18/17 15:34 09:25 09:22 RBC Hgb 9.5 L Hct 28.7 L POC Hct RDW Lymphocytes % Reactive Lymphocytes RBC Morphology Polychromasia Anisocytosis POC PT 60.4 H PT 36.9 H POC INR 5.5 H* INR 3.5 H POC Chloride Chloride POC Total CO2 POC BUN BUN Creatinine POC Creatinine Glucose POC Glucose Calcium POC WB Ioniz Calcium Troponin T C-Reactive Protein Albumin Globulin Albumin/Globulin Ratio 02/18/17 02/18/17 02/18/17 05:10 04:15 04:15 RBC Hgb Hct POC Hct RDW Lymphocytes % Reactive Lymphocytes RBC Morphology Polychromasia Anisocytosis POC PT PT 50.3 H POC INR INR 5.2 H POC Chloride Chloride POC Total CO2 POC BUN BUN 84 H Creatinine 2.5 H POC Creatinine Glucose POC Glucose Calcium 7.9 L POC WB Ioniz Calcium Troponin T 0.04 H* C-Reactive Protein Albumin Globulin Albumin/Globulin Ratio 02/18/17 02/17/17 02/17/17 04:15 20:30 18:06 RBC 2.43 L Hgb 7.9 L Hct 23.8 L POC Hct 26.0 L RDW 16.9 H Lymphocytes % Reactive Lymphocytes RBC Morphology Abnorm A Polychromasia 1+ A Anisocytosis 2+ A POC PT PT POC INR INR POC Chloride 93 L Chloride POC Total CO2 34 H POC BUN 78 H BUN Creatinine POC Creatinine 2.7 H Glucose POC Glucose 47 L Calcium POC WB Ioniz Calcium 1.04 L Troponin T C-Reactive Protein 6.5 H Albumin Globulin Albumin/Globulin Ratio 02/17/17 02/17/17 02/17/17 18:06 18:06 18:06 RBC 2.97 L Hgb 9.6 L Hct 29.0 L POC Hct RDW 16.4 H Lymphocytes % Reactive Lymphocytes RBC Morphology Abnorm A Polychromasia Anisocytosis 1+ A POC PT PT 91.2 H POC INR INR 11.0 H* POC Chloride Chloride 93 L POC Total CO2 POC BUN BUN 81 H Creatinine 2.5 H POC Creatinine Glucose 64 L POC Glucose Calcium 8.3 L POC WB Ioniz Calcium Troponin T C-Reactive Protein Albumin 2.8 L Globulin 3.9 H Albumin/Globulin Ratio 0.7 L Meds: Medications Acetaminophen (Tylenol) 650 mg PO Q4-6HP PRN PRN Reason: PAIN/FEVER > 101 Last Admin: 02/18/17 19:05 Dose: 650 mg Dextrose (Dextrose 50%) 0 ml IV UD PRN PRN Reason: Hypoglycemia Diagnostic Test (Pha) (Accu-Chek) 1 each FS ACHS [facility] Last Admin: 02/19/17 07:43 Dose: 1 each Glucose (Insta-Glucose) 15 gm PO PRN PRN PRN Reason: Hypoglycemia Sodium Chloride (Sodium Chloride 0.9%) 250 mls @ 20 mls/hr IV .[id number] [facility] Last Admin: 02/19/17 03:53 Dose: Not Given Vasopressin 20 unit/ Dextrose 100 mls @ 6 mls/hr IV Q17H [facility]; 0.02 UNIT/MIN PRN Reason: Protocol Last Admin: 02/19/17 05:41 Dose: Not Given Piperacillin Sod/Tazobactam (Sod 2.25 gm/ Dextrose) 50 mls @ 100 mls/hr IV Q6H [facility] Last Infusion: 02/19/17 06:43 Dose: Infused Insulin Human Lispro (Humalog) 0 unit SQ ACHS [facility] PRN Reason: Protocol Last Admin: 02/19/17 07:43 Dose: Not Given Ondansetron HCl (Zofran) 4 mg IV Q4-6HP PRN PRN Reason: Nausea And Vomiting Oseltamivir Phosphate (Tamiflu) 75 mg PO DAILY [facility] Stop: 02/22/17 09:01 Last Admin: 02/19/17 08:03 Dose: 75 mg Pantoprazole Sodium (Protonix) 40 mg IV ACB [facility] Last Admin: 02/19/17 07:42 Dose: 40 mg Sodium Chloride (Saline Flush) 10 ml IV Q8 [facility] Last Admin: 02/19/17 05:41 Dose: 10 ml Vancomycin HCl (Vancomycin Per Pharmacy) 1 order IV ONCE ONE Stop: 02/19/17 11:27 Medical - PN: A/P - Time Spent With Patient Total time spent is greater than 50% in coordination of care (as documented) at patient's floor/unit and/or counseling patient: 25 - 35 minutes - Narrative A/P Narrative: A/P Narrative: 81-YEAR-OLD MALE PRESENTED 02/17 WITH C/O FEVER AND GENERALIZED WEAKNESS X 2 DAYS. * upper GI bleed- Stable hemoglobin at 10.4. Secondary to supratherapeutic INR now reversed with vitamin K and K [facility]. INR 1.2 down from 11. continue IV PPI. schedule outpatient endoscopist evaluation at [facility] * blood loss anemia-stable * gram-positive bacteremia= contaminant coag-negative staph. DC Vanco * Acute viral syndrome on Tamiflu. DC ZosynF Pro calcitonin negative * Paroxysmal atrial fibrillation with RVR- rate controlled. anticoagulation reversed due to upper GI bleed * History of aortic stenosis restart metoprolol once GI bleed resolved * DM type II-A1c 5.7 * Acute and chronic renal failure-reatinine at baseline. Elevated BUN due to GI bleed * prophylaxis SCDs Plan * de-escalate antibiotics * IV PPI * Pre-existing medical condition management as above * DC vancomycin
[2017-02-19] MEDS ORDERED: VANCOMYCIN 1,500 MG in 0.9 % SODIUM CHLORIDE 500 ML IV ONE (17:00)
[2017-02-19] MEDS: ACETAMINOPHEN 325 MG TABLET PO PRN (21:15)
[2017-02-20] MEDS: VASOPRESSIN 20 UNIT in DEXTROSE 5% IN WATER 99 ML IV SCH (00:18)
[2017-02-20] MEDS: PIPERACILLIN SODIUM/TAZOBACTAM 2.25 GM in DEXTROSE 5% IN WATER 50 ML IV SCH ×2 (00:19→05:13)
[2017-02-20] MEDS: 0.9 % SODIUM CHLORIDE 10 ML SYRINGE IV SCH ×5 (05:29→19:59)
[2017-02-20 06:19] LABS: Mean Cell Volume 98.1 fL (80.0-100.0); Mean Corpuscular HGB Conc 33.4 g/dL (31.0-36.0); Mean Corpuscular Hemoglobin 32.8 pg (26.0-34.0); Platelet Count 144 K/mcL (140-440); RBC 3.06 M/mcL (4.50-5.90); Red Cell Distribution Width 16.3 % (11.5-14.5)
[2017-02-20 06:37] LABS: ALT/SGPT 18 U/l (0-40); Albumin 2.3 gm/dL (3.2-5.2); Albumin/Globulin Ratio 0.6 (1.0-2.3); Alkaline Phosphatase 108 U/L (39-117); Bilirubin,Direct < 0.2 mg/dL (0.0-0.3); Blood Urea Nitrogen 63 mg/dl (8-23); Gamma Glutamyl Transpeptidase 34 U/L (8-61); Magnesium 2.1 mg/dL (1.6-2.5); Uric Acid 5.5 mg/dL (2.5-8.0)
[2017-02-20] MEDS: INSULIN LISPRO 1 UNIT/0.01 ML UNIT SQ SCH ×4 (08:11→19:58)
[2017-02-20] MEDS: OSELTAMIVIR PHOSPHATE 75 MG CAPSULE PO SCH (08:11)
[2017-02-20] MEDS: PANTOPRAZOLE 40 MG VIAL IV SCH ×2 (08:12→19:59)
[2017-02-20 08:42] LABS: Anisocytosis 1+ (NONE SEEN); Band Neutrophils % 3 % (0-10); Eosinophils % (Manual) 6 % (0-7); Lymphocytes % 19 % (15-49); Monocytes % (Manual) 12 % (1-12); Platelet Estimate NORMAL (NORMAL); RBC Morphology ABN (NORMAL); Segmented Neutrophils % 60 % (38-78)
[2017-02-20] MEDS ORDERED: ACETAMINOPHEN 325 MG TABLET PO PRN ×2 (09:40→11:20)
[2017-02-20] MEDS ORDERED: DEXTROSE 31 GM ORAL.SUSP PO PRN (09:40)
[2017-02-20] MEDS ORDERED: DEXTROSE 50% 50 ML VIAL IV PRN (09:40)
[2017-02-20] MEDS ORDERED: ONDANSETRON 4 MG/2 ML VIAL IV PRN (09:40)
[2017-02-20] MEDS ORDERED: DOCUSATE SODIUM 100 MG CAPSULE PO PRN (11:20)
[2017-02-20] MEDS ORDERED: PIPERACILLIN SODIUM/TAZOBACTAM 2.25 GM in DEXTROSE 5% IN WATER 50 ML IV SCH (12:00)
--- NOTE | 2017-02-20 14:16 | Internal Med Progress Note ---
Medical - PN: Subj Patient information: Note initiated : 02/20/17 at 1:51 pm Service Date, if different from initiated Date: [] Patient: Kevin Albrecht 81 y/o M admitted on 02/17/17 for Fever. Chief Complaint: [] Interval history: 02/17: Admitted to ICU for atrial fibrillation with RVR, SBP 100-110, and fever. HR was around 130's Started on Diltiazem gtt on 5 mg/hr without bolus. After 2 hours MBP 62-65. HR 110. Vasopressin gtt started prn to keep MBP > 60 02/18 Patient is awake, alert No specific complaints Hb dropped from 9.6 to 7.9. Stool is heme positive INR 11 dropped to 5.2 after vit K 2.5 mg. Today give vit K 5 mg, 2 U RBC and consult GI 02/19-no further episodes of GI bleed. Hemoglobin at 10.4. No overnight events. Patient unwilling to participate in physical therapy due to generalized aches. Patient is clearly unable to take care of self and would need assistance/SNF placement. Case management coordinating placement. DC vancomycin in light of coag-negative staph on blood cultures.INR down to 1.2. Blood sugars at goal. improving BUN/creatinine. started on twice daily IV protonic state of upper GI bleed in light of elevated BUN. 02/20- hemoglobin stable at 10. minimal melenic output. no overnight fever or chills. Patient feels at baseline. Complains of generalized aches and pains and resisting to participate in physical therapy. Starting low-dose oral opioid to counter pain while undergoing physical therapy. anticipate discharge to SNF in 48. - Constitutional Vitals: Vital Signs Temp Pulse Resp BP Pulse Ox 98.5 F 126 H 26 H 123/99 100 02/20/17 11:57 02/20/17 08:00 02/20/17 11:57 02/20/17 11:57 02/20/17 11:57 Period Temp Pulse Resp BP Sys/Mohr Pulse Ox Last 24 Hr 97.6 F-99.6 F 96-126 0-36 94-133/45-99 81-100 Intake and Output 02/19/17 02/20/17 02/20/17 21:59 05:59 13:59 Intake Total 1819 / 1819 800 / 800 520 / 520 Output Total 1155 / 1155 685 / 685 120 / 120 Balance 664 / 664 115 / 115 400 / 400 Weight 267 lb 3.2 oz Intake & Output: Intake & Output 02/19/17 02/20/17 02/20/17 21:59 05:59 13:59 Intake Total 1819 / 1819 800 / 800 520 / 520 Output Total 1155 / 1155 685 / 685 120 / 120 Balance 664 / 664 115 / 115 400 / 400 Weight 267 lb 3.2 oz Intake: IV 979 / 979 100 / 100 Sodium Chloride 0.9% 250 ml @ 6 / 6 20 mls/hr IV .[id number] [facility] Rx#: [id number] Zosyn 2.25 gm In Dextrose 5% in 50 / 50 100 / 100 Water 50 ml @ 100 mls/hr IV Q6H [facility] Rx#:[id number] Oral 840 / 840 700 / 700 520 / 520 Output: Urine Catheter Amount 505 / 505 660 / 660 120 / 120 Stool 650 / 650 25 / 25 Other: Meal Lunch Breakfast Percent of Meal Consumed 100% 100% Feeding Ability Independent General appearance: cooperative, no acute distress Exam: alert oriented nonlabored breathing Ambulating No anxiety colostomyinimal output Medical - PN: Obj Da - Labs CBC & Chem 7: 02/20/17 04:06 02/20/17 04:06 Labs: Abnormal Lab Results 02/20/17 02/20/17 02/19/17 04:06 04:06 05:20 RBC 3.06 L 3.21 L Hgb 10.0 L 10.4 L Hct 30.0 L 31.1 L POC Hct RDW 16.3 H 15.9 H Lymphocytes % 12 L Reactive Lymphocytes 4 H RBC Morphology Abnorm A Polychromasia Few A Anisocytosis 1+ A 1+ A POC PT PT POC INR INR POC Chloride Chloride Carbon Dioxide 21 L POC Total CO2 POC BUN BUN 63 H Creatinine 2.2 H POC Creatinine Glucose POC Glucose Calcium 7.9 L POC WB Ioniz Calcium AST 39 H Lactate Dehydrogenase 303 H Troponin T C-Reactive Protein Albumin 2.3 L Globulin 3.9 H Albumin/Globulin Ratio 0.6 L 02/19/17 02/18/17 02/18/17 03:38 15:34 15:34 RBC Hgb 9.5 L Hct 28.7 L POC Hct RDW Lymphocytes % Reactive Lymphocytes RBC Morphology Polychromasia Anisocytosis POC PT PT 15.5 H POC INR INR 1.2 H POC Chloride Chloride Carbon Dioxide POC Total CO2 POC BUN BUN 74 H Creatinine 2.4 H POC Creatinine Glucose POC Glucose Calcium 7.8 L POC WB Ioniz Calcium AST Lactate Dehydrogenase Troponin T C-Reactive Protein Albumin Globulin Albumin/Globulin Ratio 02/18/17 02/18/17 02/18/17 09:25 09:22 05:10 RBC Hgb Hct POC Hct RDW Lymphocytes % Reactive Lymphocytes RBC Morphology Polychromasia Anisocytosis POC PT 60.4 H PT 36.9 H 50.3 H POC INR 5.5 H* INR 3.5 H 5.2 H POC Chloride Chloride Carbon Dioxide POC Total CO2 POC BUN BUN Creatinine POC Creatinine Glucose POC Glucose Calcium POC WB Ioniz Calcium AST Lactate Dehydrogenase Troponin T C-Reactive Protein Albumin Globulin Albumin/Globulin Ratio 02/18/17 02/18/17 02/18/17 04:15 04:15 04:15 RBC 2.43 L Hgb 7.9 L Hct 23.8 L POC Hct RDW 16.9 H Lymphocytes % Reactive Lymphocytes RBC Morphology Abnorm A Polychromasia 1+ A Anisocytosis 2+ A POC PT PT POC INR INR POC Chloride Chloride Carbon Dioxide POC Total CO2 POC BUN BUN 84 H Creatinine 2.5 H POC Creatinine Glucose POC Glucose Calcium 7.9 L POC WB Ioniz Calcium AST Lactate Dehydrogenase Troponin T 0.04 H* C-Reactive Protein Albumin Globulin Albumin/Globulin Ratio 02/17/17 02/17/17 02/17/17 20:30 18:06 18:06 RBC Hgb Hct POC Hct 26.0 L RDW Lymphocytes % Reactive Lymphocytes RBC Morphology Polychromasia Anisocytosis POC PT PT 91.2 H POC INR INR 11.0 H* POC Chloride 93 L Chloride Carbon Dioxide POC Total CO2 34 H POC BUN 78 H BUN Creatinine POC Creatinine 2.7 H Glucose POC Glucose 47 L Calcium POC WB Ioniz Calcium 1.04 L AST Lactate Dehydrogenase Troponin T C-Reactive Protein 6.5 H Albumin Globulin Albumin/Globulin Ratio 02/17/17 02/17/17 18:06 18:06 RBC 2.97 L Hgb 9.6 L Hct 29.0 L POC Hct RDW 16.4 H Lymphocytes % Reactive Lymphocytes RBC Morphology Abnorm A Polychromasia Anisocytosis 1+ A POC PT PT POC INR INR POC Chloride Chloride 93 L Carbon Dioxide POC Total CO2 POC BUN BUN 81 H Creatinine 2.5 H POC Creatinine Glucose 64 L POC Glucose Calcium 8.3 L POC WB Ioniz Calcium AST Lactate Dehydrogenase Troponin T C-Reactive Protein Albumin 2.8 L Globulin 3.9 H Albumin/Globulin Ratio 0.7 L Meds: Medications Acetaminophen (Tylenol) 650 mg PO Q4-6HP PRN PRN Reason: PAIN/FEVER > 101 Hydrocodone Bitart/Acetaminophen ([place] 5/325mg) 1 tab PO Q4-6HP PRN PRN Reason: PAIN LEVEL 3-6 Allopurinol (Zyloprim) 200 mg PO DAILY [facility] Dextrose (Dextrose 50%) 0 ml IV UD PRN PRN Reason: Hypoglycemia Diagnostic Test (Pha) (Accu-Chek) 1 each [facility] Last Admin: 02/20/17 12:01 Dose: 1 each Diagnostic Test (Pha) (Accu-Chek) 1 each [facility] Last Admin: 02/20/17 12:04 Dose: Not Given Docusate Sodium (Colace) 100 mg PO BID PRN PRN Reason: Constipation Ferrous Sulfate ([facility]) [facility] Glucose (Insta-Glucose) 15 gm PO PRN PRN PRN Reason: Hypoglycemia Hydralazine HCl (Apresoline) 25 mg PO BID [facility] Piperacillin Sod/Tazobactam (Sod 2.25 gm/ Dextrose) 50 mls @ 100 mls/hr IV Q6H [facility] Last Admin: 02/20/17 12:12 Dose: 100 mls/hr Insulin Glargine (Lantus) 5 unit SQ DAILY [facility] Insulin Human Lispro (Humalog) 0 unit SQ [facility] PRN Reason: Protocol Last Admin: 02/20/17 12:04 Dose: 4 unit Metoprolol Tartrate (Lopressor) 75 mg PO BID [facility] Ondansetron HCl (Zofran) 4 mg IV Q4-6HP PRN PRN Reason: Nausea And Vomiting Oseltamivir Phosphate (Tamiflu) 75 mg PO DAILY [facility] Stop: 02/22/17 09:01 Oxybutynin Chloride (Ditropan Xl) 10 mg PO DAILY [facility] Pantoprazole Sodium (Protonix) 40 mg IV BID [facility] Sodium Chloride (Saline Flush) 10 ml IV Q8 [facility] Medical - PN: A/P - Time Spent With Patient Total time spent is greater than 50% in coordination of care (as documented) at patient's floor/unit and/or counseling patient: 25 - 35 minutes - Narrative A/P Narrative: A/P Narrative: 81-YEAR-OLD MALE PRESENTED 02/17 WITH C/O FEVER AND GENERALIZED WEAKNESS X 2 DAYS. * Upper GI bleed- Stable hemoglobin at 10.4. Secondary to supratherapeutic INR now reversed with vitamin K and K Centra. INR 1.2 down from 11. schedule outpatient endoscopist evaluation at [facility]. continue PPI * blood loss anemia-stable.hemoglobin at 10 * gram-positive bacteremia- contaminant coag-negative staph * Acute viral syndrome on Tamiflu. DC ZosynF Pro calcitonin negative * Paroxysmal atrial fibrillation with RVR- rate controlled. anticoagulation reversed due to upper GI bleed. restart post colonoscopy as outpatient * History of aortic stenosis restart metoprolol once GI bleed resolved * DM type II-A1c 5.7 * Acute and chronic renal failure-creatinine at baseline. Elevated BUN due to GI bleed * prophylaxis SCDs Plan * DC Zosyn * continue PPI * Pre-existing medical condition management as above * colonoscopy at Dr. [facility]'s office in 1 week * restart Coumadin in 1 week * discharge in 48 hours * Aggressive physical therapy
[2017-02-20] MEDS: METOPROLOL TARTRATE 5 MG/5 ML VIAL IV SCH ×3 (17:25→17:47)
[2017-02-20] MEDS ORDERED: METOPROLOL TARTRATE 50 MG TABLET PO ONE (18:00)
[2017-02-20] MEDS: HYDROcodone/APAP 5/325MG TABLET PO PRN (19:42)
[2017-02-20] MEDS: hydrALAZINE 25 MG TABLET PO SCH (19:59)
[2017-02-20] MEDS ORDERED: METOPROLOL TARTRATE 25 MG TABLET PO SCH (21:00)
[2017-02-21 05:29] LABS: Mean Corpuscular HGB Conc 33.4 g/dL (31.0-36.0); Platelet Count 169 K/mcL (140-440); RBC 3.12 M/mcL (4.50-5.90); Red Cell Distribution Width 16.2 % (11.5-14.5)
[2017-02-21 05:36] LABS: ALT/SGPT 25 U/l (0-40); Albumin 2.5 gm/dL (3.2-5.2); Albumin/Globulin Ratio 0.6 (1.0-2.3); Alkaline Phosphatase 133 U/L (39-117); Bilirubin,Direct < 0.2 mg/dL (0.0-0.3); Blood Urea Nitrogen 51 mg/dl (8-23); Gamma Glutamyl Transpeptidase 44 U/L (8-61); Magnesium 2.2 mg/dL (1.6-2.5); Uric Acid 5.2 mg/dL (2.5-8.0)
[2017-02-21 06:09] LABS: Anisocytosis 1+ (NONE SEEN); Band Neutrophils % 1 % (0-10); Basophilic Stippling FEW (NONE SEEN); Basophils % (Manual) 2 % (0-2); Eosinophils % (Manual) 6 % (0-7); Lymphocytes % 23 % (15-49); Monocytes % (Manual) 5 % (1-12); Platelet Estimate NORMAL (NORMAL); RBC Morphology ABNORM (NORMAL); Segmented Neutrophils % 63 % (38-78)
[2017-02-21] MEDS: INSULIN GLARGINE, HUMAN 1 UNIT/0.01 ML SQ SCH (08:44)
[2017-02-21] MEDS: HYDROcodone/APAP 5/325MG TABLET PO PRN (08:44)
[2017-02-21] MEDS: METOPROLOL TARTRATE 50 MG TABLET PO SCH ×2 (08:44→20:42)
[2017-02-21] MEDS: ALLOPURINOL 100 MG TABLET PO SCH (08:44)
[2017-02-21] MEDS: hydrALAZINE 25 MG TABLET PO SCH ×2 (08:45→20:41)
[2017-02-21] MEDS: OSELTAMIVIR PHOSPHATE 75 MG CAPSULE PO SCH (08:45)
[2017-02-21] MEDS: FERROUS SULFATE 325 MG TABLET PO SCH (08:45)
[2017-02-21] MEDS: PANTOPRAZOLE 40 MG VIAL IV SCH ×2 (08:45→20:41)
[2017-02-21] MEDS: INSULIN LISPRO 1 UNIT/0.01 ML UNIT SQ SCH ×4 (08:45→20:40)
[2017-02-21] MEDS: 0.9 % SODIUM CHLORIDE 10 ML SYRINGE IV SCH ×3 (08:46→21:38)
[2017-02-21] MEDS: OXYBUTYNIN CHLORIDE 5 MG TAB.XL.24H PO SCH (08:51)
--- NOTE | 2017-02-21 12:19 | Internal Med Progress Note ---
Medical - PN: Subj Patient information: Note initiated : 02/21/17 at 12:16 pm Service Date, if different from initiated Date: [] Patient: Kevin Albrecht 81 y/o M admitted on 02/17/17 for Fever. Chief Complaint: [] Interval history: 02/17: Admitted to ICU for atrial fibrillation with RVR, SBP 100-110, and fever. HR was around 130's Started on Diltiazem gtt on 5 mg/hr without bolus. After 2 hours MBP 62-65. HR 110. Vasopressin gtt started prn to keep MBP > 60 02/18 Patient is awake, alert No specific complaints Hb dropped from 9.6 to 7.9. Stool is heme positive INR 11 dropped to 5.2 after vit K 2.5 mg. Today give vit K 5 mg, 2 U RBC and consult GI 02/19-no further episodes of GI bleed. Hemoglobin at 10.4. No overnight events. Patient unwilling to participate in physical therapy due to generalized aches. Patient is clearly unable to take care of self and would need assistance/SNF placement. Case management coordinating placement. DC vancomycin in light of coag-negative staph on blood cultures.INR down to 1.2. Blood sugars at goal. improving BUN/creatinine. started on twice daily IV protonic state of upper GI bleed in light of elevated BUN. 02/20- hemoglobin stable at 10. minimal melenic output. no overnight fever or chills. Patient feels at baseline. Complains of generalized aches and pains and resisting to participate in physical therapy. Starting low-dose oral opioid to counter pain while undergoing physical therapy. anticipate discharge to SNF in 48. -02/21- patient doing well. No overnight events. No concerns per staff. Tolerating physical therapy. Ambulating. admitting SNF transfer. Schedule outpatient colonoscopy on discharge. patient may restart anti-coagulation after endoscopy in 1-2 weeks. hemoglobin stable at 10.3.. No further evidence of bleeding. Tachycardia improved on home dose metoprolol - Constitutional Vitals: Vital Signs Temp Pulse Resp BP Pulse Ox 97.8 F 122 H 23 H 118/63 96 02/21/17 08:00 02/21/17 08:00 02/21/17 10:47 02/21/17 08:00 02/21/17 04:02 Period Temp Pulse Resp BP Sys/Mohr Pulse Ox Last 24 Hr 97.8 F-99.9 F 122 20-24 103-141/60-86 96-100 Intake and Output 02/20/17 02/21/17 02/21/17 21:59 05:59 13:59 Intake Total 800 / 800 240 / 240 300 / 300 Output Total 1350 / 1350 365 / 365 Balance -550 / -550 -125 / -125 300 / 300 Weight 267 lb 3.2 oz Intake & Output: Intake & Output 02/20/17 02/21/17 02/21/17 21:59 05:59 13:59 Intake Total 800 / 800 240 / 240 300 / 300 Output Total 1350 / 1350 365 / 365 Balance -550 / -550 -125 / -125 300 / 300 Weight 267 lb 3.2 oz Intake: Oral 800 / 800 240 / 240 300 / 300 Output: Urine Catheter Amount 1125 / 1125 365 / 365 Void Amount 225 / 225 Uretheral ([place]) 225 / 225 Other: Meal Lunch Percent of Meal Consumed 100% General appearance: cooperative, no acute distress, obese Exam: alert oriented nonlabored breathing colostomy brown fecal output No anxiety Nondistended abdomen Medical - PN: Obj Da - Labs CBC & Chem 7: 02/21/17 03:49 02/21/17 03:49 Labs: Abnormal Lab Results 02/21/17 02/21/17 02/20/17 03:49 03:49 04:06 RBC 3.12 L Hgb 10.3 L Hct 30.9 L RDW 16.2 H Lymphocytes % Reactive Lymphocytes RBC Morphology Abnorm A Polychromasia Basophilic Stippling Few A Anisocytosis 1+ A PT INR Carbon Dioxide 21 L BUN 51 H 63 H Creatinine 2.1 H 2.2 H Calcium 8.2 L 7.9 L AST 48 H 39 H Alkaline Phosphatase 133 H Lactate Dehydrogenase 303 H Albumin 2.5 L 2.3 L Globulin 3.9 H 3.9 H Albumin/Globulin Ratio 0.6 L 0.6 L 02/20/17 02/19/17 02/19/17 04:06 05:20 03:38 RBC 3.06 L 3.21 L Hgb 10.0 L 10.4 L Hct 30.0 L 31.1 L RDW 16.3 H 15.9 H Lymphocytes % 12 L Reactive Lymphocytes 4 H RBC Morphology Abnorm A Polychromasia Few A Basophilic Stippling Anisocytosis 1+ A 1+ A PT INR Carbon Dioxide BUN 74 H Creatinine 2.4 H Calcium 7.8 L AST Alkaline Phosphatase Lactate Dehydrogenase Albumin Globulin Albumin/Globulin Ratio 02/18/17 02/18/17 15:34 15:34 RBC Hgb 9.5 L Hct 28.7 L RDW Lymphocytes % Reactive Lymphocytes RBC Morphology Polychromasia Basophilic Stippling Anisocytosis PT 15.5 H INR 1.2 H Carbon Dioxide BUN Creatinine Calcium AST Alkaline Phosphatase Lactate Dehydrogenase Albumin Globulin Albumin/Globulin Ratio Meds: Medications Acetaminophen (Tylenol) 650 mg PO Q4-6HP PRN PRN Reason: PAIN/FEVER > 101 Last Admin: 02/20/17 19:43 Dose: 325 mg Hydrocodone Bitart/Acetaminophen ([place] 5/325mg) 1 tab PO Q4-6HP PRN PRN Reason: PAIN LEVEL 3-6 Last Admin: 02/21/17 08:44 Dose: 1 tab Allopurinol (Zyloprim) 200 mg PO DAILY [facility] Last Admin: 02/21/17 08:44 Dose: 200 mg Dextrose (Dextrose 50%) 0 ml IV UD PRN PRN Reason: Hypoglycemia Diagnostic Test (Pha) (Accu-Chek) 1 each [facility] Last Admin: 02/21/17 11:59 Dose: 1 each Docusate Sodium (Colace) 100 mg PO BID PRN PRN Reason: Constipation Ferrous Sulfate ([facility]ous Sulfate) [facility] Last Admin: 02/21/17 08:45 Dose: 325 mg Glucose (Insta-Glucose) 15 gm PO PRN PRN PRN Reason: Hypoglycemia Hydralazine HCl (Apresoline) 25 mg PO BID [facility] Last Admin: 02/21/17 08:45 Dose: 25 mg Insulin Glargine (Lantus) 5 unit SQ DAILY [facility] Last Admin: 02/21/17 08:44 Dose: 5 unit Insulin Human Lispro (Humalog) 0 unit SQ [facility] PRN Reason: Protocol Last Admin: 02/21/17 12:00 Dose: 2 unit Metoprolol Tartrate (Lopressor) 100 mg PO DAILY [facility] Last Admin: 02/21/17 08:44 Dose: 100 mg Metoprolol Tartrate (Lopressor) 75 mg PO [facility] Ondansetron HCl (Zofran) 4 mg IV Q4-6HP PRN PRN Reason: Nausea And Vomiting Oseltamivir Phosphate (Tamiflu) 75 mg PO DAILY [facility] Stop: 02/22/17 09:01 Last Admin: 02/21/17 08:45 Dose: 75 mg Oxybutynin Chloride (Ditropan Xl) 10 mg PO DAILY [facility] Last Admin: 02/21/17 08:51 Dose: 10 mg Pantoprazole Sodium (Protonix) 40 mg IV BID [facility] Last Admin: 02/21/17 08:45 Dose: 40 mg Sodium Chloride (Saline Flush) 10 ml IV Q8 [facility] Last Admin: 02/21/17 08:46 Dose: Not Given Medical - PN: A/P - Time Spent With Patient Total time spent is greater than 50% in coordination of care (as documented) at patient's floor/unit and/or counseling patient: 25 - 35 minutes - Narrative A/P Narrative: A/P Narrative: 81-YEAR-OLD MALE PRESENTED 02/17 WITH C/O FEVER AND GENERALIZED WEAKNESS X 2 DAYS. * Upper GI bleed- no further hemoglobin drop and serial trending. Secondary to supratherapeutic INR now reversed with vitamin K and K Centra. schedule outpatient endoscopist evaluation at [facility]. continue PPI * supratherapeutic INR- now 1.2 down from 11. * blood loss anemia-stable.hemoglobin at 10.3. * Acute viral syndrome on Tamiflu. * Paroxysmal atrial fibrillation with RVR- rate controlled. anticoagulation reversed due to upper GI bleed. restart post colonoscopy as outpatientin 10-14 days * History of aortic stenosis restart metoprolol once GI bleed resolved * DM type II-A1c 5.7 * Acute and chronic renal failure-creatinine at baseline. Elevated BUN due to GI bleed * prophylaxis SCDs Plan * continue PPI * Pre-existing medical condition management as above * colonoscopy at Dr. Sky's office in 1 week * restart Coumadin in 10-14 days * await SNF transfer * continue physical therapy
[2017-02-22] MEDS: TAMSULOSIN 0.4 MG CAPSULE PO SCH ×3 (00:59→20:57)
[2017-02-22 06:35] LABS: Mean Cell Volume 98.7 fL (80.0-100.0); Mean Corpuscular HGB Conc 33.5 g/dL (31.0-36.0); Mean Corpuscular Hemoglobin 33.1 pg (26.0-34.0); Platelet Count 166 K/mcL (140-440); RBC 2.95 M/mcL (4.50-5.90)
[2017-02-22 06:58] LABS: ALT/SGPT 24 U/l (0-40); Albumin 2.5 gm/dL (3.2-5.2); Albumin/Globulin Ratio 0.6 (1.0-2.3); Alkaline Phosphatase 139 U/L (39-117); Bilirubin,Direct < 0.2 mg/dL (0.0-0.3); Blood Urea Nitrogen 50 mg/dl (8-23); Gamma Glutamyl Transpeptidase 45 U/L (8-61); Magnesium 2.3 mg/dL (1.6-2.5); Uric Acid 5.5 mg/dL (2.5-8.0)
[2017-02-22] MEDS: 0.9 % SODIUM CHLORIDE 10 ML SYRINGE IV SCH ×3 (07:09→20:58)
[2017-02-22 07:53] LABS: Band Neutrophils % 1 % (0-10); Basophils % (Manual) 1 % (0-2); Eosinophils % (Manual) 3 % (0-7); Lymphocytes % 27 % (15-49); Monocytes % (Manual) 3 % (1-12); Platelet Estimate NORMAL (NORMAL); RBC Morphology NORMAL (NORMAL); Segmented Neutrophils % 65 % (38-78)
[2017-02-22] MEDS ORDERED: FUROSEMIDE 40 MG TABLET PO SCH (09:00)
[2017-02-22] MEDS: INSULIN LISPRO 1 UNIT/0.01 ML UNIT SQ SCH ×4 (09:02→20:57)
[2017-02-22] MEDS: INSULIN GLARGINE, HUMAN 1 UNIT/0.01 ML SQ SCH (09:35)
[2017-02-22] MEDS: OSELTAMIVIR PHOSPHATE 75 MG CAPSULE PO SCH (09:35)
[2017-02-22] MEDS: PANTOPRAZOLE 40 MG VIAL IV SCH ×2 (09:35→20:49)
[2017-02-22] MEDS: hydrALAZINE 25 MG TABLET PO SCH ×2 (09:35→20:49)
[2017-02-22] MEDS: OXYBUTYNIN CHLORIDE 5 MG TAB.XL.24H PO SCH (09:35)
[2017-02-22] MEDS: FERROUS SULFATE 325 MG TABLET PO SCH (09:36)
[2017-02-22] MEDS: METOPROLOL TARTRATE 50 MG TABLET PO SCH ×2 (09:36→20:49)
[2017-02-22] MEDS: ALLOPURINOL 100 MG TABLET PO SCH (09:36)
--- NOTE | 2017-02-22 10:16 | Internal Med Progress Note ---
Medical - PN: Subj Patient information: Note initiated : 02/22/17 at 10:11 am Service Date, if different from initiated Date: [] Patient: Kevin Albrecht 81 y/o M admitted on 02/17/17 for Fever. Chief Complaint: [] Interval history: 02/17: Admitted to ICU for atrial fibrillation with RVR, SBP 100-110, and fever. HR was around 130's Started on Diltiazem gtt on 5 mg/hr without bolus. After 2 hours MBP 62-65. HR 110. Vasopressin gtt started prn to keep MBP > 60 02/18 Patient is awake, alert No specific complaints Hb dropped from 9.6 to 7.9. Stool is heme positive INR 11 dropped to 5.2 after vit K 2.5 mg. Today give vit K 5 mg, 2 U RBC and consult GI 02/19-no further episodes of GI bleed. Hemoglobin at 10.4. No overnight events. Patient unwilling to participate in physical therapy due to generalized aches. Patient is clearly unable to take care of self and would need assistance/SNF placement. Case management coordinating placement. DC vancomycin in light of coag-negative staph on blood cultures.INR down to 1.2. Blood sugars at goal. improving BUN/creatinine. started on twice daily IV protonic state of upper GI bleed in light of elevated BUN. 02/20- hemoglobin stable at 10. minimal melenic output. no overnight fever or chills. Patient feels at baseline. Complains of generalized aches and pains and resisting to participate in physical therapy. Starting low-dose oral opioid to counter pain while undergoing physical therapy. anticipate discharge to SNF in 48. -02/21- patient doing well. No overnight events. No concerns per staff. Tolerating physical therapy. Ambulating. admitting SNF transfer. Schedule outpatient colonoscopy on discharge. patient may restart anti-coagulation after endoscopy in 1-2 weeks. hemoglobin stable at 10.3.. No further evidence of bleeding. Tachycardia improved on home dose metoprolol 02/22- patient doing a lot better. No overnight events. No concerns per staff. Ongoing physical therapy. Await SNF transfer. Continue daily PT OT. Anticoagulation on hold. No further bleed. Plan to restart anticoagulation post colonoscopy. - Constitutional Vitals: Vital Signs Temp Pulse Resp BP Pulse Ox 97.3 F 100 H 27 H 105/75 98 02/22/17 04:22 02/21/17 20:00 02/22/17 04:22 02/22/17 04:22 02/22/17 07:53 Period Temp Pulse Resp BP Sys/Mohr Pulse Ox Last 24 Hr 97.3 F-98.0 F 97-100 16-27 102-124/69-105 94-100 Intake and Output 02/21/17 02/22/17 02/22/17 21:59 05:59 13:59 Intake Total 600 / 600 720 / 720 Output Total 675 / 675 Balance 600 / 600 45 / 45 Weight 276 lb 14.4 oz Intake & Output: Intake & Output 02/21/17 02/22/17 02/22/17 21:59 05:59 13:59 Intake Total 600 / 600 720 / 720 Output Total 675 / 675 Balance 600 / 600 45 / 45 Weight 276 lb 14.4 oz Intake: Oral 600 / 600 720 / 720 Output: Urine Catheter Amount 675 / 675 General appearance: cooperative, no acute distress Exam: no anxiety or agitation obese Nonlabored breathing nondistended and nontender abdomen, Colostomy site no erythema Medical - PN: Obj Da - Labs CBC & Chem 7: 02/22/17 03:44 02/22/17 03:44 Labs: Abnormal Lab Results 02/22/17 02/22/17 02/21/17 03:44 03:44 03:49 RBC 2.95 L Hgb 9.8 L Hct 29.1 L RDW 16.0 H RBC Morphology Basophilic Stippling Anisocytosis Carbon Dioxide BUN 50 H 51 H Creatinine 2.0 H 2.1 H Calcium 8.4 L 8.2 L AST 44 H 48 H Alkaline Phosphatase 139 H 133 H Lactate Dehydrogenase 281 H Albumin 2.5 L 2.5 L Globulin 3.9 H 3.9 H Albumin/Globulin Ratio 0.6 L 0.6 L 02/21/17 02/20/17 02/20/17 03:49 04:06 04:06 RBC 3.12 L 3.06 L Hgb 10.3 L 10.0 L Hct 30.9 L 30.0 L RDW 16.2 H 16.3 H RBC Morphology Abnorm A Basophilic Stippling Few A Anisocytosis 1+ A 1+ A Carbon Dioxide 21 L BUN 63 H Creatinine 2.2 H Calcium 7.9 L AST 39 H Alkaline Phosphatase Lactate Dehydrogenase 303 H Albumin 2.3 L Globulin 3.9 H Albumin/Globulin Ratio 0.6 L Meds: Medications Acetaminophen (Tylenol) 650 mg PO Q4-6HP PRN PRN Reason: PAIN/FEVER > 101 Last Admin: 02/20/17 19:43 Dose: 325 mg Hydrocodone Bitart/Acetaminophen ([place] 5/325mg) 1 tab PO Q4-6HP PRN PRN Reason: PAIN LEVEL 3-6 Last Admin: 02/21/17 08:44 Dose: 1 tab Allopurinol (Zyloprim) 200 mg PO DAILY [facility] Last Admin: 02/22/17 09:36 Dose: 200 mg Dextrose (Dextrose 50%) 0 ml IV UD PRN PRN Reason: Hypoglycemia Diagnostic Test (Pha) (Accu-Chek) 1 each [facility] Last Admin: 02/22/17 09:02 Dose: 1 each Docusate Sodium (Colace) 100 mg PO BID PRN PRN Reason: Constipation Ferrous Sulfate (Ferrous Sulfate) 325 mg PO [facility] Last Admin: 02/22/17 09:36 Dose: 325 mg Furosemide (Lasix) 40 mg PO DAILY [facility] Last Admin: 02/22/17 09:35 Dose: 40 mg Glucose (Insta-Glucose) 15 gm PO PRN PRN PRN Reason: Hypoglycemia Hydralazine HCl (Apresoline) 25 mg PO BID [facility] Last Admin: 02/22/17 09:35 Dose: 25 mg Insulin Glargine (Lantus) 5 unit SQ DAILY [facility] Last Admin: 02/22/17 09:35 Dose: 5 unit Insulin Human Lispro (Humalog) 0 unit SQ [facility] PRN Reason: Protocol Last Admin: 02/22/17 09:02 Dose: Not Given Metoprolol Tartrate (Lopressor) 100 mg PO DAILY [facility] Last Admin: 02/22/17 09:36 Dose: 100 mg Metoprolol Tartrate (Lopressor) 75 mg PO [facility] Last Admin: 02/21/17 20:42 Dose: 75 mg Ondansetron HCl (Zofran) 4 mg IV Q4-6HP PRN PRN Reason: Nausea And Vomiting Oxybutynin Chloride (Ditropan Xl) 10 mg PO DAILY [facility] Last Admin: 01/18/18 09:35 Dose: 10 mg Pantoprazole Sodium (Protonix) 40 mg IV BID [facility] Last Admin: 02/22/17 09:35 Dose: 40 mg Sodium Chloride (Saline Flush) 10 ml IV Q8 [facility] Last Admin: 02/22/17 07:09 Dose: 10 ml Tamsulosin HCl (Flomax) 0.4 mg PO HS [facility] Last Admin: 02/22/17 00:59 Dose: 0.4 mg Medical - PN: A/P - Time Spent With Patient Total time spent is greater than 50% in coordination of care (as documented) at patient's floor/unit and/or counseling patient: 15 - 24 minutes - Narrative A/P Narrative: A/P Narrative: 81-YEAR-OLD MALE PRESENTED 02/17 WITH C/O FEVER AND GENERALIZED WEAKNESS X 2 DAYS. * Upper GI bleed- Clinically resolved. Secondary to supratherapeutic INR reversed with vitamin K and K Centra. schedule outpatient endoscopy evaluation at [facility]. continue oral PPI * supratherapeutic INR- now 1.2 down from 11. anticoagulation on hold until colonoscopy * blood loss anemia-no further bleed. Hemoglobin stable at 9.8 * Acute viral syndrome clinically resolved. status post five-day tamiflu. * Paroxysmal atrial fibrillation with intermittent RVR- rate controlled. continue home dose beta alis * History of aortic stenosis -continue metoprolol * DM type II-A1c 5.7.on sliding scale * Acute and chronic renal failure-creatinine at baseline. * prophylaxis SCDs Plan * continue physical therapy * await SNF transfer * continue PPI * Pre-existing medical condition management as above * colonoscopy at Dr. Sky's office in 1 week n discharge * anticoagulation to restart in 10-14 days
[2017-02-22] MEDS ORDERED: TAMSULOSIN 0.4 MG CAPSULE PO SCH (21:00)
[2017-02-23 06:10] LABS: Mean Cell Volume 99.8 fL (80.0-100.0); Mean Corpuscular HGB Conc 32.9 g/dL (31.0-36.0); Mean Corpuscular Hemoglobin 32.8 pg (26.0-34.0); Platelet Count 153 K/mcL (140-440); Red Cell Distribution Width 16.3 % (11.5-14.5)
[2017-02-23 06:37] LABS: ALT/SGPT 24 U/l (0-40); Albumin 2.7 gm/dL (3.2-5.2); Albumin/Globulin Ratio 0.8 (1.0-2.3); Alkaline Phosphatase 127 U/L (39-117); Bilirubin,Direct < 0.2 mg/dL (0.0-0.3); Blood Urea Nitrogen 47 mg/dl (8-23); Gamma Glutamyl Transpeptidase 43 U/L (8-61); Magnesium 2.3 mg/dL (1.6-2.5); Uric Acid 5.6 mg/dL (2.5-8.0)
[2017-02-23] MEDS ORDERED: DEXTROSE 31 GM ORAL.SUSP PO PRN (07:01)
[2017-02-23] MEDS ORDERED: DOCUSATE SODIUM 100 MG CAPSULE PO PRN (07:01)
[2017-02-23] MEDS ORDERED: HYDROcodone/APAP 5/325MG TABLET PO PRN (07:01)
[2017-02-23] MEDS ORDERED: ACETAMINOPHEN 325 MG TABLET PO PRN (07:01)
[2017-02-23] MEDS ORDERED: ONDANSETRON 4 MG/2 ML VIAL IV PRN (07:01)
[2017-02-23] MEDS ORDERED: DEXTROSE 50% 50 ML VIAL IV PRN (07:01)
[2017-02-23 07:10] LABS: Anisocytosis 1+ (NONE SEEN); Band Neutrophils % 1 % (0-10); Eosinophils % (Manual) 4 % (0-7); Lymphocytes % 32 % (15-49); Monocytes % (Manual) 7 % (1-12); Platelet Estimate NORMAL (NORMAL); RBC Morphology ABNORM (NORMAL); Segmented Neutrophils % 56 % (38-78)
[2017-02-23] MEDS ORDERED: FERROUS SULFATE 325 MG TABLET PO SCH (08:00)
[2017-02-23] MEDS: INSULIN LISPRO 1 UNIT/0.01 ML UNIT SQ SCH ×2 (08:13→11:38)
--- NOTE | 2017-02-23 08:57 | Discharge Summary ---
Medical - DS: Prov Patient information: Note initiated : 02/23/17 at 8:54 am Service Date, if different from initiated Date: [] Patient: Kevin Albrecht 81 y/o M admitted on 02/17/17 for Fever. Chief Complaint: [] Date of admission: 02/17/17 22:03 Discharge date: 02/23/17 Primary care physician: Apryl Bravo Consults: 02/22/17 09:11 Consult to Physician [CONS] Routine Comment: Consulting Provider: Aysha Wright Reason For Exam: Physician to Consult Medical - DS: Meds - Discharge Medications Prescriptions: Pantoprazole [Protonix] 40 mg PO BIDAC #60 tab Active and Home Medications: Home Medications Allopurinol [Zyloprim] 200 mg PO DAILY 05/29/15 [History Confirmed 02/18/17 Last Taken 02/17/17 08:00] Furosemide [Lasix] 40 mg PO DAILY 05/29/15 [History Confirmed 02/18/17 Last Taken 02/17/17 12:00] Levothyroxine [Synthroid] 25 mcg PO DAILY 05/29/15 [History Confirmed 01/03/17 Last Taken 02/17/17 07:00] Oxybutynin Chloride [Oxybutynin Chloride ER] 10 mg PO DAILY 05/29/15 [History Confirmed 02/18/17 Last Taken Unknown] Simvastatin [Zocor] 40 mg PO HS 05/29/15 [History Confirmed 01/03/17 Last Taken 02/16/17 22:00] hydrALAZINE [Apresoline] 25 mg PO BID 05/29/15 [History Confirmed 02/18/17 Last Taken 02/17/17 08:00] Accu-Chek 1 each FS ACHS strip 01/08/17 [Rx Confirmed 02/18/17 Last Taken 02/17 12:00] Acetaminophen [Tylenol] 650 mg PO Q6HP PRN tablet 01/08/17 [Rx Confirmed Last Taken Unknown] Docusate Sodium [Colace] 100 mg PO BID PRN capsule 01/08/17 [Rx Confirmed 02/18 Last Taken 02/16/17 08:00] Insulin Glargine, Human [Lantus] 5 unit SQ DAILY unit 01/08/17 [Rx Confirmed Last Taken 02/17/17 08:00] Insulin Lispro [Humalog] See Protocol SQ ACHS #1 unit 01/08/17 [Rx Confirmed Last Taken 02/17/17 08:00] Metoprolol Tartrate [Lopressor] 75 mg PO BID tablet 01/08/17 [Rx Confirmed Last Taken Unknown] QUEtiapine [Seroquel] 25 mg PO HS tablet 01/08/17 [Rx Last Taken Unknown] Ferrous Sulfate 325 mg PO DAILY 02/18/17 [History Confirmed 02/18/17 Last Taken 02/17/17 08:00] Glimepiride 1 mg PO DAILY 02/18/17 [History Confirmed 02/18/17 Last Taken 08:00] Pantoprazole [Protonix] 40 mg PO BIDAC #60 tab 02/23/17 [Rx Last Taken Unknown] Medical - DS: Hosp Hospital course: DISCHARGE DIAGNOSIS * Upper GI bleed- Clinically resolved. Secondary to supratherapeutic INR reversed with vitamin K and K Centra. On twice daily PPI. schedule outpatient endoscopy evaluation at [facility]. transfer to [facility] * supratherapeutic INR- now 1.2 down from 11. anticoagulation on hold until colonoscopy. Can be restarted in 7-10 days as per discretion of SNF physician/ PCP * blood loss anemia-no further bleed. Hemoglobin stable at 9.8 * Acute viral syndrome clinically resolved. status post five-day tamiflu. * Paroxysmal atrial fibrillation with intermittent RVR- rate controlled. continue home dose beta alis. anticoagulation to be restarted by PCP * History of aortic stenosis -continue metoprolol * DM type II-A1c 5.7.on sliding scale * Acute and chronic renal failure-resolved and currently creatinine at baseline. BRIEF HOSPITAL COURSE Mr. Albrecht is a 81 year old M 02/17: Admitted to ICU for atrial fibrillation with RVR, SBP 100-110, and fever. HR was around 130's Started on Diltiazem gtt on 5 mg/hr without bolus. After 2 hours MBP 62-65. HR 110. Vasopressin gtt started prn to keep MBP > 60 02/18 Patient is awake, alert No specific complaints Hb dropped from 9.6 to 7.9. Stool is heme positive INR 11 dropped to 5.2 after vit K 2.5 mg. Today give vit K 5 mg, 2 U RBC and consult GI 02/19-no further episodes of GI bleed. Hemoglobin at 10.4. No overnight events. Patient unwilling to participate in physical therapy due to generalized aches. Patient is clearly unable to take care of self and would need assistance/SNF placement. Case management coordinating placement. DC vancomycin in light of coag-negative staph on blood cultures.INR down to 1.2. Blood sugars at goal. improving BUN/creatinine. started on twice daily IV protonic state of upper GI bleed in light of elevated BUN. 02/20- hemoglobin stable at 10. minimal melenic output. no overnight fever or chills. Patient feels at baseline. Complains of generalized aches and pains and resisting to participate in physical therapy. Starting low-dose oral opioid to counter pain while undergoing physical therapy. anticipate discharge to SNF in 48. -02/21- patient doing well. No overnight events. No concerns per staff. Tolerating physical therapy. Ambulating. admitting SNF transfer. Schedule outpatient colonoscopy on discharge. patient may restart anti-coagulation after endoscopy in 1-2 weeks. hemoglobin stable at 10.3.. No further evidence of bleeding. Tachycardia improved on home dose metoprolol 02/22- patient doing a lot better. No overnight events. No concerns per staff. Ongoing physical therapy. Await SNF transfer. Continue daily PT OT. Anticoagulation on hold. No further bleed. Plan to restart anticoagulation post colonoscopy. 02/23-Patient doing a lot better. Ongoing physical therapy. Transferring to SNF. Continue anticoagulation on hold until colonoscopy. Schedule colonoscopy in [address] Sky. Case discussed with patient's primary care physician Apryl Bravo who will continue to follow as outpatient. Discussed plan of treatment. We did decide instructions and medications as below. Continue PPI twice daily for 30 days oral by mouth daily in light of upper GI bleed Discharge diagnosis: . - Time Spent with Patient Total time spent providing and/or coordinating discharge services: Greater than 30 minutes Medical - DS: Exam - Constitutional Vitals: Vital Signs Temp Pulse Pulse Resp BP Pulse Ox 02/23/17 04:00 97.4 F 24 H 113/83 98 02/23/17 00:01 98.4 F 19 98/82 98 02/22/17 23:19 20 110/74 92 02/22/17 20:01 98.4 F 27 H 108/68 100 02/22/17 20:00 90 98 02/22/17 17:04 27 H 100 02/22/17 16:11 97.3 F 91 H 23 H 117/83 100 02/22/17 12:38 19 02/22/17 12:02 23 H 107/63 02/22/17 11:57 20 104/67 02/22/17 11:54 97.0 F 86 26 H 104/67 99 02/22/17 11:02 18 Intake and Output 02/22/17 02/23/17 02/23/17 21:59 05:59 13:59 Intake Total 450 / 450 720 / 720 Output Total 401 / 401 1100 / 1100 Balance 49 / 49 -380 / -380 Intake: Oral 450 / 450 720 / 720 Output: Urine Catheter Amount 750 / 750 Void Amount 200 / 200 300 / 300 # of times incontinent of urine 1 / 1 Stool 200 / 200 50 / 50 Other: Meal Dinner Percent of Meal Consumed 100% Feeding Ability Assist with Tray Set Up # Voids 1 Weight 281 lb 3.2 oz Medical - DS: Data Labs on day of discharge: Labs from last 24 hours 02/23/17 02/23/17 03:40 03:40 WBC 5.3 RBC 2.90 L Hgb 9.5 L Hct 29.0 L MCV 99.8 MCH 32.8 MCHC 32.9 RDW 16.3 H Plt Count 153 MPV 8.1 Total Counted 100 Seg Neutrophils % 56 Band Neutrophils % 1 Lymphocytes % 32 Monocytes % (Manual) 7 Eosinophils % (Manual) 4 Platelet Estimate Normal RBC Morphology Abnorm A Anisocytosis 1+ A Sodium 139 Potassium 4.5 Chloride 103 Carbon Dioxide 27 Anion Gap 9.0 BUN 47 H Creatinine 2.1 H GFR Calculation 29 Glucose 101 Uric Acid 5.6 Calcium 8.2 L Phosphorus 3.2 Magnesium 2.3 Total Bilirubin 0.3 Direct Bilirubin < 0.2 GGT 43 AST 44 H ALT 24 Alkaline Phosphatase 127 H Lactate Dehydrogenase 219 Total Protein 6.1 Albumin 2.7 L Globulin 3.4 Albumin/Globulin Ratio 0.8 L Triglycerides 102 Medical - DS: A/P - Patient/Caregiver Discharge Instructions Activity: as per physical therapy, increase activity as tolerated Diet: Regular Diet Additional Instructions: Follow-up PCP in 5 days hold Coumadin for one week, to be restarted by primary care physician after colonoscopy Schedule colonoscopy/upper endoscopy with Dr. Sky in 1 week for evaluation of GI bleed I recommend SNF physician to check CBC BMP UA as a posthospital follow-up in 1 week. continue PPI twice daily for 30 days CPAP at home settings Continue fall precautions PT OT eval and treatment All meals on chair sitting upright at 90 degrees to prevent aspiration Return to ER if bloody stools Continue diet and activity as advised Discussed importance of medication adherence Please review medication list with patient prior to discharge Please schedule follow-up with PCP/Providers prior to discharge and provide printouts Portions of this chart may have been created with [employer] voice recognition software. Occasional wrong-word or ?sound-like? substitutions may have occurred due to the inherent limitations of voice recognition software. Please read the chart carefully and recognize, using context, where the substitutions have occurred. CC- PCP Prescriptions: Pantoprazole [Protonix] 40 mg PO BIDAC #60 tab - Follow up Plan Follow up with: Apryl Bravo MD [Primary Care Provider] - Disposition: Xfer SNF Prognosis: Fair Rehab Potential: Fair I certify that the patient requires SNF services: Yes Overall status at discharge: patient is progressing back to baseline
[2017-02-23] MEDS ORDERED: OXYBUTYNIN CHLORIDE 5 MG TAB.XL.24H PO SCH (09:00)
[2017-02-23] MEDS ORDERED: PANTOPRAZOLE 40 MG VIAL IV SCH (09:00)
[2017-02-23] MEDS ORDERED: hydrALAZINE 25 MG TABLET PO SCH (09:00)
[2017-02-23] MEDS ORDERED: ALLOPURINOL 100 MG TABLET PO SCH (09:00)
[2017-02-23] MEDS ORDERED: INSULIN GLARGINE, HUMAN 1 UNIT/0.01 ML SQ SCH (09:00)
[2017-02-23] MEDS ORDERED: METOPROLOL TARTRATE 50 MG TABLET PO SCH ×2 (09:00→21:00)
[2017-02-23] MEDS ORDERED: FUROSEMIDE 40 MG TABLET PO SCH (09:00)
[2017-02-23] MEDS ORDERED: 0.9 % SODIUM CHLORIDE 10 ML SYRINGE IV SCH (14:00)
[2017-02-23] MEDS ORDERED: TAMSULOSIN 0.4 MG CAPSULE PO SCH (21:00)
== END 2017-02-23 12:10 | DRG 813 ==
LOC: ED 17:44 → ICU 22:03
PROVIDERS: ADMIT Specialist; ATTEND Internal Medicine

== ENCOUNTER 2017-03-16 00:12 | Inpatient (IN) ==
--- NOTE | 2017-03-16 00:38 | Emergency Department Note ---
General Adult HPI - General Chief complaint: Recheck/Abnormal Lab/Rx Stated complaint: recheck Time Seen by Provider: 03/16/17 00:19 Source: EMS Mode of arrival: EMS Limitations: no limitations - History of Present Illness HPI Narrative: 81-year-old male with a history of a colostomy for the past 12 years1. Colon cancer. referred Over by the senior care in which patient has had not had a stool for the past 48 hours. Patient himself denies any pain or problems. and has some dementia issues is not a reliable historian. Since else's. He has no problems would like to go home. Was no fluid in the colostomy bag at this time - Related Data Home Medications Medication Instructions Recorded Confirmed Allopurinol [Zyloprim] 200 mg PO DAILY 05/29/15 02/18/17 Furosemide [Lasix] 40 mg PO DAILY 05/29/15 02/18/17 Levothyroxine [Synthroid] 25 mcg PO DAILY 05/29/15 01/03/17 Oxybutynin Chloride [Oxybutynin 10 mg PO DAILY 05/29/15 02/18/17 Chloride ER] Simvastatin [Zocor] 40 mg PO HS 05/29/15 01/03/17 hydrALAZINE [Apresoline] 25 mg PO BID 05/29/15 02/18/17 Ferrous Sulfate 325 mg PO DAILY 02/18/17 02/18/17 Glimepiride 1 mg PO DAILY 02/18/17 02/18/17 Previous Rx's Medication Instructions Recorded Accu-Chek 1 each FS ACHS strip 01/08/17 Acetaminophen [Tylenol] 650 mg PO Q6HP PRN tablet 01/08/17 Docusate Sodium [Colace] 100 mg PO BID PRN capsule 01/08/17 Insulin Glargine, Human [Lantus] 5 unit SQ DAILY unit 01/08/17 Insulin Lispro [Humalog] See Protocol SQ ACHS #1 unit 01/08/17 Metoprolol Tartrate [Lopressor] 75 mg PO BID tablet 01/08/17 QUEtiapine [Seroquel] 25 mg PO HS tablet 01/08/17 Pantoprazole [Protonix] 40 mg PO BIDAC #60 tab 02/23/17 Allergies Allergy/AdvReac Type Severity Reaction Status Date / Time No Known Drug Allergies Allergy Verified 03/10/17 12:51 Review of Systems All systems ED: reviewed and negative except as stated. Constitutional: Denies: fever, chills Eyes: Denies: eye pain ENT ED: Denies: ear pain Cardiovascular: Denies: chest pain Respiratory: Denies: shortness of breath, cough Gastrointestinal: Reports: other (no stool in colostomy bag). Denies: abdominal pain, nausea, vomiting Genitourinary: Denies: dysuria, frequency Musculoskeletal: Denies: back pain, joint swelling Integumentary: Denies: rash, lesions Neurological: Denies: headache, weakness Psychiatric: Denies: anxiety, depression Endocrine: Denies: fatigue Hematological/Lymphatic: Denies: easy bleeding Past Medical History - Past Medical History Medical history: Reports: arthritis, atrial fibrillation, cancer (colon), coronary artery disease, DM, GERD, hyperlipidemia, hypertension, hypothyroidism , obesity, osteoporosis, peripheral artery disease, renal disease (Baseline GFR 20s), other (Gout, aortic stenosis) Surgical history ED: Reports: cancer surgery, colostomy, orthopedic, other Family history: Reports: non-contributory - Social History smoking status: Never smoker Alcohol use: Reports: None Drug use: Reports: none Physical Exam Limitations: no limitations General appearance: alert Head: atraumatic Eye: Present: normal appearance, PERRL ENT: normal exam, normal oropharynx, mucous membranes moist Neck: Present: normal inspection, full ROM, trachea midline Chest: Present: normal inspection, symmetric chest wall rise. Absent: tenderness Respiratory: Present: normal lung sounds bilaterally, respiratory distress. Absent: wheezes, stridor Cardiovascular: Present: regular rate, normal rhythm Abdominal: Present: soft, distention Extremities: Present: normal inspection, full ROM. Absent: tenderness Back: Present: normal inspection, full ROM Neurological: Present: alert, reflexes normal. Absent: motor sensory deficit Course Vital Signs Temperature 98.7 F 03/16/17 00:14 Pulse Rate 115 H 03/16/17 00:14 Respiratory Rate 19 03/16/17 00:14 Blood Pressure 94/81 03/16/17 00:14 Pulse Oximetry (%) 100 03/16/17 00:14 Temperature 98.7 F 03/16/17 00:14 Pulse Rate 115 H 03/16/17 01:04 Respiratory Rate 24 H 03/16/17 00:26 Blood Pressure 109/69 03/16/17 01:04 Pulse Oximetry (%) 99 03/16/17 01:04 Medical Decision Making - MDM Narrative Medical decision making narrative: CT AND XRAY REVEAL PARASTOMAL HERNIA WITH SBO. WBC 7900 BUN 45 CR 2.8( CHRONIC).dR [place] CONSULTED AND PATIENT TO BE ADMITTED WITH HOSPITALIST CONSULT. STARTED ON ZOSYN AND N-G TUBE PER DR CHINCHILLA. - Lab Data Result diagrams: 03/16/17 00:30 Lab Results 03/16/17 03/16/17 03/16/17 Range/Units 00:30 00:30 01:00 WBC 7.9 (4.5-11.0) K/mcL RBC 2.97 L (4.50-5.90) M/mcL Hgb 9.7 L (13.5-16.5) g/dL Hct 29.5 L (41.0-55.0) % POC Hct 29.0 L (41.0-55.0) % MCV 99.5 (80.0-100.0) fL MCH 32.7 (26.0-34.0) pg MCHC 32.8 (31.0-36.0) g/dL RDW 17.3 H (11.5-14.5) % Plt Count 191 (140-440) K/mcL MPV 8.2 (7.4-10.4) fL Total Counted 100 Seg Neutrophils % 58 (38-78) % Band Neutrophils % 6 (0-10) % Lymphocytes % 26 (15-49) % Monocytes % (Manual) 6 (1-12) % Eosinophils % (Manual) 4 (0-7) % Platelet Estimate Normal (NORMAL) RBC Morphology Abnormal (NORMAL) Polychromasia Few A (NONE SEEN) Anisocytosis 1+ A (NONE SEEN) POC PT 13.0 (11.9-14.5) sec POC INR 1.1 (0.9-1.2) POC Sodium 139 (133-145) mmol/L POC Potassium 3.9 (3.3-5.1) mmol/L POC Chloride 97 (96-108) mmol/L POC Total CO2 32 H (22-30) mmol/L POC BUN 45 H (8-23) mg/dl POC Creatinine 2.7 H (0.7-1.2) mg/dl POC Glucose 79 (70-105) mg/dL POC WB Ioniz Calcium 1.09 L (1.16-1.32) mmol/L Disposition Pt seen by HOME CARE SCHEDULER/PA only: No Clinical Impression: 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
[2017-03-16 01:10] LABS: Mean Cell Volume 99.5 fL (80.0-100.0); Mean Corpuscular HGB Conc 32.8 g/dL (31.0-36.0); Mean Corpuscular Hemoglobin 32.7 pg (26.0-34.0); Platelet Count 191 K/mcL (140-440); RBC 2.97 M/mcL (4.50-5.90); Red Cell Distribution Width 17.3 % (11.5-14.5)
[2017-03-16 01:40] LABS: Anisocytosis 1+ (NONE SEEN); Band Neutrophils % 6 % (0-10); Eosinophils % (Manual) 4 % (0-7); Lymphocytes % 26 % (15-49); Monocytes % (Manual) 6 % (1-12); Platelet Estimate NORMAL (NORMAL); RBC Morphology ABNORMAL (NORMAL); Segmented Neutrophils % 58 % (38-78)
[2017-03-16] MEDS ORDERED: LIDOCAINE JEL 2% 1 TUBE 30GM TOPICAL ONE (02:14)
[2017-03-16] MEDS ORDERED: ONDANSETRON 4 MG/2 ML VIAL IV PRN (02:27)
[2017-03-16] MEDS: 0.9 % SODIUM CHLORIDE 1,000 ML IV SCH ×4 (03:50→23:58)
[2017-03-16] MEDS: PIPERACILLIN SODIUM/TAZOBACTAM 3.375 GM in DEXTROSE 5% IN WATER 50 ML IV SCH ×4 (03:56→22:01)
--- NOTE | 2017-03-16 05:49 | XRay Report ---
CLINICAL INFORMATION: NG placement COMPARISON: 03/10/2017 FINDINGS: Moderate cardiomegaly is unchanged. Mediastinum and pulmonary vessels are normal. Small patchy bibasilar infiltrates have worsened with small bilateral pleural effusions IMPRESSION: Small patchy bibasilar infiltrates and effusions worsening. Stable cardiomegaly - no evidence CHF NG tip is off the edge of the film but extends at least to the gastric body and should be good position Interpreted and Authenticated by: Gene Capellan 03/16/17
--- NOTE | 2017-03-16 05:50 | XRay Report ---
CLINICAL INFORMATION: NG placement COMPARISON: 03/16/2017 FINDINGS: NG tip is in the gastric body. No free air. Stool gas pattern is grossly normal IMPRESSION: NG tube overlies the gastric body Interpreted and Authenticated by: Gene Capellan 03/16/17
--- NOTE | 2017-03-16 06:06 | XRay Report ---
CLINICAL INFORMATION: Abdominal pain and distention with no drainage from colostomy bag COMPARISON: 07/28/2014. FINDINGS: Moderate stool within the colon but the stomach, small and large bowel appear normal in caliber. Lateral view was obtained and there is marked protrusion of the anterior abdominal wall. The possibility of a large hernia is not excluded on the basis of plain film. Follow-up CT to be performed. No free air or soft tissue mass. IMPRESSION: No definite abnormality. Marked protrusion of abdominal wall may represent abdominal wall laxity or possibly a large hernia. Please see follow-up abdomen and pelvic CT Interpreted and Authenticated by: Gene Capellan 03/16/17
[2017-03-16] MEDS ORDERED: METOPROLOL TARTRATE 5 MG/5 ML VIAL IV PRN (07:42)
[2017-03-16] MEDS ORDERED: DIATRIZOATE MEGLU/DIATRIZO SOD 30 ML BOTTLE PO ONE (10:29)
--- NOTE | 2017-03-16 10:32 | Internal Medicine Consult Note ---
Medical - CN: HPI - Data of Consult Consult date: 03/16/17 Requesting Physician: Fred Vivas MD Primary Care Provider: Apryl Bravo Family Provider: Apryl Bravo - Consult Narrative Reason for consult: Medical Management History of present illness: Mr. Albrecht is a 81 year old Male with h/o colostomy, due to h?o ca colon, who is a [facility] resident presents to the ER overnight with complaints of pain around her stoma site for the last 2 days, no stool output in the stoma bag for 2 days. 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 The patient notes that for the last 2 days he has noticed pain around the stomal region, moderate to severe, may be aggravated by some food but not really sure. He denies any other complaints. The patient noted that there has been no stomal output and that's why the [facility] sent him here for evaluation. The patient was admitted under General surgery and medicine was asked to consult for management of chronic medical problems. By the time of my evaluation, the patient stoma was working again and there was liquid stool in the bag. The patient has a history of diabetes, severe aortic stenosis, chronic kidney disease, he denies any history of coronary artery disease, stroke. He has poor baseline function status. He is able to walk a few feet with the aid of a walker. He denies any active chest pain. The patient denies any headache, dizziness, difficulty in swallowing or hearing. Denies any shortness of breath. Denies any cough. Denies any nausea , vomiting, he admits to having some pain around the stoma site were no generalized abdominal pain or distention. He has no bladder complaints. Denies any swelling in the legs. Denies any joint pain. The patient was recently admitted for upper GI bleed due to supratherapeutic INR ,he was supposed to follow up with Dr. MUNROE for an EGD scope. He and I not sure if that was done. Nonetheless, the stomal output shows brown stools and the hemoglobin is stable. In the emergency room, the patient had a CT scan of the abdomen done which showed bowel loops herniated around the stoma causing obstruction, as well as small bowel obstruction. The patient was therefore admitted to the hospital for further management. NG tube was placed. CC: Fred Vivas MD All systems: reviewed and no additional remarkable complaints except as stated ( as per HPI) Medical - CN: [facility] Medical history: Medical History (Last Reviewed 02/17/17 @ 22:20 by Aysha Wright MD) Contusion of left knee (Acute) Degenerative joint disease (Acute) DM CKd CHF severe h/o Ca colon Anemia Paroxysmal Afib. HJTN bph gout Surgical history: h./o colectomy 12 yrs ago, pt notes 27 yrs Pertinent family history: father, brother with parkinsons mother with multiple sclerosis, HTN Brother CAd Social history: [place] resident smoker ex, stopped in college no etoh no recreational drugs. Medical - CN: Meds Home Medications Medication Instructions Recorded Confirmed Type Allopurinol [Zyloprim] 200 mg PO DAILY 05/29/15 03/16/17 History Furosemide [Lasix] 40 mg PO DAILY 05/29/15 03/16/17 History Levothyroxine [Synthroid] 25 mcg PO DAILY 05/29/15 03/16/17 History Simvastatin [Zocor] 40 mg PO HS 05/29/15 03/16/17 History Accu-Chek 1 each FS ACHS strip 01/08/17 03/16/17 Rx Acetaminophen [Tylenol] 650 mg PO Q6HP PRN tablet 01/08/17 03/16/17 Rx Docusate Sodium [Colace] 100 mg PO BID PRN capsule 01/08/17 03/16/17 Rx Insulin Glargine, Human [Lantus] 5 unit SQ DAILY unit 01/08/17 03/16/17 Rx Insulin Lispro [Humalog] See Protocol SQ ACHS #1 unit 01/08/17 03/16/17 Rx Ferrous Sulfate 325 mg PO DAILY 02/18/17 03/16/17 History Glimepiride 1 mg PO DAILY 02/18/17 03/16/17 History Pantoprazole [Protonix] 40 mg PO BIDAC #60 tab 02/23/17 03/16/17 Rx Amoxicillin/Potassium Clav 500 mg PO BID 03/16/17 03/16/17 History [Augmentin] Glucagon,Human Recombinant 1 mg IJ ONCE PRN 03/16/17 03/16/17 History [Glucagon Emergency Kit] Metoprolol Tartrate [Lopressor] 75 mg PO HS 03/16/17 03/16/17 History Metoprolol Tartrate [Lopressor] 100 mg PO DAILY 03/16/17 03/16/17 History Nystatin [Nyata] 100,000 unit TP TID 03/16/17 03/16/17 History Warfarin [Coumadin] 3 mg PO HS 03/16/17 03/16/17 History Allergies Allergy/AdvReac Type Severity Reaction Status Date / Time No Known Drug Allergies Allergy Verified 03/10/17 12:51 Medical - CN: Exam - Constitutional Vitals: Temp Pulse Resp BP Pulse Ox 97 F 105 H 18 118/70 94 03/16/17 06:38 03/16/17 03:26 03/16/17 06:38 03/16/17 06:38 03/16/17 06:38 Exam: GENERAL: The patient is a well-developed, well-nourished in no apparent distress. Is alert and oriented x3. morbidly obese, VITAL SIGNS: Reviewed and as noted elsewhere. HEENT: Head is normocephalic and atraumatic. Extraocular muscles are intact. Pupils are equal, round, and reactive to light. Nares appeared normal. Mouth appears any without lesions. Mucous membranes are moist. NECK: Normal to inspection, Supple, No lymphadenopathy or thyromegaly. short neck LUNGS: Air entry equal on both sides, no wheezing, crackles or rhonchi noted. No accessory muscles of respiration ant exam only, pt did not move for full exam. HEART: Regular rate and rhythm normal, poor heart sounds, unable to auscultate much, did have gurgling bowel sounds ABDOMEN: Soft, nontender, and nondistended. large panuus Positive bowel sounds. No hepatosplenomegaly was noted. s adamaris with atleast 500cc of liquid brown stools EXTREMITIES: No cyanosis, clubbing, rash, lesions or edema. venous stasis, NEUROLOGIC: Cranial nerves II through XII are grossly intact. Motor and Sensory System Grossly Intact PSYCHIATRIC: Normal affect, Normal Mood. Appropriate Behavior. SKIN: decub wounds in back, see pic on file, No jaundice, No rash noted. Medical - CN: Result - Labs CBC & Chem 7: 03/16/17 00:30 Labs: Short CBC 03/16/17 Range/Units 00:30 WBC 7.9 (4.5-11.0) K/mcL Hgb 9.7 L (13.5-16.5) g/dL Hct 29.5 L (41.0-55.0) % Plt Count 191 (140-440) K/mcL Medical - CN: A/P - Narrative A/P Narrative: A/P parastomal hernia with SBO: management as per Gen surgery DM: NPO status, SSI for now, CKD : Creat 2.7,. on POC creat, slightly worse than baseline, on IVF for now. Afib Paroxysmal: On coumadin for anticoagulation, INR is subtherapeutic, rate controlled, off meds due to NPO status, resume metoprolol when able, prn IV metoprolol if goes in rvr HTN: Off oral meds for now, resume when able, bp st able Morbid obesity: weight loss needed Severe Aortic stenosis: 0.8cms on Aortic area on last echo, pt has poor functional status, but denies any syncope or chest pain. Monitor Pre op eval: given poor f unctional status, , DM, CKD, advanced age, he remains high risk for surgery, but there are no modifiable risk factors present. Pt has been educated and explained about his cardiac risk factors should he decide for surgery. EKG interpreted by Cardiology reviewed. Anemia/ REcent GIB: hb stable, INr stable, not sure if he underwent EGD, on ppi for now, continue to monitor Gout, on allopuriol will continue once able to tolerate po DVT SCD patient has chr decub ulcers, will need wound care for same, TAPS system ordered , Gen surgery can provide wound care, and therefore will not consult wound care yet, may need a referral at discharge. BPH patel in place for now.
[2017-03-16] MEDS ORDERED: DEXTROSE 50% 50 ML VIAL IV PRN (10:42)
[2017-03-16 11:11] LABS: Basophils # (Auto) 0 K/mcL (0.0-0.3); Basophils % (Auto) 0.4 % (0.0-2.0); Eosinophils # (Auto) 0.5 K/mcL (0.0-0.7); Eosinophils % (Auto) 6.8 % (0.0-7.0); Granulocytes % (Auto) 56.3 % (38.0-78.0); Lymphocytes # (Auto) 1.9 K/mcL (1.5-4.8); Lymphocytes % (Auto) 25.4 % (15.5-49.0); Mean Cell Volume 99.6 fL (80.0-100.0); Mean Corpuscular Hemoglobin 32.8 pg (26.0-34.0); Monocytes # (Auto) 0.8 K/mcL (0.1-0.9); Monocytes % (Auto) 11.1 % (1.0-12.0); Platelet Count 176 K/mcL (140-440); RBC 2.99 M/mcL (4.50-5.90); Red Cell Distribution Width 16.9 % (11.5-14.5)
[2017-03-16 11:25] LABS: ALT/SGPT 16 U/l (0-40); Albumin 2.7 gm/dL (3.2-5.2); Albumin/Globulin Ratio 0.7 (1.0-2.3); Alkaline Phosphatase 167 U/L (39-117); Bilirubin,Direct 0.2 mg/dL (0.0-0.3); Blood Urea Nitrogen 45 mg/dl (8-23); Gamma Glutamyl Transpeptidase 42 U/L (8-61); Uric Acid 6.6 mg/dL (2.5-8.0)
[2017-03-16] MEDS ORDERED: INSULIN LISPRO 1 UNIT/0.01 ML UNIT SQ SCH (11:30)
[2017-03-16] MEDS: INSULIN LISPRO 1 UNIT/0.01 ML UNIT SQ SCH ×3 (11:53→23:56)
--- NOTE | 2017-03-16 16:34 | General Surg History&Physical ---
History of Present Illness Patient information: Note initiated : 03/16/17 at 4:31 pm Service Date, if different from initiated Date: [] Patient: Kevin Albrecht a 81 y/o M admitted on 03/16/17 for Recheck. Chief Complaint: [] HPI: Mr. Albrecht is a 81 year old M who was admitted for partial intestinal obstruction. The patient was transferred from [facility] because he did not have any output via his colostomy for over 48 hours. He did not have gas or stool. He was seen in the emergency room and CT revealed a markedly dilated parastomal hernia with multiple loops of small bowel and colon incarcerated in the hernia sac. Though it was initially read as intestinal obstruction the CT actually shows that there is gas in the bowel that is in the hernia sac and there are loops of bowel for there is gas exiting the hernia sac. This suggests that there is not complete obstruction. The patient is asymptomatic and will have small bowel follow-through to confirm that he does not have complete obstruction. Based on his multiple comorbidities the patient is not a candidate for operative treatment of his hernia on an elective basis. Review of Systems - Constitutional fatigue, malaise, snoring, stops breathing during sleep, weakness, weight gain - EENT Nose, mouth and throat: headache(s), no neck pain, no sinus pain, no vertigo - Cardiovascular dyspnea, dyspnea on exertion, irregular heart rhythm, palpatations, pedal edema , rapid heart rate, no chest pain with activity - Respiratory dyspnea on exertion, wheezing, chest congestion, excessive phlegm production - Gastrointestinal abdominal pain, change in stool character, constipation, nausea, no vomiting - Genitourinary difficulty urinating, urinary incontinence, other (Indwelling Torres catheter) - Musculoskeletal abnormal gait, arthralgias, muscle cramps, muscle weakness, stiffness, other ( Patient is bedridden due to severe degenerative joint disease) - Integumentary non-healing lesions, pruritus, rash, sores, other (Multiple superficial skin abrasions and decubiti; intertrigo beneath abdominal panniculus) - Neurological abnormal gait, confusion, memory loss, weakness, other (Unable to ambulate) - Psychiatric depression, memory loss - Endocrine fatigue, heat intolerance, palpitations - Hematologic/Lymphatic easy bleeding, easy bruising, lymphadenopathy, other (Chronic Coumadin therapy) - Allergic/Immunologic no tongue swelling, no throat swelling, no uticaria, no wheezing, no lip swelling Past History Past medical history: Chronic atrial fibrillation Severe aortic stenosis with aortic valve cross-sectional area 1 cm Severe degenerative joint disease Diabetes mellitus type 2 Hypertension History of colon cancer status post resection Chronic kidney disease 3 Chronic obstructive sleep apnea Chronic anemia Chronic thrombocytopenia Progressive dementia Urinary incontinence with indwelling catheter Coronary artery disease Past surgical history: Partial colectomy with colostomy Past family history: Multiple sclerosis Parkinsonism Diabetes mellitus Hypertension Coronary artery disease Past social history: Former tobacco use Former alcohol use Never drug use Medications and Allergies Home Medications Medication Instructions Recorded Confirmed Type Allopurinol [Zyloprim] 200 mg PO DAILY 05/29/15 03/16/17 History Furosemide [Lasix] 40 mg PO DAILY 05/29/15 03/16/17 History Levothyroxine [Synthroid] 25 mcg PO DAILY 05/29/15 03/16/17 History Simvastatin [Zocor] 40 mg PO HS 05/29/15 03/16/17 History Accu-Chek 1 each FS ACHS strip 01/08/17 03/16/17 Rx Acetaminophen [Tylenol] 650 mg PO Q6HP PRN tablet 01/08/17 03/16/17 Rx Docusate Sodium [Colace] 100 mg PO BID PRN capsule 01/08/17 03/16/17 Rx Insulin Glargine, Human [Lantus] 5 unit SQ DAILY unit 01/08/17 03/16/17 Rx Insulin Lispro [Humalog] See Protocol SQ ACHS #1 unit 01/08/17 03/16/17 Rx Ferrous Sulfate 325 mg PO DAILY 02/18/17 03/16/17 History Glimepiride 1 mg PO DAILY 02/18/17 03/16/17 History Pantoprazole [Protonix] 40 mg PO BIDAC #60 tab 02/23/17 03/16/17 Rx Amoxicillin/Potassium Clav 500 mg PO BID 03/16/17 03/16/17 History [Augmentin] Glucagon,Human Recombinant 1 mg IJ ONCE PRN 03/16/17 03/16/17 History [Glucagon Emergency Kit] Metoprolol Tartrate [Lopressor] 75 mg PO HS 03/16/17 03/16/17 History Metoprolol Tartrate [Lopressor] 100 mg PO DAILY 03/16/17 03/16/17 History Nystatin [Nyata] 100,000 unit TP TID 03/16/17 03/16/17 History Warfarin [Coumadin] 3 mg PO HS 03/16/17 03/16/17 History Allergies Allergy/AdvReac Type Severity Reaction Status Date / Time No Known Drug Allergies Allergy Verified 03/10/17 12:51 Exam Temp Pulse Resp BP Pulse Ox 97.1 F 105 H 18 95/60 98 03/16/17 15:28 03/16/17 03:26 03/16/17 15:28 03/16/17 15:28 03/16/17 15:28 - General physical appearance well developed, well nourished, no distress, chronically ill, other (Morbidly obese; chronically ill) - Eyes PERRL, normal ocular movement - ENT normal pinna, normal nares, normal mucosa, no hearing loss, no congestion, decreased hearing - Head Head exam IM: Present: atraumatic, normal inspection, normocephalic - Neck no masses, no bruits, trachea midline, no lymphadectomy, no venous distension - Cardiovascular Cardiovascular exam IM: Present: normal rate and rhythm, irregular rhythm, +S1, +S2, systolic murmur, tachycardia. Absent: JVD Intensity IM: 3/ - Respiratory normal expansion, normal respiratory effort, other (Coarse rhonchi which clear with cough; no wheezes noted) - Abdomen Abdomen: Present: soft, non tender, bowel sounds, distended (Very large distended abdomen with large parastomal hernia left lower quadrant containing large volume of viscera; nontender) Hernia: Present: none - Genitourinary Present: normal penis with no external lesions, other (Indwelling Torres catheter ) - Integumentary Present: no growths, no abnormal pigmentation, other (Chronic irritation below lower abdominal panniculus; multiple excoriations; chronic stasis dermatitis of the legs) - Neurologic Present: normal coordination, normal sensation - Musculoskeletal Present: other (Patient is bedridden gait and stance cannot be tested; stiffness in hips, knees and ankles) - Psychiatric Present: oriented to time, oriented to person, oriented to place, speech is normal, memory intact Assessment and Plan (1) 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 The presence of gas in the large hernia sac in the presence of the large fascial defect will probably keep him from getting completely obstructed. Will get small bowel follow-through which will rule out obstruction. Patient is not an operative candidate for repair of the hernia Status: Acute (2) Severe aortic stenosis Status: Acute (3) Chronic kidney disease (CKD) stage G3a/A1, moderately decreased glomerular filtration rate (GFR) between 45-59 mL/min/1.73 square meter and albuminuria creatinine ratio less than 30 mg/g Status: Acute (4) CHF (congestive heart failure) Status: Acute Qualifiers: Congestive heart failure type: unspecified Congestive heart failure chronicity: chronic Qualified Code(s): I50.9 - Heart failure, unspecified (5) Anemia Status: Acute (6) Thrombocytopenia Status: Acute (7) Dementia Status: Acute Qualifiers: Dementia type: unspecified type Dementia behavioral disturbance: without behavioral disturbance Qualified Code(s): F03.90 - Unspecified dementia without behavioral disturbance (8) Chronic intermittent hypoxia with obstructive sleep apnea Status: Acute (9) History of colon cancer Status: Acute
[2017-03-16] MEDS: PANTOPRAZOLE 40 MG VIAL IV SCH (16:57)
--- NOTE | 2017-03-16 19:22 | XRay Report ---
CLINICAL INFORMATION: Large peristomal hernia in the anterior abdominal wall question obstruction incarceration TECHNIQUE: 11 Gastrografin was infused through the indwelling NG tube probably three catheter. Serial films were then obtained. FINDINGS: There are multiple loops of jejunum which extend through the left anterior abdominal wall peristomal hernia. The contrast freely flows through this region: There is no evidence of obstruction or incarceration. All small bowel loops are normal in contour and caliber with a uniform plicae circulares folds. Small bowel transit time to the cecum is less than one hour IMPRESSION: Large peristomal hernia in the left anterior abdominal wall containing multiple loops of jejunum which are freely mobile and not incarcerated or obstructed. Interpreted and Authenticated by: Gene Capellan 03/16/17
[2017-03-17] MEDS: PIPERACILLIN SODIUM/TAZOBACTAM 3.375 GM in DEXTROSE 5% IN WATER 50 ML IV SCH ×3 (05:50→21:50)
[2017-03-17] MEDS: INSULIN LISPRO 1 UNIT/0.01 ML UNIT SQ SCH ×3 (05:54→16:55)
[2017-03-17 06:05] LABS: Basophils # (Auto) 0 K/mcL (0.0-0.3); Basophils % (Auto) 0.4 % (0.0-2.0); Eosinophils # (Auto) 0.4 K/mcL (0.0-0.7); Eosinophils % (Auto) 7.7 % (0.0-7.0); Granulocytes % (Auto) 51.8 % (38.0-78.0); Lymphocytes # (Auto) 1.7 K/mcL (1.5-4.8); Lymphocytes % (Auto) 32.1 % (15.5-49.0); Mean Cell Volume 99.6 fL (80.0-100.0); Mean Corpuscular HGB Conc 33.4 g/dL (31.0-36.0); Mean Corpuscular Hemoglobin 33.3 pg (26.0-34.0); Monocytes # (Auto) 0.4 K/mcL (0.1-0.9); Platelet Count 155 K/mcL (140-440); RBC 2.82 M/mcL (4.50-5.90); Red Cell Distribution Width 17.6 % (11.5-14.5)
[2017-03-17 06:35] LABS: ALT/SGPT 18 U/l (0-40); Albumin 2.3 gm/dL (3.2-5.2); Albumin/Globulin Ratio 0.6 (1.0-2.3); Alkaline Phosphatase 166 U/L (39-117); Bilirubin,Direct < 0.2 mg/dL (0.0-0.3); Blood Urea Nitrogen 38 mg/dl (8-23); Gamma Glutamyl Transpeptidase 39 U/L (8-61); Uric Acid 5.7 mg/dL (2.5-8.0)
[2017-03-17] MEDS: PANTOPRAZOLE 40 MG VIAL IV SCH (07:18)
--- NOTE | 2017-03-17 08:14 | Cat Scan Report ---
CLINICAL INFORMATION: Abdominal pain and distention. Left lower quadrant colostomy with no stool in the colostomy bag 24 hours. COMPARISON: 08/25/2010.. TECHNIQUE: 0.625 mm helical slices were obtained from the mid heart through the subtrochanteric regions. Following reconstruction, 2.5 mm sagittal, coronal and axial reformatted images were processed and reviewed at bone and soft tissue windows.The exam was performed using radiation dose optimization techniques including, but not limited to, automated exposure control, adjustment of the mA and/or kV according to patient size and use of iterative reconstruction technique. FINDINGS: Lung bases show moderate bilateral pleural effusions and subsegmental atelectasis in both posterior lower lobes. The heart is moderately enlarged. A moderate sized left diaphragmatic hernia has developed since the 2010 study. A portion of the spleen, gastric fundus and mesenteric fat have herniated into the left lower chest. Images through the abdomen show the liver is diminutive with irregular cortical surface suggesting cirrhosis. This has progressed from previous study - no focal hepatic lesions on this noncontrast exam. The gallbladder and bile ducts are normal. There is mild bilateral renal atrophy. A 20 mm high attenuation lesion projects in the inferior pole the right kidney is new from the previous study. It is likely a hyperdense cyst, however, a solid lesion not excluded. A 4 cm simple cyst in the superior pole left kidney is noted. The noncontrasted adrenal glands, spleen, pancreas and aorta are unremarkable. Images through the pelvis show Torres catheter in urinary bladder which is partially collapsed. There is diffuse bladder wall thickening. The possibility of cystitis or infiltrative pathology not excluded. Partial sigmoidectomy - left lower quadrant colostomy and Schrader's pouch creation noted. There is a large peristomal hernia which is increased in size: most of the hernia has been excluded from the image but is estimated to be greater than 22 cm. It consists of multiple loops of nondilated small bowel. The distal descending colon which had been swung into the colostomy at least mildly compressed at the hernia entry site. There is a second 8 cm ventral hernia, just medial to the larger hernia, which contains a segment of distal transverse colon which does not appear obstructed or incarcerated. A third ventral hernia in the left false pelvic wall, spans 3.4 cm, and contains only mesenteric fat. No free air, free fluid and no adenopathy. IMPRESSION: 1. 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 No evidence of obstruction or incarceration. The distal descending colon appears mildly narrowed as it enters the hernia site. 2. 8 cm ventral hernia, just medial to the larger hernia containing a segment of nonincarcerated nonobstructed distal transverse colon 3. 3.4 cm ventral hernia, inferiorly in the left anterior false pelvis, contains only mesenteric fat - stable 4. Moderate left diaphragmatic hernia allowing the spleen stomach and mesenteric fat to migrate into the lower chest cavity. This is new from the previous study 5. Moderate bilateral pleural effusions - new. Consider chest x-ray to evaluate for CHF 6. Torres catheter in satisfactory position urinary bladder. There is marked urinary bladder wall thickening suggesting cystitis or other infiltrative bladder pathology. 7. Probable progressive cirrhotic changes. Please correlate with hepatic serologies and other clinical history. No evidence of portal hypertension or ascites Interpreted and Authenticated by: Gene Capellan 03/17/17
[2017-03-17] MEDS ORDERED: ACETAMINOPHEN 325 MG TABLET PO PRN (09:27)
[2017-03-17] MEDS ORDERED: DOCUSATE SODIUM 100 MG CAPSULE PO PRN (09:27)
[2017-03-17] MEDS: 0.9 % SODIUM CHLORIDE 1,000 ML IV SCH ×2 (09:54→13:47)
[2017-03-17] MEDS: FUROSEMIDE 40 MG TABLET PO SCH (10:01)
--- NOTE | 2017-03-17 10:29 | XRay Report ---
CLINICAL INFORMATION: Follow small bowel obstruction COMPARISON: None. FINDINGS: The enteric contrast, administered on yesterday's small bowel follow-through has almost totally with only minimal residual in the colon. Large hernia in the left anterior abdominal wall seen - as before. The small bowel and colon are normal caliber. IMPRESSION: Large left ventral hernia containing nonincarcerated small bowel and colon. No evidence of bowel obstruction Interpreted and Authenticated by: Gene Capellan 03/17/17
--- NOTE | 2017-03-17 10:53 | General Surgery Consult Note ---
History of Present Illness Patient information: Note initiated : 03/17/17 at 10:48 am Service Date, if different from initiated Date: [] Patient: Kevin Albrecht 81 y/o M admitted on 03/16/17 for Recheck. Chief Complaint: [] Consult date: 03/16/17 Requesting physician: Tay Clay (Wound Care Evluation) History of present illness: I reviewed patient's EHR records and examined patient with [place] CARLSON 81/M Morbid obesity. Admitted for Abdominal discomfort and SBO and a non complicated reducible parastomal ventral incisional hernia. Noted to have multiple skin abrasions / and scattered dry skin tears Right leg, left forearm and left posterior upper thigh. Patient is mostly in bed but moves around and moves all extremities. Medications and Allergies Home Medications Medication Instructions Recorded Confirmed Type Allopurinol [Zyloprim] 200 mg PO DAILY 05/29/15 03/16/17 History Furosemide [Lasix] 40 mg PO DAILY 05/29/15 03/16/17 History Levothyroxine [Synthroid] 25 mcg PO DAILY 05/29/15 03/16/17 History Simvastatin [Zocor] 40 mg PO HS 05/29/15 03/16/17 History Accu-Chek 1 each FS ACHS strip 01/08/17 03/16/17 Rx Acetaminophen [Tylenol] 650 mg PO Q6HP PRN tablet 01/08/17 03/16/17 Rx Docusate Sodium [Colace] 100 mg PO BID PRN capsule 01/08/17 03/16/17 Rx Insulin Glargine, Human [Lantus] 5 unit SQ DAILY unit 01/08/17 03/16/17 Rx Insulin Lispro [Humalog] See Protocol SQ ACHS #1 unit 01/08/17 03/16/17 Rx Ferrous Sulfate 325 mg PO DAILY 02/18/17 03/16/17 History Glimepiride 1 mg PO DAILY 02/18/17 03/16/17 History Pantoprazole [Protonix] 40 mg PO BIDAC #60 tab 02/23/17 03/16/17 Rx Amoxicillin/Potassium Clav 500 mg PO BID 03/16/17 03/16/17 History [Augmentin] Glucagon,Human Recombinant 1 mg IJ ONCE PRN 03/16/17 03/16/17 History [Glucagon Emergency Kit] Metoprolol Tartrate [Lopressor] 75 mg PO HS 03/16/17 03/16/17 History Metoprolol Tartrate [Lopressor] 100 mg PO DAILY 03/16/17 03/16/17 History Nystatin [Nyata] 100,000 unit TP TID 03/16/17 03/16/17 History Warfarin [Coumadin] 3 mg PO HS 03/16/17 03/16/17 History Allergies Allergy/AdvReac Type Severity Reaction Status Date / Time No Known Drug Allergies Allergy Verified 03/10/17 12:51 Exam Temp Pulse Resp BP Pulse Ox 97.2 F 90 16 126/92 97 03/17/17 08:00 03/17/17 03:21 03/17/17 08:00 03/17/17 08:00 03/17/17 08:00 - General physical appearance well nourished, no distress, no pain, other (Morbidly obese) - Eyes PERRL, normal ocular movement - ENT normal pinna, normal nares, normal mucosa, no congestion - Head Head exam IM: Present: atraumatic, normal inspection, normocephalic - Neck no masses, trachea midline, no venous distension - Cardiovascular Cardiovascular exam IM: Present: normal rate and rhythm - Respiratory normal expansion, normal respiratory effort, clear to auscultation - Abdomen Abdomen: Present: soft, non tender, bowel sounds Hernia: Present: incisional, reducible (Parastomal LLQ incisional hernia) - Genitourinary Present: normal penis with no external lesions (Torres catheter draining clear urine. ), other - Integumentary Present: other (Dry clean skin tears 2 on right leg and one on left forearm and posterior left upper thigh. NO signs of tenderness, purulence or acute inflammatory changes. Skin is dry. ) - Neurologic Present: normal coordination, normal sensation, other (MORALES. Non focal normal neurological examination) - Musculoskeletal Present: normal posture, other (Non Ambulatory at this time.) - Psychiatric Present: oriented to time, oriented to person, oriented to place, speech is normal, memory intact Results - Labs 03/17/17 03:55 03/17/17 03:55 Abnormal lab results 03/16/17 03/16/17 03/17/17 Range/Units 10:19 10:19 03:55 RBC 2.99 L 2.82 L (4.50-5.90) M/mcL Hgb 9.8 L 9.4 L (13.5-16.5) g/dL Hct 29.8 L 28.1 L (41.0-55.0) % RDW 16.9 H 17.6 H (11.5-14.5) % Eos % (Auto) 7.7 H (0.0-7.0) % Carbon Dioxide 31 H (22-30) mmol/L BUN 45 H (8-23) mg/dl Creatinine 2.4 H (0.7-1.2) mg/dl Glucose 66 L (70-105) mg/dL Calcium (8.6-10.4) mg/dl AST (0-37) U/l Alkaline Phosphatase 167 H (39-117) U/L Lactate Dehydrogenase (94-250) U/L Albumin 2.7 L (3.2-5.2) gm/dL Globulin 3.8 H (2.2-3.7) gm/dL Albumin/Globulin Ratio 0.7 L (1.0-2.3) 03/17/17 Range/Units 03:55 RBC (4.50-5.90) M/mcL Hgb (13.5-16.5) g/dL Hct (41.0-55.0) % RDW (11.5-14.5) % Eos % (Auto) (0.0-7.0) % Carbon Dioxide (22-30) mmol/L BUN 38 H (8-23) mg/dl Creatinine 2.1 H (0.7-1.2) mg/dl Glucose (70-105) mg/dL Calcium 8.4 L (8.6-10.4) mg/dl AST 39 H (0-37) U/l Alkaline Phosphatase 166 H (39-117) U/L Lactate Dehydrogenase 271 H (94-250) U/L Albumin 2.3 L (3.2-5.2) gm/dL Globulin 4.0 H (2.2-3.7) gm/dL Albumin/Globulin Ratio 0.6 L (1.0-2.3) Diabetes panel 03/16/17 03/17/17 Range/Units 10:19 03:55 Sodium 144 141 (133-145) mmol/L Potassium 3.9 3.8 (3.3-5.1) mmol/L Chloride 102 102 (96-108) mmol/L Carbon Dioxide 31 H 26 (22-30) mmol/L BUN 45 H 38 H (8-23) mg/dl Creatinine 2.4 H 2.1 H (0.7-1.2) mg/dl Glucose 66 L 95 (70-105) mg/dL Calcium 8.6 8.4 L (8.6-10.4) mg/dl AST 34 39 H (0-37) U/l ALT 16 18 (0-40) U/l Alkaline Phosphatase 167 H 166 H (39-117) U/L Total Protein 6.5 6.3 (5.9-8.4) gm/dL Albumin 2.7 L 2.3 L (3.2-5.2) gm/dL Triglycerides 81 102 (<150) mg/dl Calcium panel 03/16/17 03/17/17 Range/Units 10:19 03:55 Calcium 8.6 8.4 L (8.6-10.4) mg/dl Phosphorus 3.7 3.8 (2.7-4.5) mg/dL Albumin 2.7 L 2.3 L (3.2-5.2) gm/dL Pituitary panel 03/16/17 03/17/17 Range/Units 10:19 03:55 Sodium 144 141 (133-145) mmol/L Potassium 3.9 3.8 (3.3-5.1) mmol/L Chloride 102 102 (96-108) mmol/L Carbon Dioxide 31 H 26 (22-30) mmol/L BUN 45 H 38 H (8-23) mg/dl Creatinine 2.4 H 2.1 H (0.7-1.2) mg/dl Glucose 66 L 95 (70-105) mg/dL Calcium 8.6 8.4 L (8.6-10.4) mg/dl Adrenal panel 03/16/17 03/17/17 Range/Units 10:19 03:55 Sodium 144 141 (133-145) mmol/L Potassium 3.9 3.8 (3.3-5.1) mmol/L Chloride 102 102 (96-108) mmol/L Carbon Dioxide 31 H 26 (22-30) mmol/L BUN 45 H 38 H (8-23) mg/dl Creatinine 2.4 H 2.1 H (0.7-1.2) mg/dl Glucose 66 L 95 (70-105) mg/dL Calcium 8.6 8.4 L (8.6-10.4) mg/dl Total Bilirubin 0.5 0.4 (0.0-1.0) mg/dL AST 34 39 H (0-37) U/l ALT 16 18 (0-40) U/l Alkaline Phosphatase 167 H 166 H (39-117) U/L Total Protein 6.5 6.3 (5.9-8.4) gm/dL Albumin 2.7 L 2.3 L (3.2-5.2) gm/dL All other labs normal. Assessment and Plan (1) Skin tear Assessment: Multiple medical issues, Appropriately managed. Grade 1 skin tears < 1 CM scattered 2 on right leg, 1 on Left forearm and left posterior thigh. Dry skin. Plan: TAPS q 2 hrly. Patient is already on air loss mattress, Cleansing skin of extremities with Chlorhexidine and Application of foam Mepilex bordered dressings, ( As discussed with nursing staff ) Will see again PRN basis. Status: Chronic Priority: Low
--- NOTE | 2017-03-17 12:53 | General Surgery Progress Note ---
Subjective Patient reports: feels better, pain is less, flatus, bowel movement, afebrile Narrative: Note initiated : 03/17/17 at 12:52 pm Service Date, if different from initiated Date: [] Patient: Kevin Albrecht 81 y/o M admitted on 03/16/17 for Recheck. Chief Complaint: [Patient is doing better with regards to his GI tract. He has had multiple bowel movements and has passed lots of flatus. Abdominal exam is totally benign. Abdominal x-ray shows that all the contrast that was given on yesterday has essentially cleared and there is no evidence of obstruction. He is tolerating diet without difficulty. From a surgical standpoint he is clinically stable but he is being treated for pneumonitis.] Objective Temp Pulse Resp BP Pulse Ox 97.3 F 90 18 110/70 94 03/17/17 11:28 03/17/17 03:21 03/17/17 11:28 03/17/17 11:28 03/17/17 11:28 - Additional Data Intake & Output - Last 24 hours: Intake & Output 03/15/17 03/16/17 03/17/17 03/18/17 05:59 05:59 05:59 05:59 Intake Total 0 / 0 3470 / 3470 360 / 360 Output Total 3160 / 3160 Balance 0 / 0 310 / 310 360 / 360 Weight 293 lb 293 lb 293 lb - General physical appearance well developed, well nourished, no distress, no pain, chronically ill, obese - Eyes PERRL, normal ocular movement - Neck no venous distension - Respiratory normal expansion, normal respiratory effort, clear to percussion, clear to auscultation - Cardiovascular Cardiovascular exam: Present: irregular rhythm, +S1, +S2, tachycardia. Absent: JVD - Abdomen non tender, bowel sounds (present), surgical scars (none), masses ( With active bowel sounds in the hernia sac; stoma is functioning appropriately; large parastomal hernia is soft) - Labs 03/17/17 03:55 03/17/17 03:55 Diabetes panel 03/17/17 Range/Units 03:55 Sodium 141 (133-145) mmol/L Potassium 3.8 (3.3-5.1) mmol/L Chloride 102 (96-108) mmol/L Carbon Dioxide 26 (22-30) mmol/L BUN 38 H (8-23) mg/dl Creatinine 2.1 H (0.7-1.2) mg/dl Glucose 95 (70-105) mg/dL Calcium 8.4 L (8.6-10.4) mg/dl AST 39 H (0-37) U/l ALT 18 (0-40) U/l Alkaline Phosphatase 166 H (39-117) U/L Total Protein 6.3 (5.9-8.4) gm/dL Albumin 2.3 L (3.2-5.2) gm/dL Triglycerides 102 (<150) mg/dl Calcium panel 03/17/17 Range/Units 03:55 Calcium 8.4 L (8.6-10.4) mg/dl Phosphorus 3.8 (2.7-4.5) mg/dL Albumin 2.3 L (3.2-5.2) gm/dL Pituitary panel 03/17/17 Range/Units 03:55 Sodium 141 (133-145) mmol/L Potassium 3.8 (3.3-5.1) mmol/L Chloride 102 (96-108) mmol/L Carbon Dioxide 26 (22-30) mmol/L BUN 38 H (8-23) mg/dl Creatinine 2.1 H (0.7-1.2) mg/dl Glucose 95 (70-105) mg/dL Calcium 8.4 L (8.6-10.4) mg/dl Adrenal panel 03/17/17 Range/Units 03:55 Sodium 141 (133-145) mmol/L Potassium 3.8 (3.3-5.1) mmol/L Chloride 102 (96-108) mmol/L Carbon Dioxide 26 (22-30) mmol/L BUN 38 H (8-23) mg/dl Creatinine 2.1 H (0.7-1.2) mg/dl Glucose 95 (70-105) mg/dL Calcium 8.4 L (8.6-10.4) mg/dl Total Bilirubin 0.4 (0.0-1.0) mg/dL AST 39 H (0-37) U/l ALT 18 (0-40) U/l Alkaline Phosphatase 166 H (39-117) U/L Total Protein 6.3 (5.9-8.4) gm/dL Albumin 2.3 L (3.2-5.2) gm/dL Assessment and Plan (1) 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 Status: Resolved Current Visit: Yes (2) Severe aortic stenosis Status: Chronic Current Visit: Yes (3) Chronic kidney disease (CKD) stage G3a/A1, moderately decreased glomerular filtration rate (GFR) between 45-59 mL/min/1.73 square meter and albuminuria creatinine ratio less than 30 mg/g Status: Chronic Current Visit: Yes (4) CHF (congestive heart failure) Status: Chronic Current Visit: No (5) Anemia Status: Acute Current Visit: No (6) Thrombocytopenia Status: Chronic Current Visit: No (7) Dementia Status: Chronic Current Visit: No (8) Chronic intermittent hypoxia with obstructive sleep apnea Status: Chronic Current Visit: Yes (9) History of colon cancer Status: Chronic Current Visit: Yes - Time Spent With Patient Total time spent is greater than 50% in coordination of care (as documented) at patient's floor/unit and/or counseling patient:
[2017-03-17] MEDS ORDERED: WARFARIN 3 MG TABLET PO ONE (14:00)
--- NOTE | 2017-03-17 14:34 | Internal Med Progress Note ---
Medical - PN: Subj Patient information: Note initiated : 03/17/17 at 2:32 pm Service Date, if different from initiated Date: [] Patient: Kevin Albrecht a 81 y/o M admitted on 03/16/17 for Recheck. Chief Complaint: [] Interval history: Mr. 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 The patient notes that for the last 2 days he has noticed pain around the stomal region, moderate to severe, may be aggravated by some food but not really sure. He denies any other complaints. The patient noted that there has been no stomal output and that's why the care home sent him here for evaluation. The patient was admitted under General surgery and medicine was asked to consult for management of chronic medical problems. By the time of my evaluation, the patient stoma was working again and there was liquid stool in the bag. The patient has a history of diabetes, severe aortic stenosis, chronic kidney disease, he denies any history of coronary artery disease, stroke. He has poor baseline function status. He is able to walk a few feet with the aid of a walker. He denies any active chest pain. The patient denies any headache, dizziness, difficulty in swallowing or hearing. Denies any shortness of breath. Denies any cough. Denies any nausea , vomiting, he admits to having some pain around the stoma site were no generalized abdominal pain or distention. He has no bladder complaints. Denies any swelling in the legs. Denies any joint pain. The patient was recently admitted for upper GI bleed due to supratherapeutic INR ,he was supposed to follow up with Dr. MUNROE for an EGD scope. He and I not sure if that was done. Nonetheless, the stomal output shows brown stools and the hemoglobin is stable. In the emergency room, the patient had a CT scan of the abdomen done which showed bowel loops herniated around the stoma causing obstruction, as well as small bowel obstruction. The patient was therefore admitted to the hospital for further management. NG tube was placed. Mar 17 patient seen and examined, lying in the bed comfortably, in good spirits, patient's stool is still coming out from the bag. He denies any abdominal pain , x-ray of the abdomen does not show any evidence of obstruction. It is no bleeding noted in the back. Appreciate general surgery input. Wound care consulted for management of chronic wounds. Diet to be advanced today to regular diet, resume home medications. Pertinent ROS: Denies headache, dizziness Denies chest pain, palpitations Denies cough or shortness of breath Denies abdominal pain, nausea or vomiting. patient has no complaints - Constitutional Vitals: Vital Signs Temp Pulse Resp BP Pulse Ox 97.3 F 90 18 110/70 94 03/17/17 11:28 03/17/17 03:21 03/17/17 11:28 03/17/17 11:28 03/17/17 11:28 Period Temp Pulse Resp BP Sys/Mohr Pulse Ox Last 24 Hr 97.1 F-97.7 F 87-99 16-20 95-126/60-92 94-98 Intake and Output 03/17/17 03/17/17 03/17/17 05:59 13:59 21:59 Intake Total 1260 / 1260 1530 / 1530 Output Total 425 / 425 Balance 835 / 835 1530 / 1530 Weight 293 lb Patient Weight 03/18/17 05:59 Weight 293 lb Intake & Output: Intake & Output 03/17/17 03/17/17 03/17/17 05:59 13:59 21:59 Intake Total 1260 / 1260 1530 / 1530 Output Total 425 / 425 Balance 835 / 835 1530 / 1530 Weight 293 lb Intake: IV 1050 / 1050 1050 / 1050 Sodium Chloride 0.9% 1,000 ml @ 1000 / 1000 1000 / 1000 100 mls/hr IV .Q10H [facility] Rx#: [id number] Zosyn 3.375 gm In Dextrose 5% 50 / 50 50 / 50 in Water 50 ml @ 100 mls/hr IV Q8H RA Rx#:[id number] Oral 210 / 210 480 / 480 Output: Urine Catheter Amount 425 / 425 Other: Meal Lunch Percent of Meal Consumed 75% Exam: Constitutional; Afebrile, cooperative, alert, not in distress,patient is morbidly obese Eyes- No icterus, , No periorbital swelling Ears- Ext ear normal, hearing normal to conversation. Neck- Midline trachea, supple Respiratory system: Air Entry equal on both sides, No crackles or wheezing, no rhonchi. CVS- Rate rhythm regular, S1,S2 heard, distant heart sounds Abdomen- Soft nontender abdomen, no organomegaly, no tenderness, no guarding or rigidity,large pannus. 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 Medical - PN: Obj Da - Labs CBC & Chem 7: 03/17/17 03:55 03/17/17 03:55 Labs: Abnormal Lab Results 03/17/17 03/17/17 03/17/17 10:12 03:55 03:55 RBC 2.82 L Hgb 9.4 L Hct 28.1 L POC Hct RDW 17.6 H Eos % (Auto) 7.7 H Polychromasia Anisocytosis PT 15.7 H INR 1.2 H Carbon Dioxide POC Total CO2 POC BUN BUN 38 H Creatinine 2.1 H POC Creatinine Glucose Calcium 8.4 L POC WB Ioniz Calcium AST 39 H Alkaline Phosphatase 166 H Lactate Dehydrogenase 271 H Albumin 2.3 L Globulin 4.0 H Albumin/Globulin Ratio 0.6 L 03/16/17 03/16/17 03/16/17 10:19 10:19 00:30 RBC 2.99 L Hgb 9.8 L Hct 29.8 L POC Hct 29.0 L RDW 16.9 H Eos % (Auto) Polychromasia Anisocytosis PT INR Carbon Dioxide 31 H POC Total CO2 32 H POC BUN 45 H BUN 45 H Creatinine 2.4 H POC Creatinine 2.7 H Glucose 66 L Calcium POC WB Ioniz Calcium 1.09 L AST Alkaline Phosphatase 167 H Lactate Dehydrogenase Albumin 2.7 L Globulin 3.8 H Albumin/Globulin Ratio 0.7 L 03/16/17 00:30 RBC 2.97 L Hgb 9.7 L Hct 29.5 L POC Hct RDW 17.3 H Eos % (Auto) Polychromasia Few A Anisocytosis 1+ A PT INR Carbon Dioxide POC Total CO2 POC BUN BUN Creatinine POC Creatinine Glucose Calcium POC WB Ioniz Calcium AST Alkaline Phosphatase Lactate Dehydrogenase Albumin Globulin Albumin/Globulin Ratio Meds: Medications Acetaminophen (Tylenol) 650 mg PO Q6HP PRN PRN Reason: PAIN/FEVER > 101 Allopurinol (Zyloprim) 200 mg PO DAILY [facility] Dextrose (Dextrose 50%) 0 ml IV UD PRN PRN Reason: Hypoglycemia Diagnostic Test (Pha) (Accu-Chek) 1 each FS Q6 [facility] Last Admin: 03/17/17 11:20 Dose: 1 each Docusate Sodium (Colace) 100 mg PO BIDP PRN PRN Reason: Constipation Ferrous S[facility] ([facility]) [facility] Furosemide (Lasix) 40 mg PO DAILY [facility] Last Admin: 03/17/17 10:01 Dose: 40 mg Sodium Chloride (Sodium Chloride 0.9%) 1,000 mls @ 100 mls/hr IV .Q10H [facility] Last Admin: 03/17/17 13:47 Dose: 100 mls/hr Piperacillin Sod/Tazobactam (Sod 3.375 gm/ Dextrose) 50 mls @ 100 mls/hr IV Q8H [facility] Last Admin: 03/17/17 13:47 Dose: 100 mls/hr Insulin Human Lispro (Humalog) 0 unit SQ Q6 [facility] PRN Reason: Protocol Last Admin: 03/17/17 11:20 Dose: Not Given Levothyroxine Sodium (Synthroid) 25 mcg PO QAMAC [facility] Metoprolol Tartrate (Lopressor) 5 mg IV Q4HP PRN PRN Reason: Tachyarrhythmias Metoprolol Tartrate (Lopressor) 100 mg PO DAILY [facility] Metoprolol Tartrate (Lopressor) 75 mg PO HS [facility] Nystatin (Nystatin) 0 dose TOPICAL TID [facility] Ondansetron HCl (Zofran) 4 mg IV Q4HP PRN PRN Reason: Nausea And Vomiting Pantoprazole Sodium (Protonix) 40 mg IV BIDAC [facility] Last Admin: 03/17/17 07:18 Dose: 40 mg Pantoprazole Sodium (Protonix) 40 mg PO BIDAC [facility] Simvastatin (Zocor) 40 mg PO HS [facility] Warfarin Sodium (Coumadin) 3 mg PO HS [facility] Medical - PN: A/P - Time Spent With Patient Total time spent is greater than 50% in coordination of care (as documented) at patient's floor/unit and/or counseling patient: - Narrative A/P Narrative: A/P parastomal hernia with SBO: management as per Gen surgery, no evidence of SBO, colostomy bag is draining appropriately now. DM: diabetic diet is resumed, sliding scale insulin. glucose values at goal. CKD : Creat 2.1 improved now back at baseline,discontinue IV fluids Afib Paroxysmal: On coumadin for anticoagulation, INR is subtherapeutic, rate controlled, resume home dose of metoprolol, Coumadin resumed. Pharmacy to dose HTN: home blood pressure medications resumed Pneumonia-noted on x-ray, slight worsening of infiltrates. Clinically does not have any symptoms. On IV Zosyn for now. Does not need oxygen. Morbid obesity: weight loss needed Severe Aortic stenosis: 0.8cms on Aortic area on last echo, pt has poor functional status, but denies any syncope or chest pain. Monitor Anemia/ REcent GIB: hb stable, INr stable, not sure if he underwent EGD, on ppi for now, continue to monitor,hemoglobin dropped by 2 units, monitor for now. No evidence of bleed in the colostomy bag Gout, on allopuriol will continue DVT hep sq Decub ulcers: Wound care eval, appreciate help by Dr Pedraza. BPH patel in place for now. Medical - PN: Qual - VTE Deep Vein Thrombosis/Pulmonary Embolism Present on Admission: No
[2017-03-17] MEDS: NYSTATIN POWDER BOTTLE 15GM TOPICAL SCH ×2 (16:08→20:26)
[2017-03-17] MEDS: PANTOPRAZOLE 40 MG TABLET PO SCH (16:47)
[2017-03-17] MEDS: METOPROLOL TARTRATE 25 MG TABLET PO SCH (20:25)
[2017-03-17] MEDS: HEPARIN 5,000 UNIT/ML VIAL SQ SCH (20:25)
[2017-03-17] MEDS: SIMVASTATIN 40 MG TABLET PO SCH (20:25)
[2017-03-18] MEDS: INSULIN LISPRO 1 UNIT/0.01 ML UNIT SQ SCH ×5 (00:14→23:40)
[2017-03-18 05:42] LABS: Basophils # (Auto) 0 K/mcL (0.0-0.3); Basophils % (Auto) 0.5 % (0.0-2.0); Eosinophils # (Auto) 0.4 K/mcL (0.0-0.7); Granulocytes % (Auto) 54.6 % (38.0-78.0); Lymphocytes # (Auto) 1.8 K/mcL (1.5-4.8); Lymphocytes % (Auto) 30.8 % (15.5-49.0); Mean Cell Volume 99.9 fL (80.0-100.0); Mean Corpuscular HGB Conc 33.2 g/dL (31.0-36.0); Mean Corpuscular Hemoglobin 33.2 pg (26.0-34.0); Monocytes # (Auto) 0.4 K/mcL (0.1-0.9); Monocytes % (Auto) 7.1 % (1.0-12.0); Platelet Count 182 K/mcL (140-440); RBC 2.93 M/mcL (4.50-5.90); Red Cell Distribution Width 16.8 % (11.5-14.5)
[2017-03-18] MEDS: PIPERACILLIN SODIUM/TAZOBACTAM 3.375 GM in DEXTROSE 5% IN WATER 50 ML IV SCH ×3 (05:55→21:56)
[2017-03-18 06:00] LABS: ALT/SGPT 17 U/l (0-40); Albumin 2.6 gm/dL (3.2-5.2); Albumin/Globulin Ratio 0.6 (1.0-2.3); Alkaline Phosphatase 165 U/L (39-117); Bilirubin,Direct < 0.2 mg/dL (0.0-0.3); Blood Urea Nitrogen 32 mg/dl (8-23); Gamma Glutamyl Transpeptidase 41 U/L (8-61); Uric Acid 5.1 mg/dL (2.5-8.0)
[2017-03-18] MEDS: LEVOTHYROXINE 25 MCG TABLET PO SCH (06:59)
[2017-03-18] MEDS: PANTOPRAZOLE 40 MG TABLET PO SCH ×2 (06:59→16:50)
[2017-03-18] MEDS: FUROSEMIDE 40 MG TABLET PO SCH (08:39)
[2017-03-18] MEDS: NYSTATIN POWDER BOTTLE 15GM TOPICAL SCH ×3 (08:39→21:31)
[2017-03-18] MEDS: ALLOPURINOL 100 MG TABLET PO SCH (08:39)
[2017-03-18] MEDS: METOPROLOL TARTRATE 50 MG TABLET PO SCH (08:39)
[2017-03-18] MEDS: HEPARIN 5,000 UNIT/ML VIAL SQ SCH ×2 (08:40→21:31)
[2017-03-18] MEDS: FERROUS SULFATE 325 MG TABLET PO SCH (08:40)
--- NOTE | 2017-03-18 11:20 | Internal Med Progress Note ---
Medical - PN: Subj Patient information: Note initiated : 03/18/17 at 11:18 am Service Date, if different from initiated Date: [] Patient: Kevin Albrecht a 81 y/o M admitted on 03/16/17 for Recheck. Chief Complaint: [] Interval history: Mr. 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 The patient notes that for the last 2 days he has noticed pain around the stomal region, moderate to severe, may be aggravated by some food but not really sure. He denies any other complaints. The patient noted that there has been no stomal output and that's why the skilled nursing sent him here for evaluation. The patient was admitted under General surgery and medicine was asked to consult for management of chronic medical problems. By the time of my evaluation, the patient stoma was working again and there was liquid stool in the bag. The patient has a history of diabetes, severe aortic stenosis, chronic kidney disease, he denies any history of coronary artery disease, stroke. He has poor baseline function status. He is able to walk a few feet with the aid of a walker. He denies any active chest pain. The patient denies any headache, dizziness, difficulty in swallowing or hearing. Denies any shortness of breath. Denies any cough. Denies any nausea , vomiting, he admits to having some pain around the stoma site were no generalized abdominal pain or distention. He has no bladder complaints. Denies any swelling in the legs. Denies any joint pain. The patient was recently admitted for upper GI bleed due to supratherapeutic INR ,he was supposed to follow up with Dr. MUNROE for an EGD scope. He and I not sure if that was done. Nonetheless, the stomal output shows brown stools and the hemoglobin is stable. In the emergency room, the patient had a CT scan of the abdomen done which showed bowel loops herniated around the stoma causing obstruction, as well as small bowel obstruction. The patient was therefore admitted to the hospital for further management. NG tube was placed. Mar 17 patient seen and examined, lying in the bed comfortably, in good spirits, patient's stool is still coming out from the bag. He denies any abdominal pain , x-ray of the abdomen does not show any evidence of obstruction. It is no bleeding noted in the back. Appreciate general surgery input. Wound care consulted for management of chronic wounds. Diet to be advanced today to regular diet, resume home medications. Mar 18 patient seen examined, no acute overnight events, sitting comfortably in chair, no complaints on some oxygen this AM, will get Chest xray able to tolerate po diet well anticipate d/c to snf in AM poor stool output over night but bag has some stools. Pertinent ROS: Denies headache, dizziness Denies chest pain, palpitations Denies cough or shortness of breath Denies abdominal pain, nausea or vomiting. - Constitutional Vitals: Vital Signs Temp Pulse Resp BP Pulse Ox 97.6 F 80 18 122/78 96 03/18/17 11:12 03/18/17 07:28 03/18/17 11:12 03/18/17 11:12 03/18/17 11:12 Period Temp Pulse Resp BP Sys/Mohr Pulse Ox Last 24 Hr 97.0 F-97.9 F 68-124 16-32 109-131/59-89 88-98 Intake and Output 03/17/17 03/18/17 03/18/17 21:59 05:59 13:59 Intake Total 700 / 700 100 / 100 120 / 120 Output Total 975 / 975 950 / 950 Balance -275 / -275 -850 / -850 120 / 120 Weight 300 lb Intake & Output: Intake & Output 03/17/17 03/18/17 03/18/17 21:59 05:59 13:59 Intake Total 700 / 700 100 / 100 120 / 120 Output Total 975 / 975 950 / 950 Balance -275 / -275 -850 / -850 120 / 120 Weight 300 lb Intake: IV 50 / 50 50 / 50 Zosyn 3.375 gm In Dextrose 5% 50 / 50 50 / 50 in Water 50 ml @ 100 mls/hr IV Q8H [facility] Rx#:[id number] Oral 650 / 650 50 / 50 120 / 120 Output: Urine Catheter Amount 925 / 925 950 / 950 Stool 50 / 50 Other: Meal Dinner Breakfast Percent of Meal Consumed 100% 75% Exam: Constitutional; Afebrile, cooperative, alert, not in distress. morbidly obese patient. Eyes- No icterus, , No periorbital swelling Ears- Ext ear normal, hearing normal to conversation. Neck- Midline trachea, supple Respiratory system: Air Entry equal on both sides, No crackles or wheezing, no rhonchi. CVS- Rate rhythm regular, distant heart sounds. 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 Medical - PN: Obj Da - Labs CBC & Chem 7: 03/18/17 04:15 03/18/17 04:15 Labs: Abnormal Lab Results 03/18/17 03/18/17 03/18/17 04:15 04:15 04:15 RBC 2.93 L Hgb 9.7 L Hct 29.3 L POC Hct RDW 16.8 H Eos % (Auto) Polychromasia Anisocytosis PT 16.9 H INR 1.4 H Carbon Dioxide POC Total CO2 POC BUN BUN 32 H Creatinine 2.2 H POC Creatinine Glucose 108 H Calcium 8.5 L POC WB Ioniz Calcium AST Alkaline Phosphatase 165 H Lactate Dehydrogenase 259 H Albumin 2.6 L Globulin 4.1 H Albumin/Globulin Ratio 0.6 L 03/17/17 03/17/17 03/17/17 10:12 03:55 03:55 RBC 2.82 L Hgb 9.4 L Hct 28.1 L POC Hct RDW 17.6 H Eos % (Auto) 7.7 H Polychromasia Anisocytosis PT 15.7 H INR 1.2 H Carbon Dioxide POC Total CO2 POC BUN BUN 38 H Creatinine 2.1 H POC Creatinine Glucose Calcium 8.4 L POC WB Ioniz Calcium AST 39 H Alkaline Phosphatase 166 H Lactate Dehydrogenase 271 H Albumin 2.3 L Globulin 4.0 H Albumin/Globulin Ratio 0.6 L 03/16/17 03/16/17 03/16/17 10:19 10:19 00:30 RBC 2.99 L Hgb 9.8 L Hct 29.8 L POC Hct 29.0 L RDW 16.9 H Eos % (Auto) Polychromasia Anisocytosis PT INR Carbon Dioxide 31 H POC Total CO2 32 H POC BUN 45 H BUN 45 H Creatinine 2.4 H POC Creatinine 2.7 H Glucose 66 L Calcium POC WB Ioniz Calcium 1.09 L AST Alkaline Phosphatase 167 H Lactate Dehydrogenase Albumin 2.7 L Globulin 3.8 H Albumin/Globulin Ratio 0.7 L 03/16/17 00:30 RBC 2.97 L Hgb 9.7 L Hct 29.5 L POC Hct RDW 17.3 H Eos % (Auto) Polychromasia Few A Anisocytosis 1+ A PT INR Carbon Dioxide POC Total CO2 POC BUN BUN Creatinine POC Creatinine Glucose Calcium POC WB Ioniz Calcium AST Alkaline Phosphatase Lactate Dehydrogenase Albumin Globulin Albumin/Globulin Ratio Meds: Medications Acetaminophen (Tylenol) 650 mg PO Q6HP PRN PRN Reason: PAIN/FEVER > 101 Allopurinol (Zyloprim) 200 mg PO DAILY [facility] Last Admin: 03/18/17 08:39 Dose: 200 mg Dextrose (Dextrose 50%) 0 ml IV UD PRN PRN Reason: Hypoglycemia Diagnostic Test (Pha) (Accu-Chek) 1 each FS Q6 [facility] Last Admin: 03/18/17 06:10 Dose: 1 each Docusate Sodium (Colace) 100 mg PO BIDP PRN PRN Reason: Constipation Ferrous Sulfate (Ferrous Sulfate) 325 mg PO [facility] Last Admin: 03/18/17 08:40 Dose: 325 mg Furosemide (Lasix) 40 mg PO DAILY [facility] Last Admin: 03/18/17 08:39 Dose: 40 mg Heparin Sodium (Porcine) (Heparin) 5,000 unit SQ Q12 [facility] Last Admin: 03/18/17 08:40 Dose: 5,000 unit Piperacillin Sod/Tazobactam (Sod 3.375 gm/ Dextrose) 50 mls @ 100 mls/hr IV Q8H [facility] Last Admin: 03/18/17 05:55 Dose: 100 mls/hr Insulin Human Lispro (Humalog) 0 unit SQ Q6 [facility] PRN Reason: Protocol Last Admin: 03/18/17 06:10 Dose: Not Given [facility]othy[facility]ine [facility]) [facility] Last Admin: 03/18/17 06:59 Dose: 25 mcg Metoprolol Tartrate (Lopressor) 5 mg IV Q4HP PRN PRN Reason: Tachyarrhythmias Metoprolol Tartrate (Lopressor) 100 mg PO DAILY [facility] Last Admin: 03/18/17 08:39 Dose: 100 mg Metoprolol Tartrate (Lopressor) 75 mg PO HS [facility] Last Admin: 03/17/17 20:25 Dose: 75 mg Nystatin (Nystatin) 0 dose TOPICAL TID [facility] Last Admin: 03/18/17 08:39 Dose: 1 dose Ondansetron HCl (Zofran) 4 mg IV Q4HP PRN PRN Reason: Nausea And Vomiting Pantoprazole Sodium (Protonix) 40 mg PO BIDAC [facility] Last Admin: 03/18/17 06:59 Dose: 40 mg Simvastatin (Zocor) 40 mg PO HS [facility] Last Admin: 03/17/17 20:25 Dose: 40 mg Warfarin Sodium (Coumadin Per Pharmacy) 1 order PO UD [facility] Warfarin Sodium (Coumadin) 3 mg PO DAILY@1400 [facility] Medical - PN: A/P - Time Spent With Patient Total time spent is greater than 50% in coordination of care (as documented) at patient's floor/unit and/or counseling patient: - Narrative A/P Narrative: A/P parastomal hernia with SBO: management as per Gen surgery, no evidence of SBO, colostomy bag is draining appropriately now. monitor. DM: diabetic diet is resumed, sliding scale insulin. glucose values at goal. CKD : Creat 2.2 improved now back at baseline,discontinue IV fluids Afib Paroxysmal: On coumadin for anticoagulation, INR is subtherapeutic, rate controlled, resume home dose of metoprolol, Coumadin resumed. Pharmacy to dose HTN: home blood pressure medications resumed, bp stable Pneumonia-noted on x-ray, slight worsening of infiltrates. Clinically does not have any symptoms. On IV Zosyn for now. repeat chest x ray. Morbid obesity: weight loss needed Severe Aortic stenosis: 0.8cms on Aortic area on last echo, pt has poor functional status, but denies any syncope or chest pain. Monitor Anemia/ REcent GIB: hb stable, no e/o bleed Gout, on allopuriol will continue DVT hep sq Decub ulcers: Wound care eval, appreciate help by Dr Pedraza. BPH patel in place for now. Medical - PN: Qual - VTE Deep Vein Thrombosis/Pulmonary Embolism Present on Admission: No
[2017-03-18] MEDS ORDERED: WARFARIN 3 MG TABLET PO SCH (14:00)
--- NOTE | 2017-03-18 16:02 | XRay Report ---
CLINICAL INFORMATION: Hypoxia COMPARISON: 03/16/2017 FINDINGS: Moderate cardiomegaly is unchanged. Mediastinum is unremarkable. Pulmonary vessels show mild upper lobe redistribution.. No definite edema. Mild bibasilar infiltrates have progressed small right pleural effusion is also progressing IMPRESSION: Mild patchy bibasilar infiltrates worsening slightly with small effusions. Borderline CHF Interpreted and Authenticated by: Gene Capellan 03/18/17
[2017-03-18] MEDS ORDERED: VANCOMYCIN PER PHARMACY IV ONE (16:18)
[2017-03-18] MEDS ORDERED: VANCOMYCIN 1,500 MG in 0.9 % SODIUM CHLORIDE 500 ML IV ONE (19:00)
[2017-03-18] MEDS ORDERED: VANCOMYCIN PER PHARMACY IV SCH (20:00)
[2017-03-18] MEDS: METOPROLOL TARTRATE 25 MG TABLET PO SCH (21:32)
[2017-03-18] MEDS: SIMVASTATIN 40 MG TABLET PO SCH (21:32)
[2017-03-19 05:28] LABS: Basophils # (Auto) 0 K/mcL (0.0-0.3); Basophils % (Auto) 0.4 % (0.0-2.0); Eosinophils # (Auto) 0.4 K/mcL (0.0-0.7); Eosinophils % (Auto) 6.3 % (0.0-7.0); Granulocytes % (Auto) 52.3 % (38.0-78.0); Lymphocytes # (Auto) 1.7 K/mcL (1.5-4.8); Lymphocytes % (Auto) 30.3 % (15.5-49.0); Mean Cell Volume 99.8 fL (80.0-100.0); Mean Corpuscular HGB Conc 32.8 g/dL (31.0-36.0); Mean Corpuscular Hemoglobin 32.7 pg (26.0-34.0); Monocytes # (Auto) 0.6 K/mcL (0.1-0.9); Monocytes % (Auto) 10.7 % (1.0-12.0); Platelet Count 155 K/mcL (140-440); RBC 3.01 M/mcL (4.50-5.90); Red Cell Distribution Width 17.6 % (11.5-14.5)
[2017-03-19 05:44] LABS: ALT/SGPT 16 U/l (0-40); Albumin 2.6 gm/dL (3.2-5.2); Albumin/Globulin Ratio 0.6 (1.0-2.3); Alkaline Phosphatase 153 U/L (39-117); Bilirubin,Direct < 0.2 mg/dL (0.0-0.3); Blood Urea Nitrogen 31 mg/dl (8-23); Gamma Glutamyl Transpeptidase 40 U/L (8-61); Uric Acid 4.7 mg/dL (2.5-8.0)
[2017-03-19] MEDS: PIPERACILLIN SODIUM/TAZOBACTAM 3.375 GM in DEXTROSE 5% IN WATER 50 ML IV SCH (05:55)
[2017-03-19] MEDS: INSULIN LISPRO 1 UNIT/0.01 ML UNIT SQ SCH ×2 (06:00→12:44)
[2017-03-19] MEDS: LEVOTHYROXINE 25 MCG TABLET PO SCH (08:49)
[2017-03-19] MEDS: METOPROLOL TARTRATE 50 MG TABLET PO SCH (08:49)
[2017-03-19] MEDS: NYSTATIN POWDER BOTTLE 15GM TOPICAL SCH (08:50)
[2017-03-19] MEDS: HEPARIN 5,000 UNIT/ML VIAL SQ SCH (08:50)
[2017-03-19] MEDS: ALLOPURINOL 100 MG TABLET PO SCH (08:50)
[2017-03-19] MEDS: FUROSEMIDE 40 MG TABLET PO SCH (08:50)
[2017-03-19] MEDS: PANTOPRAZOLE 40 MG TABLET PO SCH (08:50)
[2017-03-19] MEDS: FERROUS SULFATE 325 MG TABLET PO SCH (08:50)
--- NOTE | 2017-03-19 11:26 | Discharge Summary ---
Medical - DS: Prov Patient information: Note initiated : 03/19/17 at 11:23 am Service Date, if different from initiated Date: [] Patient: Kevin Albrecht 81 y/o M admitted on 03/16/17 for Recheck/Parastomal Hernia. Chief Complaint: [] Date of admission: 03/16/17 03:26 Discharge date: 03/19/17 Primary care physician: Apryl Bravo Admitting clinician: Fred Vivas Consults: 03/16/17 02:05 Consult to Physician [CONS] Stat Comment: Consulting Provider: Fred Vivas Reason For Exam: Physician to Consult 03/16/17 02:07 Consult to Physician [CONS] Stat Comment: Consulting Provider: Tay Clay Reason For Exam: Physician to Consult 03/16/17 16:58 Consult to Physician [CONS] Routine Comment: Consulting Provider: Delroy Pedraza Reason For Exam: Physician to Consult Discharging clinician: Tay Clay Medical - DS: Meds - Discharge Medications Prescriptions: Levofloxacin [Levaquin] 750 mg PO Q48H #4 tab Active and Home Medications: Home Medications Allopurinol [Zyloprim] 200 mg PO DAILY 05/29/15 [History Confirmed 03/16/17 Last Taken 03/15/17 08:26] Furosemide [Lasix] 40 mg PO DAILY 05/29/15 [History Confirmed 03/16/17 Last Taken 03/15/17 08:26] Levothyroxine [Synthroid] 25 mcg PO DAILY 05/29/15 [History Confirmed 03/16/17 Last Taken 03/15/17 08:26] Simvastatin [Zocor] 40 mg PO HS 05/29/15 [History Confirmed 03/16/17 Last Taken 03/15/17 19:41] Accu-Chek 1 each FS ACHS strip 01/08/17 [Rx Confirmed 03/16/17 Last Taken 02/17 12:00] Acetaminophen [Tylenol] 650 mg PO Q6HP PRN tablet 01/08/17 [Rx Confirmed Last Taken 03/11/17 01:39] Docusate Sodium [Colace] 100 mg PO BID PRN capsule 01/08/17 [Rx Confirmed 03/16 Last Taken 02/16/17 08:00] Insulin Glargine, Human [Lantus] 5 unit SQ DAILY unit 01/08/17 [Rx Confirmed Last Taken 03/15/17 09:17] Insulin Lispro [Humalog] See Protocol SQ ACHS #1 unit 01/08/17 [Rx Confirmed 10/23 Last Taken 03/15/17 20:54] Ferrous Sulfate 325 mg PO DAILY 02/18/17 [History Confirmed 03/16/17 Last Taken 03/15/17 08:26] Glimepiride 1 mg PO DAILY 02/18/17 [History Confirmed 03/16/17 Last Taken 08:26] Pantoprazole [Protonix] 40 mg PO BIDAC #60 tab 02/23/17 [Rx Confirmed 03/16/17 Last Taken 03/15/17 18:11] Amoxicillin/Potassium Clav [Augmentin] 500 mg PO BID 03/16/17 [History Confirmed 03/16/17 Last Taken 03/15/17 19:41] Glucagon,Human Recombinant [Glucagon Emergency Kit] 1 mg IJ ONCE PRN 03/16/17 [ History Confirmed 03/16/17 Last Taken Unknown] Metoprolol Tartrate [Lopressor] 75 mg PO HS 03/16/17 [History Confirmed Last Taken 03/15/17 18:11] Metoprolol Tartrate [Lopressor] 100 mg PO DAILY 03/16/17 [History Confirmed 10/23 Last Taken 03/15/17 08:26] Nystatin [Nyata] 100,000 unit TP TID 03/16/17 [History Confirmed 03/16/17 Last Taken Unknown] Warfarin [Coumadin] 3 mg PO HS 03/16/17 [History Confirmed 03/16/17 Last Taken 03/15/17 19:52] Medical - DS: Hosp Hospital course: Mr. Albrecht is a 81 year old Male with h/o colostomy, due to h/o ca colon, who is a [facility] resident presented to the ER overnight with complaints of pain around her stoma site for the last 2 days, no stool output in the stoma bag for 2 days. 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 The patient notes that for the last 2 days he has noticed pain around the stomal region, moderate to severe, may be aggravated by some food but not really sure. He denies any other complaints. The patient noted that there has been no stomal output and that's why the [facility] sent [facility] here for evaluation. The patient was admitted under General surgery and medicine was asked to consult for management of chronic medical problems. By the time of my evaluation, the patient stoma was working again and there was liquid stool in the bag. In the emergency room, the patient had a CT scan of the abdomen done which showed bowel loops herniated around the stoma causing obstruction, as well as small bowel obstruction. The patient was therefore admitted to the hospital for further management. NG tube was placed. the patient's bowels started to work spontaneously, the CT scan report did not reveal any small bowel obstruction. Dr. VIVAS, the surgeon evaluated the patient , but since the bowels working, There was no need for any surgery the patient has extensive wounds, multiple ulcers in his perineal egion in the back. He will be followed up by wound care at discharge. He was evaluated by Dr. PEDRAZA while inpatient the patient's chest x-ray showed worsening bibasilar infiltrates, which was initially treated with IV antibiotics patient has cough, however, does not need oxygen, he is using CPAP at night. He will be . Discharged on oral levofloxacin 750 mg every other day, total of 4 doses. The rest of the stay in the hospital was unremarkable, the patient will be discharged back to [facility] facility, no changes and chronic home medications done. r Discharge diagnosis: Bowel obstruction, Pneuomonia. - Time Spent with Patient Total time spent providing and/or coordinating discharge services: Greater than 30 minutes Medical - DS: Exam - Constitutional Vitals: Vital Signs Temp Pulse Pulse Pulse Resp BP Pulse Ox 03/19/17 11:18 97.4 F 94 H 28 H 118/76 94 03/19/17 08:15 97.3 F 101 H 20 143/95 96 03/19/17 03:15 96.7 F L 99 H 24 H 127/83 97 03/18/17 23:45 97.6 F 112 H 32 H 123/87 93 03/18/17 19:20 98.6 F 97 H 28 H 106/70 94 03/18/17 15:09 97.7 F 20 117/71 95 03/18/17 14:24 100 H 28 H 95 Intake and Output 03/18/17 03/19/17 03/19/17 21:59 05:59 13:59 Intake Total 730 / 730 250 / 250 200 / 200 Output Total 750 / 750 850 / 850 Balance -20 / -20 -600 / -600 200 / 200 Intake: IV 50 / 50 50 / 50 Zosyn 3.375 gm In Dextrose 5% 50 / 50 50 / 50 in Water 50 ml @ 100 mls/hr IV Q8H [facility] Rx#:[id number] Oral 680 / 680 200 / 200 200 / 200 Output: Urine Catheter Amount 725 / 725 850 / 850 Stool 25 / 25 Other: Meal Dinner Breakfast Percent of Meal Consumed 100% 50% Feeding Ability Independent Weight 295 lb 8 oz Additional comments: Constitutional; Afebrile, cooperative, alert, not in distress. Eyes- No icterus, , No periorbital swelling Ears- Ext ear normal, hearing normal to conversation. Neck- Midline trachea, supple Respiratory system: Air Entry equal on both sides, No crackles or wheezing, no rhonchi. ant exam normal, CVS- Rate rhythm regular, S1,S2 heard, no gallop, no rub. Abdomen- Soft nontender abdomen no tenderness, no guarding or rigidity, large abdomen, stool present in the ostomy bag, [employer]AM [employer]- AOOx3, moving all extremities, no gross focal deficit noted. Medical - DS: Data Procedures and tests throughout hospitalization: CT abdomen IMPRESSION: 1. 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 No evidence of obstruction or incarceration. The distal descending colon appears mildly narrowed as it enters the hernia site. 2. 8 cm ventral hernia, just medial to the larger hernia containing a segment of nonincarcerated nonobstructed distal transverse colon 3. 3.4 cm ventral hernia, inferiorly in the left anterior false pelvis, contains only mesenteric fat - stable 4. Moderate left diaphragmatic hernia allowing the spleen stomach and mesenteric fat to migrate into the lower chest cavity. This is new from the previous study 5. Moderate bilateral pleural effusions - new. Consider chest x-ray to evaluate for CHF 6. Torres catheter in satisfactory position urinary bladder. There is marked urinary bladder wall thickening suggesting cystitis or other infiltrative bladder pathology. 7. Probable progressive cirrhotic changes. Please correlate with hepatic serologies and other clinical history. No evidence of portal hypertension or ascites X ray chest. IMPRESSION: Small patchy bibasilar infiltrates and effusions worsening. Stable cardiomegaly - no evidence CHF Upper GI series IMPRESSION: Large peristomal hernia in the left anterior abdominal wall containing multiple loops of jejunum which are freely mobile and not incarcerated or obstructed. Labs on day of discharge: Labs from last 24 hours 03/19/17 03/19/17 03/19/17 09:31 04:25 04:25 WBC RBC Hgb Hct MCV MCH MCHC RDW Plt Count MPV Gran % Lymph % (Auto) Johnson % (Auto) Eos % (Auto) Baso % (Auto) Gran # Lymph # (Auto) Johnson # (Auto) Eos # (Auto) Baso # (Auto) PT 18.2 H INR 1.5 H Sodium 139 Potassium 3.8 Chloride 100 Carbon Dioxide 28 Anion Gap 11.0 BUN 31 H Creatinine 2.0 H GFR Calculation 30 Glucose 100 Uric Acid 4.7 Calcium 8.3 L Phosphorus 2.9 Magnesium 1.8 Total Bilirubin 0.4 Direct Bilirubin < 0.2 GGT 40 AST 29 ALT 16 Alkaline Phosphatase 153 H Lactate Dehydrogenase 232 Total Protein 6.7 Albumin 2.6 L Globulin 4.1 H Albumin/Globulin Ratio 0.6 L Triglycerides 112 Random Vancomycin 11.0 Vancomycin Dose Not Reportable Vanco Last Dose Time Not Reportable 03/19/17 04:25 WBC 5.7 RBC 3.01 L Hgb 9.9 L Hct 30.1 L MCV 99.8 MCH 32.7 MCHC 32.8 RDW 17.6 H Plt Count 155 MPV 7.9 Gran % 52.3 Lymph % (Auto) 30.3 Johnson % (Auto) 10.7 Eos % (Auto) 6.3 Baso % (Auto) 0.4 Gran # 3.0 Lymph # (Auto) 1.7 Johnson # (Auto) 0.6 Eos # (Auto) 0.4 Baso # (Auto) 0 PT INR Sodium Potassium Chloride Carbon Dioxide Anion Gap BUN Creatinine GFR Calculation Glucose Uric Acid Calcium Phosphorus Magnesium Total Bilirubin Direct Bilirubin GGT AST ALT Alkaline Phosphatase Lactate Dehydrogenase Total Protein Albumin Globulin Albumin/Globulin Ratio Triglycerides Random Vancomycin Vancomycin Dose Vanco Last Dose Time Medical - DS: A/P - Patient/Caregiver Discharge Instructions Activity: as per physical therapy, increase activity as tolerated Diet: Cardiac (Fluid restriction to 1500ml/ 24 hrs ), Renal/Consistent Carbs Additional Instructions: Wound care Cleansing skin of extremities with Chlorhexidine and Application of foam Mepilex bordered dressings, follow-up with Dr. PEDRAZA in the wound care clinic in 1-2 weeks take antibiotics as prescribed, levofloxacin 750 mg every other day for total of 4 doses. Follow-up with her primary care provider in one week. CHECK INR IN 3 Days, follow up with PCP Motor the emergency room if shortness of breath, fever, chest pain, any other acute concerning symptom. good bowel regime to be maintained. Physical therapy, occupational therapy, speech therapy at the rehabilitation center aspiration precautions - Follow up Plan Follow up with: Arpyl Bravo MD [Primary Care Provider] - Disposition: Xfer SNF Prognosis: Fair Rehab Potential: Fair I certify that the patient requires SNF services: Yes Overall status at discharge: patient is progressing back to baseline Medical - DS: Qual - VTE Deep Vein Thrombosis/Pulmonary Embolism Present on Admission: No
[2017-03-19] MEDS ORDERED: VANCOMYCIN 1,500 MG in 0.9 % SODIUM CHLORIDE 500 ML IV SCH (13:00)
== END 2017-03-19 13:50 | DRG 393 ==
LOC: ED 00:12 → MEDSUR 03:26
PROVIDERS: ADMIT Family Medicine Adult Medicine; ATTEND Internal Medicine